=== PATIENT | female | born 1940 | race Caucasian/White ===

== ENCOUNTER → 2017-11-29 09:25 | Outpatient (CLI) | payer MEDICARE, OTHER, SELFPAY ==
[2017-11-29 09:55] LABS: Bacteria Urine None Seen; RBC Urine None Seen (0-5/HPF); WBC Urine None Seen (0-5/HPF)
[2017-11-29 10:14] LABS: Hemoglobin 13.5 g/dL (12.0-16.0); Mean Corpuscular HGB Conc 32.9 % (30-36); Mean Corpuscular Hemoglobin 27.8 PG (26-34); Mean Corpuscular Volume 84.3 fL (80-100); Platelet Count 432 X10^3/uL (150-400); Red Blood Cell Count 4.87 X10^6/uL (4.0-5.2); Red Cell Distribution Width 14.3 % (11.6-14.8); White Blood Cell Count 12.2 X10^3/uL (4.5-11.0)
[2017-11-29 10:27] LABS: INR 2.4 (0.9-1.3)
[2017-11-29 11:06] LABS: Alanine Aminotransferase 52 IU/L (9-52); Albumin 3.7 g/dL (3.5-5.0); Albumin Globulin Ratio 1.3 (1.0-2.8); Alkaline Phosphatase 59 U/L (38-126); Aspartate Aminotransferase 33 IU/L (14-36); Bilirubin Total 0.9 mg/dL (0.2-1.3); Blood Urea Nitrogen 12 mg/dL (7-17); Calcium 8.9 mg/dL (8.4-10.2); Chloride 91 mmol/L (98-107); Estimated Glomerular Filt Rate > 60.0 mL/min (>60); Globulin 2.9 g/dL (1.7-4.1); Glucose 86 mg/dL (80-110); Phosphorous 3.5 mg/dL (2.8-4.1); Potassium 2.8 mmol/L (3.4-5.1); Sodium 140 mmol/L (137-145); Total Protein 6.6 g/dL (6.3-8.2)
[2017-11-29 11:11] LABS: HEMOLYSIS 18 (0-50)
[2017-11-29 12:37] LABS: Carbon Dioxide 40 mmol/L (22-32)
[2017-11-29 13:01] LABS: Appearance Urine UA CLEAR; Bilirubin Urine UA NEGATIVE (NEGATIVE); Color Urine UA YELLOW; Glucose Urine UA NEGATIVE (Normal); Ketones Urine UA NEGATIVE (NEGATIVE); Leukocyte Esterase Urine UA NEGATIVE (NEGATIVE); Nitrite Urine UA Negative (Negative); Occult Blood Urine UA NEGATIVE (Negative); Protein Urine UA NEGATIVE (Negative); Specific Gravity Urine UA <=1.005 (1.000-1.035); Urobilinogen Urine UA 0.2 E.U./dL (0.2)
[2017-11-29 13:51] LABS: Culture Indicated Urine Cult Not Indicated; Urine Comments Microscopic Normal
== END ==
PROVIDERS: PCP Internal Medicine; Visit Provider Specialist
DX: I50.31 Acute diastolic (congestive) heart failure (principal); Z01.818 Encounter for other preprocedural examination; I35.0 Nonrheumatic aortic (valve) stenosis
CPT/HCPCS: 36415; 80053; 80069; 81001; 85027; 85610

== ENCOUNTER → 2017-12-03 09:07 | Outpatient (CLI) | payer MEDICARE, OTHER, SELFPAY ==
[2017-12-03 09:50] LABS: BUN Creatinine Ratio 26.7 (6-22); Blood Urea Nitrogen 16 mg/dL (7-17); Calcium 9.5 mg/dL (8.4-10.2); Carbon Dioxide 33 mmol/L (22-32); Chloride 100 mmol/L (98-107); Estimated Glomerular Filt Rate > 60.0 mL/min (>60); Glucose 89 mg/dL (80-110); HEMOLYSIS < 15 (0-50); Potassium 5.1 mmol/L (3.4-5.1); Sodium 140 mmol/L (137-145)
== END ==
PROVIDERS: PCP Internal Medicine; Visit Provider Specialist
DX: I48.1 Persistent atrial fibrillation (principal); E87.6 Hypokalemia; I50.31 Acute diastolic (congestive) heart failure
CPT/HCPCS: 36415; 80048

== ENCOUNTER 2017-12-10 16:48 | Emergency (ER) | payer MEDICARE, OTHER, SELFPAY ==
--- NOTE | 2017-12-10 16:49 | DI.US.S_ITS ---
PROCEDURE: US ARTERIAL DUPLEX LE LT INDICATIONS: TAVR on Sunday, large painful mass in groin TECHNIQUE: Color and pulse Doppler interrogation was performed of the left groin lower extremity arterial system, with image documentation. COMPARISON: None. FINDINGS: A 43 mm diameter pseudoaneurysm with a short and broad neck is present, arising from the left common femoral artery. IMPRESSION: Broad-necked and short-necked pseudoaneurysm arising from the left common femoral artery. Due to these features, this would not be amenable to percutaneous thrombin injection. Surgical consultation recommended. Dictated by: Nichole Larsen M.D. on 12/10/2017 at 17:15 Approved by: Nichole Larsen M.D. on 12/10/2017 at 17:17
[2017-12-10 16:53] VITALS: BP 144/85; PULSE 92; RESP 21; TEMP 36.8; O2SAT 99
[2017-12-10 17:00] VITALS: BP 147/77; PULSE 97; O2SAT 99
[2017-12-10 17:07] LABS: Add Manual Diff / Slide Review NO; Basophils Percent Auto 0.6 % (0-2); Eosinophils Percent Auto 0.1 % (2-4); Hematocrit 33.7 % (36-46); Hemoglobin 11.1 g/dL (12.0-16.0); Mean Corpuscular HGB Conc 33.1 % (30-36); Mean Corpuscular Hemoglobin 28.1 PG (26-34); Monocytes Percent Auto 5.7 % (3-14); Neutrophils Absolute Auto 12500 /uL (3000-5900); Neutrophils Percent Auto 84.6 % (50-75); Platelet Count 177 X10^3/uL (150-400); Red Blood Cell Count 3.97 X10^6/uL (4.0-5.2); Red Cell Distribution Width 13.9 % (11.6-14.8); White Blood Cell Count 14.8 X10^3/uL (4.5-11.0)
[2017-12-10 17:15] LABS: INR 1.4 (0.9-1.3); Prothrombin Time 14.9 SECONDS (10.1-12.7)
[2017-12-10 17:19] LABS: Alanine Aminotransferase 39 IU/L (9-52); Albumin 3.9 g/dL (3.5-5.0); Albumin Globulin Ratio 1.3 (1.0-2.8); Alkaline Phosphatase 52 U/L (38-126); Aspartate Aminotransferase 30 IU/L (14-36); BUN Creatinine Ratio 26.7 (6-22); Bilirubin Total 0.9 mg/dL (0.2-1.3); Blood Urea Nitrogen 16 mg/dL (7-17); Calcium 9.1 mg/dL (8.4-10.2); Carbon Dioxide 28 mmol/L (22-32); Chloride 98 mmol/L (98-107); Estimated Glomerular Filt Rate > 60.0 mL/min (>60); Globulin 2.9 g/dL (1.7-4.1); Glucose 114 mg/dL (80-110); HEMOLYSIS 22 (0-50); Potassium 3.8 mmol/L (3.4-5.1); Sodium 136 mmol/L (137-145); Total Protein 6.8 g/dL (6.3-8.2)
--- NOTE | 2017-12-10 17:25 | ED.LOWEXIN ---
HPI - Extremity Injury (Lower) General Chief Complaint: Extremity Injury, Lower Stated Complaint: Aneurysm Time Seen by Provider: 12/10/17 16:49 Source: patient, family and EMS Mode of arrival: EMS History of Present Illness HPI Narrative: 76-year-old female on Xarelto with recent TAVR at [facility] in [place] presents to the emergency department via EMS for evaluation of a painful, pulsatile mass in her left groin. She presents from her primary care provider's office with suspicion of pseudoaneurysm in her left groin, confirmed by bedside ultrasound in the office. She complains of increasing pain over the past few days and now a near inability to walk. She denies any injury. She denies chest pain or shortness of breath. She denies numbness, tingling or weakness of her leg. Last solid food at 1400, last water at 1500. MD complaint: thigh injury Onset (ago): day(s) Related Data Home Medications Medication Instructions Recorded Confirmed diltiazem HCl 240 mg PO QDAY #0 07/31/11 levalbuterol tartrate [Xopenex HFA] 1 puff INH Q4HP #0 07/31/11 triamcinolone acetonide [Nasacort] 1 puff INTRANASAL QDAYP PRN #0 07/31/11 levothyroxine 0.112 mg PO QDAY #0 03/01/12 acetaminophen [Tylenol Extra 500 mg PO Q6HP #0 12/28/12 Strength] cetirizine 10 mg PO PRN #0 12/28/12 diazepam [Valium] 5 mg PO Q8HP #0 12/28/12 fluticasone-salmeterol [Advair 1 puff INH BID #0 12/28/12 Diskus] [ALAWAY 0.025%] 1 drp OPHTH BID #0 09/10/17 chlorthalidone 25 mg PO QDAY #0 09/10/17 cholecalciferol (vitamin D3) 1 tab PO QDAY #0 09/10/17 [Vitamin D3] diltiazem HCl [Cardizem] 60 mg PO Q6HP PRN #0 09/10/17 diphenoxylate-atropine 1 tab PO Q6HP PRN #0 09/10/17 omeprazole 20 mg PO BID #0 09/10/17 warfarin [Coumadin] 5 mg PO QDAY #0 09/10/17 Previous Rx's Medication Instructions Recorded budesonide 6 mg PO QDAY #60 cap 09/11/17 fluconazole [Diflucan] 100 mg PO QDAY #10 tab 09/11/17 Allergies Allergy/AdvReac Type Severity Reaction Status Date / Time propoxyphene Allergy Unknown UPSET Unverified 10/10/17 12:54 STOMACH Sulfa (Sulfonamide Allergy Unknown Unverified 10/10/17 12:54 Antibiotics) aspirin AdvReac Mild CONTRAINDICATED Unverified 10/10/17 12:54 WITH WARFARIN Review of Systems Review of Systems All systems reviewed & are unremarkable except as noted in HPI and below Constitutional Denies chills, Denies fever(s), Denies lethargy and Denies weakness Eyes Denies change in vision, Denies eye discharge, Denies irritation and Denies loss of vision ENT Ears, Nose, Mouth, and Throat: Denies change in voice, Denies neck pain and Denies sore throat Cardiovascular Denies chest pain, Denies irregular heart rhythm, Denies lightheadedness, Denies palpitations, Denies dyspnea, Denies dyspnea on exertion and Denies orthopnea Respiratory Denies cough, Denies dyspnea, Denies dyspnea on exertion and Denies wheezing Gastrointestinal Gastrointestinal: Denies abdominal pain, Denies change in bowel habits, Denies diarrhea, Denies nausea and Denies vomiting Genitourinary Denies hematuria, Denies flank pain, Denies urinary incontinence and Denies urinary urgency Musculoskeletal Denies neck pain and Reports radiating pain into limb Integumentary/Breasts Denies pruritus, Denies erythema, Denies rash and Denies wounds Neurologic Denies confusion, Denies loss of vision and Denies weakness Psychiatric Denies anxiety, Denies confusion, Denies depression, Denies homicidal ideation and Denies suicidal ideation Endocrine Denies palpitations Hematologic/Lymphatic Denies easy bruising Allergic/Immunologic Denies wheezing Exam Initial Vital Signs Initial Vital Signs: Vital Signs Temperature 98.2 F 12/10/17 16:53 Pulse Rate 92 H 12/10/17 16:53 Respiratory Rate 21 12/10/17 16:53 Blood Pressure 144/85 H 12/10/17 16:53 Pulse Oximetry 99 12/10/17 16:53 Const General: cooperative and well developed Nutritional Appearance: well nourished Orientation: alert, awake, oriented x3 and not confused Eyes General: appearance normal, both eyes and all related structures Eyelids: eyelids normal Conjunctivae: conjunctivae normal Sclera: sclerae normal Pupils: PERRL EOM: EOM intact bilaterally Resp Effort & Inspection: normal respiratory effort, able to speak in complete sentences, no respiratory distress and no use of accessory muscles Auscultation: clear to auscultation bilaterally, no rales, no rhonchi and no wheezes Cardio Rate: regular rate Rhythm: regular rhythm Heart Sounds: no click, no gallops, no murmurs and no rubs Pulses: normal peripheral pulses Back/Spine/Pelvis Back: No CVA tenderness Cervical Spine: cervical ROM normal and No pain with cervical ROM Thoracic/Lumbar Spine: thoracic and lumbar spine normal to inspection Extrem Other: Tender, palpable, pulsatile mass left groin with significant surrounding ecchymosis. Distal CMS intact Course Orders Ordered: ED Orders 12/10/17 16:49 US arterial duplex LE LT Stat Type and Screen Stat 12/10/17 16:56 Complete Blood Count AUTO DIFF Stat Comprehensive Metabolic Panel Stat Prothrombin Time INR Stat Consultations Consultation #1: Dr. Fink happy to accept patient at [facility] on 6N room 611. They request patient STAT for waiting interventional team Time: 17:34 Vital Signs - 8 hr 12/10/17 16:53 12/10/17 17:00 Temperature 98.2 F Pulse Rate 92 H 97 H Respiratory Rate 21 Blood Pressure 144/85 H Blood Pressure [Left Arm] 147/77 H Pulse Oximetry 99 99 MDM - Extremity Injury (Lower) Medical Records Attestation: I reviewed the patient's medical records. Lab Data Attestation: I reviewed the patient's lab results. Result diagrams: 12/10/17 16:56 12/10/17 16:56 Lab Results 12/10/17 12/10/17 12/10/17 Range/Units 16:56 16:56 16:56 WBC 14.8 H (4.5-11.0) X10^3/uL RBC 3.97 L (4.0-5.2) X10^6/uL Hgb 11.1 L (12.0-16.0) g/dL Hct 33.7 L (36-46) % MCV 85.0 (80-100) fL MCH 28.1 (26-34) PG MCHC 33.1 (30-36) % RDW 13.9 (11.6-14.8) % Plt Count 177 (150-400) X10^3/uL Neut % (Auto) 84.6 H (50-75) % Lymph % (Auto) 9.0 L (25-40) % Sargent % (Auto) 5.7 (3-14) % Eos % (Auto) 0.1 L (2-4) % Baso % (Auto) 0.6 (0-2) % Neut # (Auto) 60481 H (8945-1443) /uL PT 14.9 H (10.1-12.7) SECONDS INR 1.4 H (0.9-1.3) Sodium 136 L (137-145) mmol/L Potassium 3.8 D (3.4-5.1) mmol/L Chloride 98 (98-107) mmol/L Carbon Dioxide 28 (22-32) mmol/L BUN 16 (7-17) mg/dL Creatinine 0.60 (0.52-1.04) mg/dL Estimated GFR > 60.0 (>60) mL/min BUN/Creatinine Ratio 26.7 H (6-22) Glucose 114 H (80-110) mg/dL Calcium 9.1 (8.4-10.2) mg/dL Total Bilirubin 0.9 (0.2-1.3) mg/dL AST 30 (14-36) IU/L ALT 39 (9-52) IU/L Alkaline Phosphatase 52 (38-126) U/L Total Protein 6.8 (6.3-8.2) g/dL Albumin 3.9 (3.5-5.0) g/dL Globulin 2.9 (1.7-4.1) g/dL Albumin/Globulin Ratio 1.3 (1.0-2.8) Imaging Data Art US: Radiologist's impression: 3.9 x 2.4 x 4.3 cm pseudoaneurysm involving left LFA Discharge Plan Departure Patient Disposition: [facility] Clinical Impression: Pseudoaneurysm of left femoral artery Prescriptions: No Action diltiazem HCl 240 MG capsule,extended release 24hr 240 mg PO QDAY Qty: 0 RF: 0 levalbuterol tartrate [Xopenex HFA] 45 MCG/INH HFA aerosol inhaler 1 puff INH Q4HP Qty: 0 RF: 0 triamcinolone acetonide [Nasacort] 55 MCG/PUFF aerosol,spray 1 puff Intranasal QDAYP PRNQty: 0 RF: 0 levothyroxine 112 MCG tablet 0.112 mg PO QDAY Qty: 0 RF: 0 fluticasone-salmeterol [Advair Diskus] 250 MCG/50 MCG blister with device 1 puff INH BID Qty: 0 RF: 0 cetirizine 10 MG tablet 10 mg PO PRN Qty: 0 RF: 0 acetaminophen [Tylenol Extra Strength] 500 MG tablet 500 mg PO Q6HP Qty: 0 RF: 0 diazepam [Valium] 5 MG tablet 5 mg PO Q8HP Qty: 0 RF: 0 chlorthalidone 25 MG tablet 25 mg PO QDAY Qty: 0 RF: 0 diphenoxylate-atropine 2.5 MG/0.025 MG tablet 1 tab PO Q6HP PRNQty: 0 RF: 0 omeprazole 20 MG capsule,delayed release(DR/EC) 20 mg PO BID Qty: 0 RF: 0 cholecalciferol (vitamin D3) [Vitamin D3] 2,000 UNIT tablet 1 tab PO QDAY Qty: 0 RF: 0 [ALAWAY 0.025%] 1 drp OPHTH BID Qty: 0 RF: 0 diltiazem HCl [Cardizem] 60 MG tablet 60 mg PO Q6HP PRNQty: 0 RF: 0 warfarin [Coumadin] 5 MG tablet 5 mg PO QDAY Qty: 0 RF: 0 fluconazole [Diflucan] 100 MG tablet 100 mg PO QDAY Qty: 10 RF: 2 budesonide 3 MG capsule,delayed,extend.release 6 mg PO QDAY Qty: 60 RF: 0
[2017-12-10 17:28] VITALS: BP 143/72; PULSE 90; RESP 19; O2SAT 100
[2017-12-10 17:30] VITALS: BP 143/72; PULSE 87; O2SAT 100
[2017-12-10] MEDS: fentaNYL 100 MCG/2 ML INJ 25 MCG IV (17:47)
== END 2017-12-10 17:49 | disposition short-term general hospital (02) ==
PROVIDERS: Emergency Provider Emergency Medicine; PCP Internal Medicine
DX: I72.4 Aneurysm of artery of lower extremity (principal)
CPT/HCPCS: 36591; 80053; 85025; 85610; 86850; 86900; 86901; 93926; 96374; 99283; 99284; J3010

== ENCOUNTER → 2018-01-03 12:15 | Outpatient (CLI) | payer MEDICARE, OTHER, SELFPAY ==
[2018-01-03 12:38] LABS: Prothrombin Time 71.5 SECONDS (10.1-12.7)
[2018-01-03 13:22] LABS: INR 6.7 (0.9-1.3)
== END ==
PROVIDERS: PCP Internal Medicine; Visit Provider Physician Assistant
DX: I48.91 Unspecified atrial fibrillation (principal)
CPT/HCPCS: 36415; 85610

== ENCOUNTER → 2018-01-07 13:47 | Outpatient (CLI) | payer MEDICARE, OTHER, SELFPAY ==
[2018-01-07 15:01] LABS: BUN Creatinine Ratio 26.7 (6-22); Blood Urea Nitrogen 16 mg/dL (7-17); Calcium 9.5 mg/dL (8.4-10.2); Carbon Dioxide 33 mmol/L (22-32); Chloride 95 mmol/L (98-107); Estimated Glomerular Filt Rate > 60.0 mL/min (>60); Glucose 103 mg/dL (80-110); HEMOLYSIS < 15 (0-50); Potassium 4.7 mmol/L (3.4-5.1); Sodium 139 mmol/L (137-145)
== END ==
PROVIDERS: PCP Internal Medicine; Visit Provider Physician Assistant
DX: I48.1 Persistent atrial fibrillation (principal)
CPT/HCPCS: 36415; 80048

== ENCOUNTER → 2018-01-10 13:56 | Outpatient (CLI) | payer MEDICARE, OTHER, SELFPAY ==
--- NOTE | 2018-01-10 | DI.ECHO.S_ITS ---
[facility]---------+ [facility] +---------+ : : [address] : : : : [phone] : : : : Phone: [phone]+ Echocardiogram Report + + :Name: GABRIELA LAWRENCE Study Date: 01/10/2018 Height: 62 in : :[facility] Weight: 129 lb : : Gender: Female BSA: 1.6 m2 : :: 1940 Age: 77 yrs BP: 138/60 mmHg: :Reason For Study: Aortic valve replacement - bioprosthetic : :Ordering Physician: Homero : :Akira Performed By: Daysi Valentin : :Referring: Dr. Iggy Trujillo : + + Interpretation Summary The left ventricle is normal in size. Left ventricular ejection fraction is estimated to be 65 +/- 5%. There has been no significant change in LV EF since the previous study. The right ventricle is grossly normal size. The right ventricular systolic function is normal. There is a bioprosthetic aortic valve (New). There is mild to moderate perivalvular regurgitation around the prosthetic aortic valve. Ao V2 max: 234.7 cm/sec Ao V2 mean: 150.2 cm/sec Ao max P.0 mmHg Ao mean P.7 mmHg There is mild to moderate tricuspid regurgitation. Compared to the prior echo exam, there has been no change in TR severity. The right ventricular systolic pressure is estimated at 51 mmHg assuming a right atrial pressure of 3 mm Hg. Compared to the prior echo exam, there has been an slight increase in the severity of pulmonary hypertension. Mild atherosclerotic plaque(s) in the aortic arch. Procedure: A two-dimensional transthoracic echocardiogram with color flow and Doppler was performed. The study quality was technically good. Comparison is made with the echocardiogram of 10-31-17. The heart rate ranged between 51-70 bpm during the study. The patient was in atrial fibrillation with heart rates between 51-70 bpm during the exam. Left Ventricle: The left ventricle is normal in size. Left ventricular wall thickness is at the upper limits of normal. There is no thrombus. A false chord is noted (normal variant). Left ventricular ejection fraction is estimated to be 65 +/- 5%. There has been no significant change since the previous study. There are no focal wall motion abnormalities. Diastolic function could not be accurately assessed due to atrial fibrillation. Right Ventricle: The right ventricle is grossly normal size. The right ventricular systolic function is normal. Atria: The left atrium is severely dilated. There is severe biatrial enlargement. Both atria have remained unchanged in size since the prior echo exam. The interatrial septum is intact with no evidence for an atrial septal defect. Mitral Valve: The mitral valve leaflets appear mildly thickened, but open well. There is mild to moderate mitral annular calcification. The mitral valve chordae are thickened and/or calcified. There is mild mitral regurgitation. Compared to the prior echo study, there has been no change in the severity of mitral regurgitation. Aortic Valve: There is a bioprosthetic aortic valve. There is mild to moderate perivalvular regurgitation around the prosthetic aortic valve. Ao V2 max: 234.7 cm/sec Ao V2 mean: 150.2 cm/sec Ao max P.0 mmHg Ao mean P.7 mmHg. Tricuspid Valve: The tricuspid valve leaflets are thin and pliable. There is mild to moderate tricuspid regurgitation. The right ventricular systolic pressure is estimated at 51 mmHg assuming a right atrial pressure of 3 mm Hg. Compared to the prior echo exam, there has been no change in TR severity. Compared to the prior echo exam, there has been an increase in the severity of pulmonary hypertension. Pulmonic Valve: The pulmonic valve is not well seen, but is grossly normal. There is mild pulmonic regurgitation. Great Vessels: The aortic root is normal size. The dimensions of the ascending aorta are normal. Mild atherosclerotic plaque(s) in the aortic arch. The IVC is of normal diameter and collapses greater than 50% with a sniff. This suggests a low right atrial pressure of 3 mm Hg. Pericardium/ Pleura There is no pericardial effusion. There is no pleural effusion. MMode/2D Measurements & Calculations LVIDd: 4.4 cm LVOT diam: 1.8 cm LVIDs: 2.1 cm Ao root diam: 2.7 cm FS: 52.1 % Aortic Jxn: 2.0 cm EPSS: 0.34 cm asc Aorta Diam: 2.7 cm IVSd: 1.1 cm Ao Arch Diam (Prox Trans): 3.0 cm LVPWd: 0.83 cm LV montemayor. diameter/BSA (cm/m^2): 2.8 LV sys. diameter/BSA (cm/m^2): 1.3 LA dimension: 3.3 cm RA long axis: 5.9 cm LA A2 area: 23.8 cm2 RA area: 21.3 cm2 LA A4 area: 22.0 cm2 RA vol: 65.8 ml LA length (vol): 5.4 cm RA : 41.5 ml/m2 LA vol: 82.1 ml IVC diam: 1.7 cm LA vol index: 51.7 ml/m2 RVDd major: 4.9 cm RVD1 (basal): 3.5 cm RVD2 (mid): 2.7 cm Doppler Measurements & Calculations Ao V2 max: 234.7 cm/sec AI P1/2t: 712.7 msec Ao V2 mean: 150.2 cm/sec AI dec slope: 112.6 cm/sec2 Ao max P.0 mmHg Ao mean P.7 mmHg Ao V2 VTI: 49.2 cm Med Peak E' Prabhu: 6.9 cm/sec TR max prabhu: 345.5 cm/sec Lat Peak E' Prabhu: 7.5 cm/sec TR max P.8 mmHg MV P1/2t: 76.3 msec PA V2 max: 112.9 cm/sec PA V2 mean: 69.8 cm/sec PA mean P.4 mmHg PA Accel Time: 0.14 sec MV P1/2t max prabhu: 160.5 cm/sec MVA(P1/2t): 2.9 cm2 Reading Physician:RADHA
== END ==
PROVIDERS: PCP Internal Medicine; Visit Provider Physician Assistant
DX: I08.2 Rheumatic disorders of both aortic and tricuspid valves (principal); Z95.2 Presence of prosthetic heart valve; R60.0 Localized edema
CPT/HCPCS: 93306

== ENCOUNTER → 2018-01-14 13:19 | Outpatient (CLI) | payer MEDICARE, OTHER, SELFPAY ==
[2018-01-14 15:37] LABS: BUN Creatinine Ratio 28.3 (6-22); Blood Urea Nitrogen 17 mg/dL (7-17); Calcium 9.2 mg/dL (8.4-10.2); Carbon Dioxide 34 mmol/L (22-32); Chloride 97 mmol/L (98-107); Estimated Glomerular Filt Rate > 60.0 mL/min (>60); Glucose 109 mg/dL (80-110); HEMOLYSIS < 15 (0-50); Potassium 3.8 mmol/L (3.4-5.1); Sodium 140 mmol/L (137-145)
== END ==
PROVIDERS: PCP Internal Medicine; Visit Provider Physician Assistant
DX: I48.1 Persistent atrial fibrillation (principal)
CPT/HCPCS: 36415; 80048

== ENCOUNTER → 2018-01-17 12:53 | Outpatient (CLI) | payer MEDICARE, OTHER, SELFPAY ==
--- NOTE | 2018-01-17 | DI.US.S_ITS ---
PROCEDURE: US PERIPH VENOUS LOW EXTREM LT INDICATIONS: LEFT LEG EDEMA TECHNIQUE: Real-time imaging, as well as color and pulse Doppler interrogation, were performed of the lower extremity deep veins from the inguinal ligament to the popliteal fossa. COMPARISON: None. FINDINGS: The deep veins are normally compressible, and free of intraluminal thrombus. Color and pulse Doppler demonstrate normal phasic intraluminal flow. There is normal augmentation response to distal compression maneuver. IMPRESSION: No deep venous thrombosis in the left lower extremity. Dictated by: Prisca Oliveira M.D. on 01/17/2018 at 14:51 Approved by: Prisca Oliveira M.D. on 01/17/2018 at 14:52
--- NOTE | 2018-01-17 | DI.US.S_ITS ---
PROCEDURE: US ARTERIAL DUPLEX LE LT INDICATIONS: LEFT LEG EDEMA TECHNIQUE: Color and pulse Doppler interrogation was performed of the left lower extremity arterial system, with image documentation. COMPARISON: [facility], [place], US ARTERIAL DUPLEX LE LT, 12/10/2017, 16:59. FINDINGS: Common femoral artery: 102 cm/sec, with triphasic flow. Deep femoral artery: 76 cm/sec, with biphasic flow. Proximal superficial femoral artery: 91 cm/sec, with biphasic flow. Mid superficial femoral artery: 107 cm/sec, with triphasic flow. Distal superficial femoral artery: 119 cm/sec, with triphasic flow. Popliteal artery: V3 cm/sec, with biphasic flow. Posterior tibial artery: 75 cm/sec, with biphasic flow. Anterior tibial artery/dorsalis pedis: 118 cm/sec, with triphasic flow. Aponte-scale imaging description: Scattered plaques. IMPRESSION: Scattered plaques in the left lower trachea arteries. No hemodynamic significant stenosis. Dictated by: Prisca Oliveira M.D. on 01/17/2018 at 22:24 Transcribed by: LUCIO on 01/17/2018 at 22:31 Approved by: Prisca Oliveira M.D. on 01/18/2018 at 7:40
== END ==
PROVIDERS: PCP Internal Medicine; Visit Provider Physician Assistant
DX: R60.0 Localized edema (principal)
CPT/HCPCS: 93926; 93971

== ENCOUNTER → 2018-01-29 10:50 | Outpatient (CLI) | payer MEDICARE, OTHER, SELFPAY ==
[2018-01-29 12:22] LABS: BUN Creatinine Ratio 26.7 (6-22); Blood Urea Nitrogen 16 mg/dL (7-17); Calcium 9.4 mg/dL (8.4-10.2); Carbon Dioxide 37 mmol/L (22-32); Chloride 98 mmol/L (98-107); Estimated Glomerular Filt Rate > 60.0 mL/min (>60); Glucose 117 mg/dL (80-110); HEMOLYSIS < 15 (0-50); Potassium 3.6 mmol/L (3.4-5.1); Sodium 141 mmol/L (137-145)
== END ==
PROVIDERS: PCP Internal Medicine; Visit Provider Physician Assistant
DX: I48.1 Persistent atrial fibrillation (principal)
CPT/HCPCS: 36415; 80048

== ENCOUNTER → 2018-02-12 09:02 | Outpatient (CLI) | payer MEDICARE, OTHER, SELFPAY ==
[2018-02-12 11:02] LABS: Cholesterol 153 mg/dL (140-199); HDL Cholesterol 61 mg/dL (40-60); LDL Cholesterol Calculated 75 mg/dL (<100); Triglycerides 85 mg/dL (35-150)
== END ==
PROVIDERS: PCP Internal Medicine; Visit Provider Internal Medicine
DX: E78.00 Pure hypercholesterolemia, unspecified (principal)
CPT/HCPCS: 36415; 80061

== ENCOUNTER → 2018-03-07 16:32 | Outpatient (CLI) | payer MEDICARE, OTHER, SELFPAY ==
[2018-03-07 17:51] LABS: Add Manual Diff / Slide Review NO; Basophils Percent Auto 0.4 % (0-2); Eosinophils Percent Auto 0.9 % (2-4); Hematocrit 38.4 % (36-46); Hemoglobin 12.4 g/dL (12.0-16.0); Lymphocytes Percent Auto 16.3 % (25-40); Mean Corpuscular HGB Conc 32.3 % (30-36); Mean Corpuscular Hemoglobin 27.1 PG (26-34); Mean Corpuscular Volume 83.7 fL (80-100); Monocytes Percent Auto 7.2 % (3-14); Neutrophils Absolute Auto 9200 /uL (3000-5900); Neutrophils Percent Auto 75.2 % (50-75); Platelet Count 330 X10^3/uL (150-400); Red Blood Cell Count 4.59 X10^6/uL (4.0-5.2); Red Cell Distribution Width 15.4 % (11.6-14.8); White Blood Cell Count 12.3 X10^3/uL (4.5-11.0)
[2018-03-07 17:56] LABS: BUN Creatinine Ratio 24.3 (6-22); Blood Urea Nitrogen 17 mg/dL (7-17); Carbon Dioxide 30 mmol/L (22-32); Chloride 104 mmol/L (98-107); Estimated Glomerular Filt Rate > 60.0 mL/min (>60); Glucose 94 mg/dL (80-110); HEMOLYSIS < 15 (0-50); Potassium 4.4 mmol/L (3.4-5.1); Sodium 142 mmol/L (137-145)
[2018-03-07 18:18] LABS: Free T4, Direct Thyroxine 1.85 ng/dL (0.78-2.19)
[2018-03-07 18:32] LABS: Thyroid Stimulating Hormone 0.06 uIU/mL (0.47-4.68)
== END ==
PROVIDERS: PCP Internal Medicine; Visit Provider Internal Medicine
DX: E87.6 Hypokalemia (principal); I10 Essential (primary) hypertension
CPT/HCPCS: 36415; 80048; 84439; 84443; 85025

== ENCOUNTER → 2018-04-22 15:23 | Outpatient (CLI) | payer MEDICARE, OTHER, SELFPAY ==
[2018-04-22 18:20] LABS: BUN Creatinine Ratio 31.7 (6-22); Blood Urea Nitrogen 19 mg/dL (7-17); Calcium 8.9 mg/dL (8.4-10.2); Carbon Dioxide 32 mmol/L (22-32); Chloride 100 mmol/L (98-107); Estimated Glomerular Filt Rate > 60.0 mL/min (>60); Glucose 84 mg/dL (80-110); HEMOLYSIS < 15 (0-50); Sodium 141 mmol/L (137-145)
== END ==
PROVIDERS: PCP Internal Medicine; Visit Provider Internal Medicine
DX: I35.0 Nonrheumatic aortic (valve) stenosis (principal)
CPT/HCPCS: 36415; 80048

== ENCOUNTER → 2018-05-24 10:56 | Outpatient (CLI) | payer MEDICARE, OTHER, SELFPAY ==
[2018-05-24 12:04] LABS: Blood Urea Nitrogen 18 mg/dL (7-17); Calcium 8.9 mg/dL (8.4-10.2); Carbon Dioxide 34 mmol/L (22-32); Chloride 99 mmol/L (98-107); Estimated Glomerular Filt Rate > 60.0 mL/min (>60); Glucose 72 mg/dL (80-110); HEMOLYSIS < 15 (0-50); Sodium 143 mmol/L (137-145)
== END ==
PROVIDERS: PCP Internal Medicine; Visit Provider Internal Medicine
DX: I50.21 Acute systolic (congestive) heart failure (principal)
CPT/HCPCS: 36415; 80048

== ENCOUNTER → 2018-06-20 11:01 | Outpatient (CLI) | payer MEDICARE, OTHER, SELFPAY ==
[2018-06-20 13:18] LABS: Blood Urea Nitrogen 15 mg/dL (7-17); Calcium 9.4 mg/dL (8.4-10.2); Carbon Dioxide 34 mmol/L (22-32); Chloride 99 mmol/L (98-107); Estimated Glomerular Filt Rate > 60.0 mL/min (>60); Glucose 77 mg/dL (80-110); HEMOLYSIS < 15 (0-50); Potassium 4.7 mmol/L (3.4-5.1); Sodium 144 mmol/L (137-145)
== END ==
PROVIDERS: PCP Internal Medicine; Visit Provider Internal Medicine
DX: I48.2 Chronic atrial fibrillation (principal)
CPT/HCPCS: 36415; 80048

== ENCOUNTER → 2018-07-23 14:49 | Outpatient (CLI) | payer MEDICARE, OTHER, SELFPAY ==
--- NOTE | 2018-07-23 | DI.ECHO.S_ITS ---
[facility]---------+ [facility] +---------+ : : [address] : [address] : : : : [phone] : : : : Phone: [phone]+ Echocardiogram Report + + :Name: GABRIELA LAWRENCE Study Date: 07/23/2018 Height: 62 in : :[facility] Exam Location: [facility] Weight: 133 lb : : Gender: Female BSA: 1.6 m2 : :: 1940 Age: 77 yrs BP: 130/72 mmHg: :Reason For Study: AVR : : Performed By: Irvin Glaser : :Referring: RUPERT HERNANDES : + + Interpretation Summary Afib with controlled rate. Normal LV size and wall thickness; normal wall motion and LV systolic function. EF is 70-75%. Severe biatrial enlargement. Aortic valve is replaced by history with a stented bioprosthesis via TAVR. There is mild perivalvular leak with associated mild AI. 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 Compared to prior study 12/2017 no changes have occurred. Procedure: A limited 2D, color and Doppler echocardiogram was performed to assess the patient's AVR. The study quality was technically good. Comparison is made with the echocardiogram of 01/10/18. The patient was in atrial fibrillation with controlled ventricular rate during the exam. The patient had a heart rate of 54-92 beats per minute. Left Ventricle: The left ventricle is normal in size. There is normal left ventricular wall thickness. The ejection fraction is estimated to be 70-75%. There are no focal wall motion abnormalities. Right Ventricle: The right ventricle is normal in size and function. Atria: The left atrium is severely dilated. Mitral Valve: There is moderate mitral annular calcification. The mitral valve leaflets are mildly calcified. Aortic Valve: There is a bioprosthetic aortic valve. There is mild perivalvular regurgitation around the prosthetic aortic valve. The peak aortic velocity is 2.29 m/sec. Tricuspid Valve: The tricuspid valve leaflets are thin and pliable. There is moderate tricuspid regurgitation. The right ventricular systolic pressure is estimated to be at least 40 mmHg based on an estimated right atrial pressure of 8 mm Hg. Pulmonic Valve: The pulmonic valve is normal in structure and function. There is trace pulmonic regurgitation. Great Vessels: The dimensions of the ascending aorta are normal. The IVC is dilated (diameter is greater than 2.1 cm) yet it collapses greater than 50% with a sniff. This suggests a right atrial pressure of 8 mm Hg. Pericardium/ Pleura There is no pericardial effusion. There is no pleural effusion. MMode/2D Measurements & Calculations LVIDd: 4.5 cm LVOT diam: 1.8 cm LVIDs: 2.5 cm asc Aorta Diam: 2.4 cm FS: 43.9 % IVSd: 0.83 cm LVPWd: 0.80 cm LV montemayor. diameter/BSA (cm/m^2): 2.8 LV sys. diameter/BSA (cm/m^2): 1.6 IVC diam: 2.2 cm Doppler Measurements & Calculations Ao V2 max: 229.4 cm/sec LVOT Max Prabhu: 118.3 cm/sec Ao V2 mean: 163.3 cm/sec LV V1 max P.6 mmHg Ao max P.1 mmHg LV V1 VTI: 24.5 cm Ao mean P.0 mmHg BLAKE(I,D): 1.1 cm2 Ao V2 VTI: 52.9 cm BLAKE(V,D): 1.3 cm2 sev ratio: 0.46 BLAKE indexed to BSA (cm^2/m^2): 0.71 AI P1/2t: 627.1 msec AI dec slope: 166.4 cm/sec2 TR max prabhu: 283.6 cm/sec SV(LVOT): 60.4 ml TR max P.2 mmHg Electronically signed by: Rupert Hernandes M.D. on Reading Physician:07/24/2018 10:01 AM
== END ==
PROVIDERS: PCP Internal Medicine; Visit Provider Internal Medicine
DX: I08.3 Combined rheumatic disorders of mitral, aortic and tricuspid valves (principal); Z95.2 Presence of prosthetic heart valve
CPT/HCPCS: 93307

== ENCOUNTER → 2018-08-02 12:43 | Outpatient (CLI) | payer MEDICARE, OTHER, SELFPAY ==
[2018-08-02 14:25] LABS: BUN Creatinine Ratio 33.3 (6-22); Blood Urea Nitrogen 20 mg/dL (7-17); Calcium 8.7 mg/dL (8.4-10.2); Carbon Dioxide 35 mmol/L (22-32); Chloride 98 mmol/L (98-107); Estimated Glomerular Filt Rate > 60.0 mL/min (>60); Glucose 90 mg/dL (80-110); HEMOLYSIS < 15 (0-50); Potassium 3.1 mmol/L (3.4-5.1); Sodium 141 mmol/L (137-145)
== END ==
PROVIDERS: PCP Internal Medicine; Visit Provider Internal Medicine
DX: I35.0 Nonrheumatic aortic (valve) stenosis (principal)
CPT/HCPCS: 36415; 80048

== ENCOUNTER → 2018-08-19 12:04 | Outpatient (CLI) | payer MEDICARE, OTHER, SELFPAY ==
[2018-08-19 12:59] LABS: BUN Creatinine Ratio 28.6 (6-22); Blood Urea Nitrogen 20 mg/dL (7-17); Calcium 8.6 mg/dL (8.4-10.2); Carbon Dioxide 33 mmol/L (22-32); Chloride 99 mmol/L (98-107); Estimated Glomerular Filt Rate > 60.0 mL/min (>60); Glucose 55 mg/dL (80-110); HEMOLYSIS < 15 (0-50); Potassium 3.1 mmol/L (3.4-5.1); Sodium 141 mmol/L (137-145)
== END ==
PROVIDERS: PCP Internal Medicine; Visit Provider Internal Medicine
DX: E87.6 Hypokalemia (principal)
CPT/HCPCS: 36415; 80048

== ENCOUNTER 2018-09-12 14:00 | Outpatient (RCR) | payer MEDICARE, OTHER, SELFPAY ==
[2018-02-19 14:43] VITALS: BP 118/60; BP 126/60; RESP 22; O2SAT 98; BMI 23.6
--- NOTE | 2018-03-18 15:36 | CR.REVALNOTE ---
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 CR PSYCHOSOCIAL RE-EVALUATION Progress to Goal slow progress. still discouraged by multiple dx's and different medications. encouraged today by doing a higher level on the NS Stress Managed work in progress. 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 She's concerned she won't be able to do all the stuff she did before, and therefore admits to being a hermit. Psych Consult No Stress Management Class Yes Uses Stress Management Skills Yes Coping Techniques Yes Relaxation Techniques Yes Positive Support Yes Note no changes CR PSYCHOSOCIAL PROVIDER EVAL Treatment Prescribed for Individual Yes Needs No Treatment Change Yes: Please Continue with Cardiopulmonary Rehabilitation as Ordered Date 03/18/18 CR Education Start: 02/19/18 13:57 Freq: Status: Active Protocol: Document 02/21/18 15:31 JCP (Rec: 02/21/18 15:32 JCP [id number]) CR EDUCATION Education FIRST FULL DAY IN CR TOLERATED OK. HAD HER STOP EVERY 5 MINUTES TO CATCH HER BREATH. Document 02/25/18 15:17 JCP (Rec: 02/25/18 15:17 JCP [id number]) CR EDUCATION Education DISCUSSED PACING HERSELF ON THE NUSTEP AND HOW TO BREATH Document 02/27/18 14:27 JCP (Rec: 02/27/18 14:27 JCP [id number]) CR EDUCATION Education EMOTIONS AND HEART DISEASE Document 02/28/18 15:45 CFS (Rec: 02/28/18 15:46 CFS [id number]) CR EDUCATION Education Stated that she was very tired and fatigued yesterday after workout and still feels fatigued today. Low back is bothering her today. Discussed again to do what she can. Document 03/06/18 15:12 NHAN (Rec: 03/06/18 15:12 NHAN [id number]) CR EDUCATION Education mets with [facility] Education pt intro and hx review Document 03/13/18 14:13 NHAN (Rec: 03/13/18 14:13 NHAN [id number]) CR EDUCATION Education CARDIAC STRUCTURE
[2018-04-17 15:03] VITALS: BP 130/64
[2018-06-17 16:02] VITALS: BP 114/68
[2018-07-15 15:41] VITALS: BP 126/72
[2018-08-14 15:57] VITALS: BP 110/58
[2018-09-12 15:37] VITALS: BP 136/72; BMI 23.2
== END 2018-09-13 15:11 ==
LOC: CAR 14:00
PROVIDERS: PCP Internal Medicine; Visit Provider Specialist
DX: Z95.2 Presence of prosthetic heart valve (principal)
CPT/HCPCS: 93797; 93798

== ENCOUNTER 2018-09-15 12:42 | Emergency (ER) | payer MEDICARE, OTHER, SELFPAY ==
[2018-09-15 12:50] VITALS: BP 158/88; PULSE 73; RESP 16; TEMP 36.6; O2SAT 100
--- NOTE | 2018-09-15 14:04 | ED.WOUNDLAC ---
HPI - Wound/Laceration General Chief Complaint: Wound/Laceration Stated Complaint: Hit in head, laceration Time Seen by Provider: 09/15/18 12:56 Source: patient and family Mode of arrival: ambulatory Limitations: no limitations History of Present Illness HPI narrative: Patient presents the emergency department after hitting her head with the handle of some clippers she was using while gardening. Patient states she did not get knocked out, and her main concern is that she has a wound at the edge of her right eyebrow. Patient is on Coumadin for aortic valve replacement, and states she bleeds more easily than usual. Her last INR was 3.5. Patient denies any other injuries. She denies visual changes or neurologic deficits otherwise. No headache. No other complaints this time. She states her last tetanus shot was about a week and half ago. Related Data Home Medications Medication Instructions Recorded Confirmed triamcinolone acetonide [Nasacort] 1 puff INTRANASAL QDAYP PRN #0 07/31/11 03/06/18 levothyroxine 0.112 mg PO QDAY #0 03/01/12 03/06/18 acetaminophen [Tylenol Extra 500 mg PO Q6HP PRN #0 12/28/12 03/06/18 Strength] diazepam [Valium] 5 mg PO Q8HP PRN #0 12/28/12 03/06/18 fluticasone-salmeterol [Advair 1 puff INH BID #0 12/28/12 03/06/18 Diskus] [ALAWAY 0.025%] 1 drp OPHTH BID #0 09/10/17 03/06/18 diltiazem HCl [Cardizem] 60 mg PO Q6HP PRN #0 09/10/17 03/06/18 diphenoxylate-atropine 1 tab PO Q6HP PRN #0 09/10/17 03/06/18 omeprazole 20 mg PO DAILY #0 09/10/17 03/06/18 warfarin [Coumadin] 5 mg PO QDAY #0 09/10/17 03/06/18 Vitamin D3 1 tab PO DAILY 12/10/17 03/06/18 amlodipine 5 mg PO DAILY 12/10/17 03/06/18 atorvastatin 80 mg PO BEDTIME 12/10/17 03/06/18 benzonatate 1 cap PO Q8H PRN 12/10/17 03/06/18 budesonide 9 mg PO QDAY 12/10/17 03/06/18 cetirizine [Zyrtec] 10 mg PO DAILY PRN 12/10/17 03/06/18 furosemide 40 mg PO DAILY 12/10/17 03/06/18 ketotifen fumarate [Alaway] 1 drp OPHTHALMIC (EYE) BID 12/10/17 03/06/18 levalbuterol tartrate [Xopenex HFA] 1 puff INHALATION Q4H PRN 12/10/17 03/06/18 nystatin 5 ml PO QID 12/10/17 03/06/18 potassium chloride 20 meq PO TID 12/10/17 03/06/18 rivaroxaban [Xarelto] 20 mg PO QPM 12/10/17 03/06/18 ticagrelor [Brilinta] 1 tab PO BID 12/10/17 03/06/18 warfarin 2 mg PO DIRECTED 12/10/17 03/06/18 Respironics DreamStation Auto CPAP #1 ea 08/08/18 08/08/18 metoprolol succinate ER 50 mg 50 mg PO DAILY 08/09/18 tablet,extended release 24 hr Allergies Allergy/AdvReac Type Severity Reaction Status Date / Time propoxyphene Allergy Unknown UPSET Unverified 03/06/18 13:11 STOMACH Sulfa (Sulfonamide Allergy Unknown Unverified 03/06/18 13:11 Antibiotics) aspirin AdvReac Mild CONTRAINDICATED Unverified 03/06/18 13:11 WITH WARFARIN Review of Systems Constitutional Denies chills, Denies fever(s), Denies lethargy and Denies weakness Eyes Denies change in vision, Denies eye discharge, Denies irritation and Denies loss of vision ENT Ears, Nose, Mouth, and Throat: Denies change in voice, Denies neck pain and Denies sore throat Cardiovascular Denies chest pain, Denies irregular heart rhythm, Denies lightheadedness, Denies palpitations, Denies dyspnea, Denies dyspnea on exertion and Denies orthopnea Respiratory Denies cough, Denies dyspnea, Denies dyspnea on exertion and Denies wheezing Gastrointestinal Gastrointestinal: Denies abdominal pain, Denies change in bowel habits, Denies diarrhea, Denies nausea and Denies vomiting Genitourinary Denies hematuria, Denies flank pain, Denies urinary incontinence and Denies urinary urgency Musculoskeletal Denies neck pain Integumentary/Breasts Denies pruritus, Denies erythema, Denies rash and Denies wounds Comments: Laceration right eyebrow. Neurologic Denies confusion, Denies loss of vision and Denies weakness Psychiatric Denies anxiety, Denies confusion, Denies depression, Denies homicidal ideation and Denies suicidal ideation Endocrine Denies palpitations Hematologic/Lymphatic Denies easy bruising Allergic/Immunologic Denies wheezing [facility] Medical History Laceration (Acute) Obstructive sleep apnea of adult (Chronic) Colitis (Acute) Acute chest pain (Acute) Surgical History H/O prosthetic aortic valve replacement (Acute) Social History Smoking Status: Never smoker Social History Smoking Status: Never smoker Exam Initial Vital Signs Initial Vital Signs: Vital Signs Temperature 97.8 F 09/15/18 12:50 Pulse Rate 73 09/15/18 12:50 Respiratory Rate 16 09/15/18 12:50 Blood Pressure 158/88 H 09/15/18 12:50 Pulse Oximetry 100 09/15/18 12:50 Const General: cooperative and well developed Nutritional Appearance: well nourished Orientation: alert, awake, oriented x3 and not confused [facility] Head: normocephalic, atraumatic and laceration (1 cm laceration at distal aspect right eyebrow. Bleeding controlled. No FB.) Ears: external ears normal Nose: external nose normal and No nasal discharge Face and sinus: face symmetric and No dry mucous membranes Mouth: oral mucosae normal and moist mucous membranes Teeth and gingiva: dentition normal Eyes General: appearance normal, both eyes and all related structures Eyelids: eyelids normal Conjunctivae: conjunctivae normal Sclera: sclerae normal Pupils: PERRL EOM: EOM intact bilaterally Neck Neck: normal visual inspection, trachea midline, No lymphadenopathy, No midline deformity and No JVD Lymphatic: No lymphedema Chest Chest: normal inspection of the chest Resp Effort & Inspection: normal respiratory effort, able to speak in complete sentences, no respiratory distress and no use of accessory muscles Back/Spine/Pelvis Back: No CVA tenderness Cervical Spine: cervical ROM normal and No pain with cervical ROM Thoracic/Lumbar Spine: thoracic and lumbar spine normal to inspection Skin General: no rashes or lesions noted, No jaundice and No petechiae Neuro General: alert, oriented x3, gait normal and no focal motor deficits Speech: speech normal Extrem General: full ROM, no clubbing, cyanosis or edema, no pedal edema and no calf tenderness Psych Appearance: well kempt Mental Status: mental status grossly normal Attitude: cooperative Thought Content: normal and suicidality Judgment: judgment good Procedures Laceration Repair Laceration 1: Site: face Side (If applicable): right Size (cm): 1 Description: linear Depth: simple, single layer Local Anesthetic: lidocaine 2% Amount of anesthesia used (mL): 2 Pre-repair: wound explored, irrigated extensively and deep structures intact Skin layer closed with: nylon Size (cm): 5-0 Number of sutures: 3 Technique: simple, interrupted Course Course Narrative: Patient was very well appearing, and had had very superficial, minimal trauma to her head. As such, I did not suspect or feel the patient was at risk for intracranial hemorrhage. As such, I did not feel that imaging was indicated. The patient was alert and neurologically intact. We have discussed wound care at home, as well as the timeline for suture removal. We have discussed follow-up for this. We have also discussed the usual indications for return. Patient and expressed understanding. Vital Signs - 8 hr 09/15/18 12:50 09/15/18 14:18 Temperature 97.8 F Pulse Rate 73 70 Respiratory Rate 16 15 Blood Pressure 158/88 H Blood Pressure [Right Arm] 150/84 H Pulse Oximetry 100 97 MDM - Wound/Laceration Medical Records Attestation: I reviewed the patient's medical records. Discharge Plan Departure Patient Disposition: Home Clinical Impression: Laceration Instructions: How to Care for a Laceration After Repair, DI for Laceration Repair Activity Restrictions/Additional Instructions: Please keep your wound clean and dry. You may let water run over the wound in the shower, but do not rub, scrub or immerse the wound until sutures are removed. Sutures should be removed in 5-7 days. You may see your primary doctor or urgent care for this. If you develop signs of wound infection, as we have discussed, please be seen at that time. Prescriptions: No Action triamcinolone acetonide [Nasacort] 55 MCG/PUFF aerosol,spray 1 puff Intranasal QDAYP PRN (Reason: Congestion) Qty: 0 RF: 0 levothyroxine 112 MCG tablet 0.112 mg PO QDAY Qty: 0 RF: 0 fluticasone-salmeterol [Advair Diskus] 250 MCG/50 MCG blister with device 1 puff INH BID Qty: 0 RF: 0 acetaminophen [Tylenol Extra Strength] 500 MG tablet 500 mg PO Q6HP PRN (Reason: Pain, Mild) Qty: 0 RF: 0 diazepam [Valium] 5 MG tablet 5 mg PO Q8HP PRN (Reason: Anxiety) Qty: 0 RF: 0 diphenoxylate-atropine 2.5 MG/0.025 MG tablet 1 tab PO Q6HP PRN (Reason: Diarrhea) Qty: 0 RF: 0 omeprazole 20 MG capsule,delayed release(DR/EC) 20 mg PO DAILY Qty: 0 RF: 0 [ALAWAY 0.025%] 1 drp OPHTH BID Qty: 0 RF: 0 diltiazem HCl [Cardizem] 60 MG tablet 60 mg PO Q6HP PRN (Reason: palpitations) Qty: 0 RF: 0 warfarin [Coumadin] 5 MG tablet 5 mg PO QDAY Qty: 0 RF: 0 atorvastatin 80 mg tablet 80 mg PO BEDTIME RF: 0 nystatin 100,000 unit/mL suspension 5 ml PO QID RF: 0 potassium chloride 10 mEq Capsule, Extended Release 20 meq PO TID RF: 0 cetirizine [Zyrtec] 10 mg Tablet 10 mg PO DAILY PRN (Reason: Allergy Symptoms) RF: 0 benzonatate 200 mg capsule 1 cap PO Q8H PRN (Reason: Cough) RF: 0 ketotifen fumarate [Alaway] 0.025 % (0.035 %) Drops 1 drp ophthalmic (eye) BID RF: 0 amlodipine 5 mg tablet 5 mg PO DAILY RF: 0 warfarin 2 mg tablet 2 mg PO DIRECTED RF: 0 furosemide 20 mg tablet 40 mg PO DAILY RF: 0 levalbuterol tartrate [Xopenex HFA] 45 mcg/actuation Hfa Aerosol Inhaler 1 puff INHALATION Q4H PRN (Reason: Shortness Of Breath) RF: 0 ticagrelor [Brilinta] 90 mg tablet 1 tab PO BID RF: 0 rivaroxaban [Xarelto] 20 mg tablet 20 mg PO QPM RF: 0 Vitamin D3 3,000 unit tablet 1 tab PO DAILY RF: 0 budesonide 3 MG capsule,delayed,extend.release 9 mg PO QDAY RF: 0 Respironics DreamStation Auto CPAP Qty: 1 RF: 0 metoprolol succinate 50 mg tablet extended release 24 hr 50 mg PO DAILY RF: 0 Referrals: Iggy Trujillo MD [Primary Care Provider] -
[2018-09-15 14:18] VITALS: BP 150/84; PULSE 70; RESP 15; O2SAT 97
[2018-09-15 15:21] VITALS: BP 132/86; PULSE 72; RESP 16; O2SAT 100
== END 2018-09-15 15:00 | disposition home or self-care (01) ==
PROVIDERS: Emergency Provider Emergency Medicine; PCP Internal Medicine
DX: S01.111A Laceration without foreign body of right eyelid and periocular area, initial encounter (principal)
CPT/HCPCS: 99282; 99283

== ENCOUNTER → 2018-09-30 13:30 | Outpatient (CLI) | payer MEDICARE, OTHER, SELFPAY ==
[2018-09-30 14:41] LABS: Blood Urea Nitrogen 21 mg/dL (7-17); Calcium 9.2 mg/dL (8.4-10.2); Carbon Dioxide 33 mmol/L (22-32); Chloride 101 mmol/L (98-107); Estimated Glomerular Filt Rate > 60.0 mL/min (>60); Glucose 102 mg/dL (80-110); HEMOLYSIS < 15 (0-50); Potassium 5.1 mmol/L (3.4-5.1); Sodium 143 mmol/L (137-145)
== END ==
PROVIDERS: PCP Internal Medicine; Visit Provider Internal Medicine
DX: I35.0 Nonrheumatic aortic (valve) stenosis (principal)
CPT/HCPCS: 36415; 80048

== ENCOUNTER → 2018-10-04 13:54 | Outpatient (CLI) | payer MEDICARE, OTHER, SELFPAY ==
--- NOTE | 2018-10-04 | DI.MG.S_ITS ---
BILATERAL DIGITAL SCREENING MAMMOGRAM 3D/2D WITH CAD: 10/04/2018 CLINICAL: Routine screening. Comparison is made to exams dated: 10/01/2017 mammogram, 09/28/2016 mammogram, and 09/27/2015 mammogram - [facility]. The tissue of both breasts is heterogeneously dense. This may lower the sensitivity of mammography. Current study was also evaluated with a Computer Aided Detection (CAD) system. There are benign vascular calcifications in both breasts. No significant masses, calcifications, or other findings are seen in either breast. There has been no significant interval change. IMPRESSION: There is no mammographic evidence of malignancy. A 1 year screening mammogram is recommended. This exam was interpreted at Station ID: [id number]. NOTE: For mammograms, a report in lay terms will be sent to the patient. Approximately 15% of breast malignancies will not be visualized mammographically. In the management of a palpable breast mass, a negative mammogram must not discourage biopsy of a clinically suspicious lesion. Electronically Signed By: Landon rock/estela:10/04/2018 14:59:32 letter sent: Normal Exam ACR BI-RADS Category 2: Benign Finding(s) 3342F
== END ==
PROVIDERS: PCP Internal Medicine; Visit Provider Internal Medicine
DX: Z12.31 Encounter for screening mammogram for malignant neoplasm of breast (principal)
CPT/HCPCS: 77063; 77067

== ENCOUNTER → 2018-11-28 12:10 | Outpatient (CLI) | payer MEDICARE, OTHER, SELFPAY ==
--- NOTE | 2018-11-28 | DI.RAD.S_ITS ---
PROCEDURE: XR LUMBAR SPINE 2-3V INDICATIONS: LOW BACK PAIN TECHNIQUE: 3 views of the lumbar spine were acquired. COMPARISON: [facility], CT, ABDOMEN/PELVIS WITH CONTRAST, 05/19/2015, 2:23. FINDINGS: Bones: 5 [id number] vertebrae are present. There is normal bony alignment. No definite acute vertebral body compression fractures. No suspicious bony lesions. Degenerative disc disease is moderately severe at L5-S1 as is facet osteoarthritis. There is an inferior endplate mild impaction injury involving the L1 vertebral body, and this does not appear to have been present in May [address] scanning Soft tissues: Overlying bowel gas pattern is normal. No suspicious soft tissue calcifications. IMPRESSION: Moderately severe to severe degenerative disc disease and facet osteoarthritis at L5-S1. Please correlate for whether some form of prior trauma has occurred subsequent to the CT scan from May of 2015 to explain the inferior endplate mild compression fracture of L1, chronicity uncertain. It is possible that this is acute or subacute by appearance but considered more likely chronic. Dictated by: Pj Dave M.D. on 11/28/2018 at 13:17 Approved by: Pj Dave M.D. on 11/28/2018 at 13:19
== END ==
PROVIDERS: PCP Internal Medicine; Visit Provider Internal Medicine
DX: M54.5 Low back pain (principal); M51.37 Other intervertebral disc degeneration, lumbosacral region; M47.817 Spondylosis without myelopathy or radiculopathy, lumbosacral region
CPT/HCPCS: 72100

== ENCOUNTER 2018-12-01 22:36 | Inpatient (IN) | payer MEDICARE, OTHER, SELFPAY ==
[2018-12-01 22:53] VITALS: BP 173/91; PULSE 57; RESP 20; TEMP 36.5; O2SAT 100; BMI 27.1
--- NOTE | 2018-12-01 22:53 | DI.RAD.S_ITS ---
PROCEDURE: XR CHEST 1V INDICATIONS: SOB, CP TECHNIQUE: One view of the chest was acquired. COMPARISON: [facility], , CHEST 1 VIEW, 09/10/2017, 13:25. FINDINGS: Surgical changes and devices: Cardiac valvular postsurgical changes Lungs and pleura: No acute consolidation. Scattered subsegmental atelectasis and/or scarring. No pleural effusions or pneumothorax. Mediastinum: Mediastinal contours appear normal. Heart size is stable. Bones and chest wall: No suspicious bony lesions. Overlying soft tissues appear unremarkable. IMPRESSION: No acute disease or interval change Dictated by: Chris Lal M.D. on 12/02/2018 at 8:11 Approved by: Chris Lal M.D. on 12/02/2018 at 8:13
--- NOTE | 2018-12-01 23:03 | ED.CHESTPAIN ---
HPI - Chest Pain General Chief Complaint: Chest Pain Stated Complaint: valve replacement,SOB,swelling hands and feet Time Seen by Provider: 12/01/18 22:41 Source: patient and family Mode of arrival: ambulatory Limitations: no limitations History of Present Illness HPI narrative: 77F nonsmoker with cardiac history presents with 2 weeks of progressive lower extremity swelling, SOB, and weight gain of about 10 pounds. She is not dizzy, weak or lightheaded. She complains of exertional dyspnea and orthopnea. She denies any medication change or dietary change. She has had not N/V/D. She is under the care of cardiology at [facility]. She is due for her annual echo next week. Onset (ago): day(s) Duration: constant Associated symptoms: dyspnea Related Data Home Medications Medication Instructions Recorded Confirmed triamcinolone acetonide [Nasacort] 1 puff INTRANASAL QDAYP PRN #0 07/31/11 11/07/18 levothyroxine 0.112 mg PO QDAY #0 03/01/12 11/07/18 acetaminophen [Tylenol Extra 500 mg PO Q6HP PRN #0 12/28/12 11/07/18 Strength] diazepam [Valium] 5 mg PO Q8HP PRN #0 12/28/12 11/07/18 fluticasone propion-salmeterol 1 puff INH BID #0 12/28/12 11/07/18 [Advair Diskus] [ALAWAY 0.025%] 1 drp OPHTH BID #0 09/10/17 11/07/18 diltiazem HCl [Cardizem] 60 mg PO Q6HP PRN #0 09/10/17 11/07/18 diphenoxylate-atropine 1 tab PO Q6HP PRN #0 09/10/17 11/07/18 warfarin [Coumadin] 5 mg PO QDAY #0 09/10/17 11/07/18 Vitamin D3 1 tab PO DAILY 12/10/17 11/07/18 atorvastatin 80 mg PO BEDTIME 12/10/17 11/07/18 budesonide 9 mg PO QDAY 12/10/17 11/07/18 cetirizine [Zyrtec] 10 mg PO DAILY PRN 12/10/17 11/07/18 furosemide 40 mg PO DAILY 12/10/17 11/07/18 ketotifen fumarate [Alaway] 1 drp OPHTHALMIC (EYE) BID 12/10/17 11/07/18 levalbuterol tartrate [Xopenex HFA] 1 puff INHALATION Q4H PRN 12/10/17 11/07/18 nystatin 5 ml PO QID 12/10/17 11/07/18 potassium chloride 20 meq PO TID 12/10/17 11/07/18 warfarin 2 mg PO DIRECTED 12/10/17 11/07/18 Respironics DreamStation Auto CPAP #1 ea 08/08/18 11/07/18 metoprolol succinate ER 50 mg 50 mg PO DAILY 08/09/18 11/07/18 tablet,extended release 24 hr clopidogrel 75 mg tablet 75 mg PO DAILY 11/07/18 11/07/18 mirtazapine 7.5 mg tablet 7.5 mg PO DAILY 11/07/18 11/07/18 ranitidine 150 mg tablet 150 mg PO DAILY 11/07/18 11/07/18 Allergies Allergy/AdvReac Type Severity Reaction Status Date / Time propoxyphene Allergy Unknown UPSET Unverified 11/07/18 14:33 STOMACH Sulfa (Sulfonamide Allergy Unknown Verified 12/01/18 22:59 Antibiotics) acetaminophen Allergy Verified 12/01/18 22:59 [From [facility]-N 100] azithromycin Allergy Difficulty Verified 12/01/18 22:59 Breathing aspirin AdvReac Mild CONTRAINDICATED Unverified 11/07/18 14:33 WITH WARFARIN pantoprazole AdvReac Gastrointestinal Verified 12/01/18 22:59 Upset trazodone AdvReac Depression Verified 12/01/18 22:59 Review of Systems Constitutional Denies chills, Denies fever(s), Denies lethargy and Denies weakness Eyes Denies change in vision, Denies eye discharge, Denies irritation and Denies loss of vision ENT Ears, Nose, Mouth, and Throat: Denies change in voice, Denies neck pain and Denies sore throat Cardiovascular Denies chest pain, Denies irregular heart rhythm, Reports leg edema, Denies lightheadedness, Denies palpitations, Reports dyspnea, Reports dyspnea on exertion and Reports orthopnea Respiratory Denies cough, Reports dyspnea, Reports dyspnea on exertion and Denies wheezing Gastrointestinal Gastrointestinal: Denies abdominal pain, Denies change in bowel habits, Denies diarrhea, Denies nausea and Denies vomiting Genitourinary Denies hematuria, Denies flank pain, Denies urinary incontinence and Denies urinary urgency Musculoskeletal Denies neck pain Integumentary/Breasts Denies pruritus, Denies erythema, Denies rash and Denies wounds Neurologic Denies confusion, Denies loss of vision and Denies weakness Psychiatric Denies anxiety, Denies confusion, Denies depression, Denies homicidal ideation and Denies suicidal ideation Endocrine Denies palpitations Hematologic/Lymphatic Denies easy bruising Allergic/Immunologic Denies wheezing [facility] Medical History Obstructive sleep apnea of adult (Chronic) Colitis (Acute) Acute chest pain (Acute) Laceration (Inactive) Surgical History H/O prosthetic aortic valve replacement (Acute) Social History (Updated 11/07/18 @ 16:07 by LYN Hughes) marital status: details: to Alena, lives in [place] household members: spouse lives independently: Yes caregiver/support person: No housing: house Smoking Status: Never smoker Social History marital status: details: to Alena, lives in [place] household members: spouse lives independently: Yes caregiver/support person: No housing: house Smoking Status: Never smoker Exam Narrative Exam Narrative: GENERAL: Pleasant 77-year-old female appears stated age, in mild distress HEAD: Atraumatic. Normocephalic. No temporal or scalp tenderness. EYES: Pupils equal round and reactive. Extraocular motions intact. No scleral icterus. No injection or drainage. ENT: Nose without bleeding, purulent drainage or septal hematoma. Throat without erythema, tonsillar hypertrophy or exudate. Uvula midline. Airway patent. NECK: Trachea midline. No JVD or lymphadenopathy. Supple, nontender, no meningeal signs. CARDIOVASCULAR: Regular rate and rhythm without murmurs, gallops, or rubs. RESPIRATORY: Faint crackles in bilateral bases GASTROINTESTINAL: Abdomen soft, non-tender, nondistended. No hepato-splenomegaly, or palpable masses. No guarding. EXTREMITIES: 2+ pitting edema in bilateral lower extremities BACK: Nontender without deformity or crepitance. No flank tenderness. NEURO: AOx3. SKIN: No rash or erythema. Initial Vital Signs Initial Vital Signs: Vital Signs Temperature 97.7 F 12/01/18 22:53 Pulse Rate 57 L 12/01/18 22:53 Respiratory Rate 20 12/01/18 22:53 Blood Pressure 173/91 H 12/01/18 22:53 Pulse Oximetry 100 12/01/18 22:53 Course Orders Ordered: ED Orders 12/01/18 22:53 XR chest 1V Stat 12/01/18 23:15 B Type Natriuretic Peptide Stat Complete Blood Count AUTO DIFF Stat Comprehensive Metabolic Panel Stat Lipase Stat Troponin & CK Cardiac Panel Stat Discontinued Medications Furosemide (Lasix) 40 mg IV NOW ONE Stop: 12/01/18 23:48 Last Admin: 12/02/18 00:08 Dose: 40 mg Consultations Consultation #1: call to Dr. Fan (cardiology at [facility]) whom recommends admitting patient here, continuing to diuresis, working on BP and obtaining echo. Vital Signs - 8 hr 12/01/18 22:53 12/02/18 00:56 12/02/18 01:35 Temperature 97.7 F Pulse Rate 57 L 71 60 Respiratory Rate 20 15 15 Blood Pressure 173/91 H Blood Pressure [Right Arm] 145/104 H 151/80 H Pulse Oximetry 100 97 98 12/02/18 02:18 Temperature Pulse Rate 70 Respiratory Rate 19 Blood Pressure Blood Pressure [Right Arm] 142/94 H Pulse Oximetry 98 MDM - Chest Pain Lab Data Result diagrams: 12/01/18 23:15 12/01/18 23:15 Lab Results 12/01/18 12/01/18 Range/Units 23:15 23:15 WBC 8.4 (4.5-11.0) X10^3/uL RBC 4.83 (4.0-5.2) X10^6/uL Hgb 12.6 (12.0-16.0) g/dL Hct 38.8 (36-46) % MCV 80.3 (80-100) fL MCH 26.1 (26-34) PG MCHC 32.5 (30-36) % RDW 17.4 H (11.6-14.8) % Plt Count 279 (150-400) X10^3/uL Neut % (Auto) 66.4 (50-75) % Lymph % (Auto) 21.6 L (25-40) % [place] % (Auto) 9.4 (3-14) % Eos % (Auto) 2.0 (2-4) % Baso % (Auto) 0.6 (0-2) % Neut # (Auto) 5600 (2587-2355) /uL Lymph # (Auto) 1800 (7473-8295) /uL [place] # (Auto) 800 (0-900) /uL Eos # (Auto) 200 (0-450) /uL Baso # (Auto) 100 (0-100) /uL Sodium 137 (137-145) mmol/L Potassium 3.8 (3.4-5.1) mmol/L Chloride 98 (98-107) mmol/L Carbon Dioxide 34 H (22-32) mmol/L BUN 21 H (7-17) mg/dL Creatinine 0.70 (0.52-1.04) mg/dL Estimated GFR > 60.0 (>60) mL/min BUN/Creatinine Ratio 30.0 H (6-22) Glucose 89 (80-110) mg/dL Calcium 8.8 (8.4-10.2) mg/dL Total Bilirubin 0.7 (0.2-1.3) mg/dL AST 48 H (14-36) IU/L ALT 51 (9-52) IU/L Alkaline Phosphatase 107 (38-126) U/L Total Creatine Kinase 28 L (30-135) U/L CK-MB (CK-2) TNP CK-MB (CK-2) Rel Index TNP Troponin I < 0.012 (0.01-0.034) ng/mL B-Natriuretic Peptide 452 H (<100) Total Protein 6.5 (6.3-8.2) g/dL Albumin 3.7 (3.5-5.0) g/dL Globulin 2.8 (1.7-4.1) g/dL Albumin/Globulin Ratio 1.3 (1.0-2.8) Lipase 253 (23-300) U/L Urine Dip Bedside Urine Glucose Negative Bedside Urine Bilirubin - Negative Bedside Urine Ketone - Negative Urine Specific Mellen 1.015 Bedside Urine Occult Blood - Negative Bedside Urine pH 6.0 Bedside Urine Protein - Negative Bedside Urine Urobilinogen - Negative Bedside Urine Nitrite - Negative Bedside Urine Leukocytes - Negative Esterase Imaging Data Chest x-ray: Attestation: I personally reviewed and interpreted this imaging study as follows: My impression: CHF MDM Narrative Medical decision making narrative: 77F with CAD s/p coronary stent x2 and TAVR presents with classic complaints of AECHF as evidenced by orthopnea, exertional dyspnea, lower extremity edema and weight gain. She has no increased oxygne requirements at rest but has a clear change in her clinical picture with no obvious etiology. Cardiology strongly recommends admission here with further evaluation and diuresis. Discharge Plan Departure Patient Disposition: Admitted as Observation Clinical Impression: Acute CHF Qualifiers: Heart failure type: unspecified Qualified Code(s): I50.9 - Heart failure, unspecified
[2018-12-01 23:24] LABS: Add Manual Diff / Slide Review NO; Basophils Absolute Auto 100 /uL (0-100); Basophils Percent Auto 0.6 % (0-2); Eosinophils Absolute Auto 200 /uL (0-450); Hematocrit 38.8 % (36-46); Hemoglobin 12.6 g/dL (12.0-16.0); Lymphocytes Absolute Auto 1800 /uL (1100-4500); Lymphocytes Percent Auto 21.6 % (25-40); Mean Corpuscular HGB Conc 32.5 % (30-36); Mean Corpuscular Hemoglobin 26.1 PG (26-34); Mean Corpuscular Volume 80.3 fL (80-100); Monocytes Absolute Auto 800 /uL (0-900); Monocytes Percent Auto 9.4 % (3-14); Neutrophils Absolute Auto 5600 /uL (1500-7000); Neutrophils Percent Auto 66.4 % (50-75); Platelet Count 279 X10^3/uL (150-400); Red Blood Cell Count 4.83 X10^6/uL (4.0-5.2); Red Cell Distribution Width 17.4 % (11.6-14.8); White Blood Cell Count 8.4 X10^3/uL (4.5-11.0)
[2018-12-01 23:36] LABS: Alanine Aminotransferase 51 IU/L (9-52); Albumin 3.7 g/dL (3.5-5.0); Albumin Globulin Ratio 1.3 (1.0-2.8); Alkaline Phosphatase 107 U/L (38-126); Aspartate Aminotransferase 48 IU/L (14-36); Bilirubin Total 0.7 mg/dL (0.2-1.3); Blood Urea Nitrogen 21 mg/dL (7-17); Calcium 8.8 mg/dL (8.4-10.2); Carbon Dioxide 34 mmol/L (22-32); Chloride 98 mmol/L (98-107); Creatine Kinase 28 U/L (30-135); Estimated Glomerular Filt Rate > 60.0 mL/min (>60); Globulin 2.8 g/dL (1.7-4.1); Glucose 89 mg/dL (80-110); HEMOLYSIS < 15 (0-50); Lipase 253 U/L (23-300); Potassium 3.8 mmol/L (3.4-5.1); Sodium 137 mmol/L (137-145); Total Protein 6.5 g/dL (6.3-8.2)
[2018-12-01 23:47] LABS: B Type Natriuretic Peptide 452 (<100)
[2018-12-01 23:48] LABS: Troponin I < 0.012 ng/mL (0.01-0.034)
[2018-12-02] VITALS (10 sets, daily range): BP systolic 107–172; BP diastolic 65–104; PULSE 55–71; RESP 12–19; TEMP 36.2–37.1; O2SAT 91–98; BMI 27.1; BMI 26.8
--- NOTE | 2018-12-02 | DI.ECHO.S_ITS ---
[facility] +---------+ : : [address] : [id number] [address] : : : : [id number] : : : : Phone: [phone]+ Echocardiogram Report + + :Name: GABRIELA LAWRENCE Study Date: 12/02/2018 Height: 62 in : :[facility] Weight: 148 lb : : Gender: Female BSA: 1.7 m2 : :: 1940 Age: 77 yrs BP: 164/63 mmHg: :Reason For Study: SOB : :Ordering Physician: Airam : :Nasima Chambers Performed By: Daysi Valentin : :Referring: Dr. Iggy Trujillo : + + Interpretation Summary The patient was in atrial fibrillation with heart rates between 55-63 bpm during the exam. Borderline concentric left ventricular hypertrophy with ejection fraction 60- 65%. Severely dilated left atrium. Moderately dilated right atrium. The bioprosthetic aortic valve is well-seated. Mild perivalvular aortic regurgitation. Moderate mitral annular calcification. Mild to moderate mitral regurgitation. Mild tricuspid regurgitation. The right ventricular systolic pressure is estimated to be at least 47 mmHg based on an estimated right atrial pressure of 3 mm Hg. Moderate pulmonary hypertension. Comparison is made with the echocardiogram of 07-23-18, there has been no significant change. Procedure: A two-dimensional transthoracic echocardiogram with color flow and Doppler was performed. The study quality was technically adequate. Comparison is made with the echocardiogram of 07-23-18. The patient was in atrial fibrillation with heart rates between 55-63 bpm during the exam. Left Ventricle: There is borderline concentric left ventricular hypertrophy. The ejection fraction is estimated to be 60-65%. There are no focal wall motion abnormalities. Diastolic function could not be accurately assessed due to atrial fibrillation. Right Ventricle: The right ventricle grossly appears normal in size with probable normal systolic function. Atria: The left atrium is severely dilated. The right atrium is moderately dilated. The interatrial septum is intact with no evidence for an atrial septal defect. Mitral Valve: The mitral valve leaflets appear mildly thickened, but open well. There is moderate mitral annular calcification. There is moderate calcification extending into the subvalvular apparatus. There is mild to moderate mitral regurgitation. Aortic Valve: There is a bioprosthetic aortic valve. The prosthetic aortic valve is well-seated. There is mild aortic regurgitation. Tricuspid Valve: The tricuspid valve leaflets are thin and pliable. There is mild tricuspid regurgitation. The right ventricular systolic pressure is estimated to be at least 47 mmHg based on an estimated right atrial pressure of 3 mm Hg. There is moderate pulmonary hypertension. Pulmonic Valve: The pulmonic valve is not well seen, but is grossly normal. There is mild to moderate pulmonic regurgitation. Great Vessels: The aortic root is normal size. The dimensions of the ascending aorta are normal. The aortic arch is normal in size. The IVC is of normal diameter and collapses greater than 50% with a sniff. This suggests a low right atrial pressure of 3 mm Hg. Pericardium/ Pleura There is no pericardial effusion. There is no pleural effusion. MMode/2D Measurements & Calculations LVIDd: 4.2 cm LVOT diam: 1.9 cm LVIDs: 2.2 cm Ao root diam: 2.4 cm FS: 47.0 % Aortic Jxn: 2.5 cm EPSS: 0.69 cm asc Aorta Diam: 3.2 cm IVSd: 1.0 cm Ao Arch Diam (Prox Trans): 2.8 cm LVPWd: 1.1 cm LV montemayor. diameter/BSA (cm/m^2): 2.5 LV sys. diameter/BSA (cm/m^2): 1.3 LA dimension: 3.5 cm RA long axis: 6.2 cm LA A2 area: 32.0 cm2 RA area: 24.0 cm2 LA A4 area: 31.7 cm2 RA vol: 78.3 ml LA length (vol): 7.6 cm RA : 46.6 ml/m2 LA vol: 112.8 ml IVC diam: 2.0 cm LA vol index: 67.1 ml/m2 RVDd major: 4.9 cm RVD1 (basal): 2.8 cm RVD2 (mid): 2.1 cm Doppler Measurements & Calculations Ao V2 max: 149.2 cm/sec LVOT Max Prabhu: 81.1 cm/sec Ao V2 mean: 87.6 cm/sec LV V1 max P.6 mmHg Ao max P.9 mmHg LV V1 VTI: 19.6 cm Ao mean P.9 mmHg BLAKE(I,D): 1.9 cm2 Ao V2 VTI: 30.6 cm BLAKE(V,D): 1.6 cm2 sev ratio: 0.64 BLAKE indexed to BSA (cm^2/m^2): 1.1 AI P1/2t: 832.0 msec AI dec slope: 125.5 cm/sec2 MV E max prabhu: 140.1 cm/sec TR max prabhu: 329.6 cm/sec MV A max prabhu: 29.2 cm/sec TR max P.5 mmHg MV E/A: 4.8 PA V2 max: 103.2 cm/sec MV dec time: 0.19 sec PA V2 mean: 58.7 cm/sec MV P1/2t: 58.1 msec PA mean P.6 mmHg PA Accel Time: 0.11 sec MV P1/2t max prabhu: 140.3 cm/sec SV(LVOT): 57.6 ml MVA(P1/2t): 3.8 cm2 Electronically signed by: Bruce Hutchinson on Reading Physician:12/02/2018 12:58 PM
[2018-12-02] MEDS: FUROSEMIDE 40 MG/4 ML VIAL IV ×3 (00:08→16:15)
--- NOTE | 2018-12-02 00:33 | ED_ITS ---
HPI - Chest Pain General Chief Complaint: Chest Pain Stated Complaint: valve replacement,SOB,swelling hands and feet Time Seen by Provider: 12/01/18 22:41 Source: patient and family Mode of arrival: ambulatory Limitations: no limitations History of Present Illness HPI narrative: 77F nonsmoker with cardiac history presents with 2 weeks of progressive lower extremity swelling, SOB, and weight gain of about 10 pounds. She is not dizzy, weak or lightheaded. She complains of exertional dyspnea and orthopnea. She denies any medication change or dietary change. She has had not N/V/D. She is under the care of cardiology at [facility]. She is due for her annual echo next week. Onset (ago): day(s) Duration: constant Associated symptoms: dyspnea Related Data Home Medications Medication Instructions Recorded Confirmed triamcinolone acetonide [Nasacort] 1 puff INTRANASAL QDAYP PRN #0 07/31/11 11/07/18 levothyroxine 0.112 mg PO QDAY #0 03/01/12 11/07/18 acetaminophen [Tylenol Extra 500 mg PO Q6HP PRN #0 12/28/12 11/07/18 Strength] diazepam [Valium] 5 mg PO Q8HP PRN #0 12/28/12 11/07/18 fluticasone propion-salmeterol 1 puff INH BID #0 12/28/12 11/07/18 [Advair Diskus] [ALAWAY 0.025%] 1 drp OPHTH BID #0 09/10/17 11/07/18 diltiazem HCl [Cardizem] 60 mg PO Q6HP PRN #0 09/10/17 11/07/18 diphenoxylate-atropine 1 tab PO Q6HP PRN #0 09/10/17 11/07/18 warfarin [Coumadin] 5 mg PO QDAY #0 09/10/17 11/07/18 Vitamin D3 1 tab PO DAILY 12/10/17 11/07/18 atorvastatin 80 mg PO BEDTIME 12/10/17 11/07/18 budesonide 9 mg PO QDAY 12/10/17 11/07/18 cetirizine [Zyrtec] 10 mg PO DAILY PRN 12/10/17 11/07/18 furosemide 40 mg PO DAILY 12/10/17 11/07/18 ketotifen fumarate [Alaway] 1 drp OPHTHALMIC (EYE) BID 12/10/17 11/07/18 levalbuterol tartrate [Xopenex HFA] 1 puff INHALATION Q4H PRN 12/10/17 11/07/18 nystatin 5 ml PO QID 12/10/17 11/07/18 potassium chloride 20 meq PO TID 12/10/17 11/07/18 warfarin 2 mg PO DIRECTED 12/10/17 11/07/18 Respironics [employer] Auto CPAP #1 ea 08/08/18 11/07/18 metoprolol succinate ER 50 mg 50 mg PO DAILY 08/09/18 11/07/18 tablet,extended release 24 hr clopidogrel 75 mg tablet 75 mg PO DAILY 11/07/18 11/07/18 mirtazapine 7.5 mg tablet 7.5 mg PO DAILY 11/07/18 11/07/18 ranitidine 150 mg tablet 150 mg PO DAILY 11/07/18 11/07/18 Allergies Allergy/AdvReac Type Severity Reaction Status Date / Time propoxyphene Allergy Unknown UPSET Unverified 11/07/18 14:33 STOMACH Sulfa (Sulfonamide Allergy Unknown Verified 12/01/18 22:59 Antibiotics) acetaminophen Allergy Verified 12/01/18 22:59 [From [facility]-N 100] azithromycin Allergy Difficulty Verified 12/01/18 22:59 Breathing aspirin AdvReac Mild CONTRAINDICATED Unverified 11/07/18 14:33 WITH WARFARIN pantoprazole AdvReac Gastrointestinal Verified 12/01/18 22:59 Upset trazodone AdvReac Depression Verified 12/01/18 22:59 Review of Systems Constitutional Denies chills, Denies fever(s), Denies lethargy and Denies weakness Eyes Denies change in vision, Denies eye discharge, Denies irritation and Denies loss of vision ENT Ears, Nose, Mouth, and Throat: Denies change in voice, Denies neck pain and Denies sore throat Cardiovascular Denies chest pain, Denies irregular heart rhythm, Reports leg edema, Denies lightheadedness, Denies palpitations, Reports dyspnea, Reports dyspnea on exertion and Reports orthopnea Respiratory Denies cough, Reports dyspnea, Reports dyspnea on exertion and Denies wheezing Gastrointestinal Gastrointestinal: Denies abdominal pain, Denies change in bowel habits, Denies diarrhea, Denies nausea and Denies vomiting Genitourinary Denies hematuria, Denies flank pain, Denies urinary incontinence and Denies urinary urgency Musculoskeletal Denies neck pain Integumentary/Breasts Denies pruritus, Denies erythema, Denies rash and Denies wounds Neurologic Denies confusion, Denies loss of vision and Denies weakness Psychiatric Denies anxiety, Denies confusion, Denies depression, Denies homicidal ideation and Denies suicidal ideation Endocrine Denies palpitations Hematologic/Lymphatic Denies easy bruising Allergic/Immunologic Denies wheezing [facility] Medical History Obstructive sleep apnea of adult (Chronic) Colitis (Acute) Acute chest pain (Acute) Laceration (Inactive) Surgical History H/O prosthetic aortic valve replacement (Acute) Social History (Updated 11/07/18 @ 16:07 by LYN Hughes) marital status: details: to Alena, lives in [place] household members: spouse lives independently: Yes caregiver/support person: No housing: house Smoking Status: Never smoker Social History marital status: details: to Alena, lives in [place] household members: spouse lives independently: Yes caregiver/support person: No housing: house Smoking Status: Never smoker Exam Narrative Exam Narrative: GENERAL: Pleasant 77-year-old female appears stated age, in mild distress HEAD: Atraumatic. Normocephalic. No temporal or scalp tenderness. EYES: Pupils equal round and reactive. Extraocular motions intact. No scleral icterus. No injection or drainage. ENT: Nose without bleeding, purulent drainage or septal hematoma. Throat without erythema, tonsillar hypertrophy or exudate. Uvula midline. Airway patent. NECK: Trachea midline. No JVD or lymphadenopathy. Supple, nontender, no meningeal signs. CARDIOVASCULAR: Regular rate and rhythm without murmurs, gallops, or rubs. RESPIRATORY: Faint crackles in bilateral bases GASTROINTESTINAL: Abdomen soft, non-tender, nondistended. No hepato- splenomegaly, or palpable masses. No guarding. EXTREMITIES: 2+ pitting edema in bilateral lower extremities BACK: Nontender without deformity or crepitance. No flank tenderness. NEURO: AOx3. SKIN: No rash or erythema. Initial Vital Signs Initial Vital Signs: Vital Signs Temperature 97.7 F 12/01/18 22:53 Pulse Rate 57 L 12/01/18 22:53 Respiratory Rate 20 12/01/18 22:53 Blood Pressure 173/91 H 12/01/18 22:53 Pulse Oximetry 100 12/01/18 22:53 Course Orders Ordered: ED Orders 12/01/18 22:53 XR chest 1V Stat 12/01/18 23:15 B Type Natriuretic Peptide Stat Complete Blood Count AUTO DIFF Stat Comprehensive Metabolic Panel Stat Lipase Stat Troponin & CK Cardiac Panel Stat Discontinued Medications Furosemide (Lasix) 40 mg IV NOW ONE Stop: 12/01/18 23:48 Last Admin: 12/02/18 00:08 Dose: 40 mg Consultations Consultation #1: call to Dr. Fan (cardiology at [facility]) whom recommends admitting patient here, continuing to diuresis, working on BP and obtaining echo. Vital Signs - 8 hr 12/01/18 22:53 12/02/18 00:56 12/02/18 01:35 Temperature 97.7 F Pulse Rate 57 L 71 60 Respiratory Rate 20 15 15 Blood Pressure 173/91 H Blood Pressure [Right Arm] 145/104 H 151/80 H Pulse Oximetry 100 97 98 12/02/18 02:18 Temperature Pulse Rate 70 Respiratory Rate 19 Blood Pressure Blood Pressure [Right Arm] 142/94 H Pulse Oximetry 98 MDM - Chest Pain Lab Data Result diagrams: 12/01/18 23:15 12/01/18 23:15 Lab Results 12/01/18 12/01/18 Range/Units 23:15 23:15 WBC 8.4 (4.5-11.0) X10^3/uL RBC 4.83 (4.0-5.2) X10^6/uL Hgb 12.6 (12.0-16.0) g/dL Hct 38.8 (36-46) % MCV 80.3 (80-100) fL MCH 26.1 (26-34) PG MCHC 32.5 (30-36) % RDW 17.4 H (11.6-14.8) % Plt Count 279 (150-400) X10^3/uL Neut % (Auto) 66.4 (50-75) % Lymph % (Auto) 21.6 L (25-40) % Rich % (Auto) 9.4 (3-14) % Eos % (Auto) 2.0 (2-4) % Baso % (Auto) 0.6 (0-2) % Neut # (Auto) 5600 (6090-2003) /uL Lymph # (Auto) 1800 (8518-9732) /uL Rich # (Auto) 800 (0-900) /uL Eos # (Auto) 200 (0-450) /uL Baso # (Auto) 100 (0-100) /uL Sodium 137 (137-145) mmol/L Potassium 3.8 (3.4-5.1) mmol/L Chloride 98 (98-107) mmol/L Carbon Dioxide 34 H (22-32) mmol/L BUN 21 H (7-17) mg/dL Creatinine 0.70 (0.52-1.04) mg/dL Estimated GFR > 60.0 (>60) mL/min BUN/Creatinine Ratio 30.0 H (6-22) Glucose 89 (80-110) mg/dL Calcium 8.8 (8.4-10.2) mg/dL Total Bilirubin 0.7 (0.2-1.3) mg/dL AST 48 H (14-36) IU/L ALT 51 (9-52) IU/L Alkaline Phosphatase 107 (38-126) U/L Total Creatine Kinase 28 L (30-135) U/L CK-MB (CK-2) TNP CK-MB (CK-2) Rel Index TNP Troponin I < 0.012 (0.01-0.034) ng/mL B-Natriuretic Peptide 452 H (<100) Total Protein 6.5 (6.3-8.2) g/dL Albumin 3.7 (3.5-5.0) g/dL Globulin 2.8 (1.7-4.1) g/dL Albumin/Globulin Ratio 1.3 (1.0-2.8) Lipase 253 (23-300) U/L Urine Dip Bedside Urine Glucose Negative Bedside Urine Bilirubin - Negative Bedside Urine Ketone - Negative Urine Specific [place] 1.015 Bedside Urine Occult Blood - Negative Bedside Urine pH 6.0 Bedside Urine Protein - Negative Bedside Urine Urobilinogen - Negative Bedside Urine Nitrite - Negative Bedside Urine Leukocytes - Negative Esterase Imaging Data Chest x-ray: Attestation: I personally reviewed and interpreted this imaging study as follows: My impression: CHF MDM Narrative Medical decision making narrative: 77F with CAD s/p coronary stent x2 and TAVR presents with classic complaints of AECHF as evidenced by orthopnea, exertional dyspnea, lower extremity edema and weight gain. She has no increased oxygne requirements at rest but has a clear change in her clinical picture with no obvious etiology. Cardiology strongly recommends admission here with further evaluation and diuresis. Discharge Plan Departure Patient Disposition: Admitted as Observation Clinical Impression: Acute CHF Qualifiers: Heart failure type: unspecified Qualified Code(s): I50.9 - Heart failure, unspecified
--- NOTE | 2018-12-02 03:39 | PM.HP.1 ---
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 Patient also has associated complaint of abdominal distention with history of IBS making it difficult to take deep breaths further impacting her complaint of orthopnea. She Has been under cardiology surveillance and has just finished cardiac rehab. She is due for repeat echo in 1 week. She denies complaints of recent colder illness with no headaches or dizziness, nasal congestion or sore throat. She has had no chest pain or palpitations and denies cough. She reports no nausea vomiting but will take Zantac for heartburn as needed. She has history of irritable bowel syndrome and routinely uses daily Imodium. She reports no blood per rectum. She denies dysuria. Upon arrival in the ER the patient is afebrile with temperature of 97.7?, heart rate of 57, blood pressure 173/91, respirations 20 saturating at 100% on room air. Twelve lead EKGs obtained which demonstrates atrial fibrillation with a slow ventricular response at [address] or T-wave changes. Chest x-rays taken revealing pulmonary vascular congestion. CBC is found to be within normal limits as are her electrolytes. Her BUN is 21 and creatinine is 0.7 with a nonfasting glucose of 89. The patient is on warfarin therapy in a varying dose is found to be supratherapeutic at 6.7. Patient has a low total CK at 25 with a troponin of less than 0.012 and a BNP elevated at 0 452. In the ER she received Lasix 40 mg IV following consult with cardiology who requests the patient be admitted diuresed and received an echocardiogram. Patient History Medical History Obstructive sleep apnea of adult (Chronic) Colitis (Acute) Acute chest pain (Acute) Anti-phospholipid syndrome (Acute) Asthma (Acute) Chronic atrial fibrillation (Acute) Current use of termite control technician anticoagulation (Acute) History of hysterectomy (Acute) IBS (irritable bowel syndrome) (Acute) Laceration (Inactive) Surgical History H/O prosthetic aortic valve replacement (Acute) History of cholecystectomy (Acute) History of coronary artery stent placement (Acute) History of ear surgery (Acute) History of mandibular surgery (Acute) History of sinus surgery (Acute) Social History marital status: details: to Alena, lives in [place] household members: spouse lives independently: Yes caregiver/support person: No housing: house Smoking Status: Never smoker Family & Social History Social History: household members spouse lives independently Yes caregiver/support person No Safety & Behavioral: Feels Safe in Current Yes Environment Tobacco & Substance use: Smoking Status Never smoker alcohol intake frequency 0-2 drinks per day Substance Use Type does not use Comment: The patient lives at home with her to whom she has been for 50 years. Her parents are both with her father from Hodgkin's of unknown type in her mother from ovarian cancer. She has 3 siblings all of whom have hypertension and once younger sister who has alcohol abuse. She has had 3 boys all of whom are in good health. Smoking: Never smoked Alcohol: Has never used alcohol Substance use: Denies recreational pharmaceuticals herbal or cannabis products. Advanced directives. The patient has advanced directives indicating her desire for no long-term life support on file with her physician and the hospital. Direct conversation with the patient at this time she wishes to be FULL CODE and designates her to be her surrogate decision maker. Meds Home Medications Medication Instructions Recorded Confirmed Type triamcinolone acetonide [Nasacort] 1 puff INTRANASAL QDAYP PRN #0 07/31/11 12/02/18 History levothyroxine 0.1 mg PO QDAY #0 03/01/12 12/02/18 History acetaminophen [Tylenol Extra 500 mg PO Q6HP PRN #0 12/28/12 11/07/18 History Strength] diazepam [Valium] 5 mg PO Q8HP PRN #0 12/28/12 12/02/18 History fluticasone propion-salmeterol 1 puff INH BID #0 12/28/12 11/07/18 History [Advair Diskus] [ALAWAY 0.025%] 1 drp OPHTH BID #0 09/10/17 11/07/18 History diphenoxylate-atropine 1 tab PO Q6HP PRN #0 09/10/17 11/07/18 History warfarin [Coumadin] 5 mg PO QDAY #0 09/10/17 11/07/18 History Vitamin D3 1 tab PO DAILY 12/10/17 11/07/18 History atorvastatin 80 mg PO BEDTIME 12/10/17 12/02/18 History budesonide 9 mg PO QDAY 12/10/17 12/02/18 History cetirizine [Zyrtec] 10 mg PO DAILY PRN 12/10/17 11/07/18 History furosemide 40 mg PO DAILY 12/10/17 12/02/18 History ketotifen fumarate [Alaway] 1 drp OPHTHALMIC (EYE) BID 12/10/17 11/07/18 History levalbuterol tartrate [Xopenex HFA] 1 puff INHALATION Q4H PRN 12/10/17 11/07/18 History nystatin 5 ml PO QID 12/10/17 11/07/18 History warfarin 2 mg PO DIRECTED 12/10/17 11/07/18 History Respironics [employer] Auto CPAP #1 ea 08/08/18 11/07/18 History metoprolol succinate ER 50 mg 50 mg PO DAILY 08/09/18 12/02/18 History tablet,extended release 24 hr clopidogrel 75 mg tablet 75 mg PO DAILY 11/07/18 12/02/18 History mirtazapine 7.5 mg tablet 7.5 mg PO DAILY 11/07/18 12/02/18 History ranitidine 150 mg tablet 150 mg PO DAILY 11/07/18 11/07/18 History diphenoxylate-atropine [Lomotil] 1 tab PO Q6-8H PRN 12/02/18 12/02/18 History nitroglycerin 0.6 mg SUBLINGUAL Q5-15M PRN 12/02/18 12/02/18 History potassium chloride 20 meq PO DAILY 12/02/18 12/02/18 History Allergies Allergy/AdvReac Type Severity Reaction Status Date / Time propoxyphene Allergy Severe UPSET Verified 06/03/19 04:06 STOMACH Sulfa (Sulfonamide Allergy Mild Verified 12/02/18 04:07 Antibiotics) acetaminophen Allergy Verified 12/01/18 22:59 [From Darvocet-N 100] azithromycin Allergy Difficulty Verified 12/01/18 22:59 Breathing aspirin AdvReac Mild CONTRAINDICATED Unverified 11/07/18 14:33 WITH WARFARIN pantoprazole AdvReac Gastrointestinal Verified 12/01/18 22:59 Upset trazodone AdvReac Depression Verified 12/01/18 22:59 Exam Vital Signs (past 8 hours): - 12/01/18 22:53 12/02/18 00:56 12/02/18 01:35 Temperature 97.7 F Pulse Rate 57 L 71 60 Respiratory Rate 20 15 15 Blood Pressure 173/91 H Blood Pressure [Right Arm] 145/104 H 151/80 H Pulse Oximetry 100 97 98 12/02/18 02:18 Temperature Pulse Rate 70 Respiratory Rate 19 Blood Pressure Blood Pressure [Right Arm] 142/94 H Pulse Oximetry 98 Oxygen Delivery Method Room Air Narrative Exam Narrative: GENERAL APPEARANCE: well developed, well nourished, in no acute distress. HEAD: Normocephalic, atraumatic, no scalp lesions. EYES: pupils equal, round, reactive to light and accommodation, sclera non-icteric, extraocular movement intact without nystagmus. EARS: normal external structures, no ear pain NOSE: sinuses non tender to percussion, no rhinorrhea ORAL CAVITY: mucosa moist without lesions or exudate, palate normal, tongue in midline. THROAT: normal, no erythema, no exudate, pharynx normal, uvula midline. NECK/THYROID: neck supple, no jugular venous distention, no carotid bruit, no thyromegaly, trachea midline. LYMPH NODES: no cervical or supraclavicular lymphadenopathy. SKIN: warm and dry, no suspicious lesions, no rashes, good turgor. HEART: regular rate and rhythm, S1-S2 1/6 systolic murmur, no rubs or gallops, brisk capillary refill, 2+ pitting edema to the level of the knee. LUNGS: Lungs with bibasilar crackles, no coarseness or wheezing, no cough present CHEST: Symmetrical movement, good tidal volume, no accessory muscle use, no pain to AP and lateral compression. ABDOMEN: Soft, distended, tympanitic to percussion, no epigastric or abdominal tenderness on palpation, no guarding or peritoneal signs, no organomegaly, no flank tenderness, active bowel tones. BACK: Normal curvature, nontender to palpation, no CVA tenderness on percussion EXTREMITIES: Pain with movement of right hip moves all extremities, strength is 5/5 and symmetrical NEUROLOGIC: AAO x4, no focal neurologic deficits, cranial nerves II-XII grossly intact , motor strength normal upper and lower extremities, sensory exam intact to light touch, hearing grossly normal to speech. PSYCH: alert, cognitive function intact, good eye contact, stable mood with congruent affect Objective Labs Result Diagrams: 12/01/18 23:15 12/01/18 23:15 Labs: Laboratory Results - last 24 hr 12/01/18 12/01/18 23:15 23:15 WBC 8.4 RBC 4.83 Hgb 12.6 Hct 38.8 MCV 80.3 MCH 26.1 MCHC 32.5 RDW 17.4 H Plt Count 279 Neut % (Auto) 66.4 Lymph % (Auto) 21.6 L [place] % (Auto) 9.4 Eos % (Auto) 2.0 Baso % (Auto) 0.6 Neut # (Auto) 5600 Lymph # (Auto) 1800 [place] # (Auto) 800 Eos # (Auto) 200 Baso # (Auto) 100 Sodium 137 Potassium 3.8 Chloride 98 Carbon Dioxide 34 H BUN 21 H Creatinine 0.70 Estimated GFR > 60.0 BUN/Creatinine Ratio 30.0 H Glucose 89 Calcium 8.8 Total Bilirubin 0.7 AST 48 H ALT 51 Alkaline Phosphatase 107 Total Creatine Kinase 28 L CK-MB (CK-2) TNP CK-MB (CK-2) Rel Index TNP Troponin I < 0.012 B-Natriuretic Peptide 452 H Total Protein 6.5 Albumin 3.7 Globulin 2.8 Albumin/Globulin Ratio 1.3 Lipase 253 Assessment & Plan Assessment & Plan narrative: The patient is admitted to the hospital following consult with cardiology requesting diuresis and echocardiogram for acute exacerbation of CHF. 1. Acute exacerbation CHF, present on admission -the patient complaints of increasing dyspnea for 2 weeks with associated symptomatology of dyspnea on exertion, leg swelling, weight gain of 10 lb. -she has had no complaints of chest pain or palpitations though she is in chronic atrial fibrillation validated on 12 lead EKG with a ventricular rate of 59. -the patient has a BNP elevated at 452 with a negative total CK at 25 and troponin of less than 0.012. -patient received 40 mg of Lasix in the ER is not in extremis and demonstrates no significant shortness of breath and is freely conversant with no cough. -Lasix 40 mg twice daily at 9:00 a.m. and 3:00 p.m. -potassium level is 3.8, potassium supplementation is increased to 20 mEq twice daily. -will obtain echocardiogram. 2. Acute supratherapeutic INR, present on admission. -patient with history of atrial fibrillation and anti phospholipid syndrome, patient states she has been taking 1/2 tablet of 5 mg warfarin daily. -INR is 6.7 without evidence of untoward bleeding or bruising. -She states that she drank minerva juice yesterday which she feels is complex at with her elevated INR. -patient is status post stenting in October, continue Plavix 75 mg daily. -will hold warfarin and recheck INR at 3:00 p.m.. 3. Acute Right hip pain, present on admission. -result of an injury, patient states pulled muscle. -hip pain has been evaluated by primary care and the patient has been prescribed Soma 350 mg 3 which is continued 3 times daily as needed for pain. -physical therapy to evaluate and treat 4. Chronic atrial fibrillation, stable. -EKG reveals atrial fibrillation with a ventricular rate of 59 with vital signs revealing rate variable from 60s to 70s. -no complaints of chest pain or palpitations. -continue metoprolol succinate 50 mg daily. 5. Chronic asthma, stable -continue patient's home medication of Advair twice daily. 6. Chronic obstructive sleep apnea, stable. -respiratory therapy to consult -patient will use her own CPAP. 7. Chronic irritable bowel syndrome, stable. -continue patient's home regimen of Imodium once daily. 8. Acquired hypothyroidism, presumed stable. -continue home medication of levothyroxine 112 mcg daily. The patient is admitted to the hospital for severity of symptoms and ongoing need for medication and monitoring due to risk of adverse events. The patient is admitted as observation with expected length of stay to be less than 2 midnights. Time Spent With Patient Time with patient: 25 - 35 minutes
[2018-12-02] MEDS: CARISOPRODOL 350 MG TABLET PO ×2 (04:30→11:46)
--- NOTE | 2018-12-02 04:49 | PC.NURSE ---
Admitted from the ER accompanied by her spouse. Ambulated to the BR. with SBA + FWW, C/O Rt. hip & lower back pain. Reported takes muscle relaxant @ home. 350 mg. of Soma admin. Pt. states I can't swallow big pills, I have narrow esophagus. Cut pill in half & took pill with a carrier, gave pill with yogurt. Pt. oriented to her room showed how to use her call light, TV & bed controls. Reminded not to get up OOB without any assistance. Call light w/in reached & instructed to call with any needs. Will cont. POC & monitor.
[2018-12-02 05:28] LABS: Cholesterol 167 mg/dL (140-199); HDL Cholesterol 63 mg/dL (40-60); LDL Cholesterol Calculated 76 mg/dL (<100); Triglycerides 141 mg/dL (35-150)
[2018-12-02 05:32] LABS: Blood Urea Nitrogen 18 mg/dL (7-17); Carbon Dioxide 37 mmol/L (22-32); Chloride 99 mmol/L (98-107); Estimated Glomerular Filt Rate > 60.0 mL/min (>60); Glucose 94 mg/dL (80-110); HEMOLYSIS < 15 (0-50); Magnesium 1.9 mg/dL (1.6-2.3); Potassium 2.9 mmol/L (3.4-5.1); Sodium 142 mmol/L (137-145)
[2018-12-02] MEDS: POTASSIUM CHLORIDE 60 MEQ in SODIUM CHLORIDE 0.9% 500 ML 88.333 ML IV (06:36)
[2018-12-02] MEDS: SODIUM CHLORIDE 0.9% FLUSH 10 ML IV ×2 (06:38→19:11)
--- NOTE | 2018-12-02 07:26 | PC.NURSE ---
0635 FREIGHT BREAKER notified with low potassium, 60 meq potassium IVPB admin. & verified with Jessica ALLAN.
[2018-12-02] MEDS: LEVOTHYROXINE 100 MCG TABLET PO (08:11)
[2018-12-02] MEDS: FLUTICASONE/SALMETEROL 250/50 14 PUFF DISKUS INH ×2 (08:44→19:11)
[2018-12-02] MEDS: POTASSIUM CHLORIDE 20 MEQ/15 ML UDC PO (08:50)
[2018-12-02] MEDS: BUDESONIDE 3 MG CAP 9 MG PO (08:51)
[2018-12-02] MEDS: CLOPIDOGREL 75 MG TABLET PO (08:51)
[2018-12-02] MEDS: METOPROLOL ER 50 MG TABLET PO (08:52)
--- NOTE | 2018-12-02 08:57 | CM.DANOTE ---
DCP: Case received, EMR reviewed and met with patient. Introduced self and role. Baseline history received from patient. DCP template assessment completed with information currently available. Patient is a 77 year old female who admitted early this morning to the care of the hospitalist team. PCP: Dr. Trujillo. Payer: confirmed: Medicare/[facility]. Patient came to hospital via family vehicle due to symptoms of increased shortness of breath, and increased swelling in upper and lower extremities. Patient has history of CHF, and had an aortic valve replacement last year at [facility]. Met with patient. Alert and oriented, pleasant. She is independent at home. She is under the care of her deposit refund clerk at [facility]. Patient resides here in [place] with her spouse, Alena. She will be having an echo-cardiogram today. She stated that she was supposed to have one in the next few weeks, per her deposit refund clerk. P: DCP to follow closely. Patient should be able to return home when she is medically stable. Laurence Hall RN/Cocktail Waitress
[2018-12-02] MEDS: HYDROCODONE/ACET 5/325 TABLET 1 TAB PO (09:03)
--- NOTE | 2018-12-02 10:50 | PC.NURSE ---
Day shift: Pt complains of pain in rt hip. Echo today. Pt also c/o discomfort in left AC IV. IV location changed to left FA and Pt still c/o discomfort. K+ rider infusing per AUG. Wrapped that arm in warm blanket but Pt stated that it did not help.
--- NOTE | 2018-12-02 11:03 | PT.IPTN ---
Physical Therapy Treatment Note Notes Pt currently getting an echo. Will check back later in the day.
[2018-12-02 15:05] LABS: BUN Creatinine Ratio 24.3 (6-22); Blood Urea Nitrogen 17 mg/dL (7-17); Calcium 8.4 mg/dL (8.4-10.2); Carbon Dioxide 34 mmol/L (22-32); Chloride 101 mmol/L (98-107); Estimated Glomerular Filt Rate > 60.0 mL/min (>60); Glucose 110 mg/dL (80-110); HEMOLYSIS < 15 (0-50); Magnesium 1.9 mg/dL (1.6-2.3); Potassium 4.2 mmol/L (3.4-5.1); Sodium 140 mmol/L (137-145)
--- NOTE | 2018-12-02 15:21 | PM.PN.1 ---
Subjective Date Patient Seen: 12/02/18 Exam Vital Signs (past 8 hours): - 12/02/18 11:00 12/02/18 16:00 Temperature 98.7 F 97.6 F Pulse Rate 59 L 56 L Respiratory Rate 15 18 Blood Pressure 107/65 134/67 Pulse Oximetry 91 97 Oxygen Delivery Method Room Air Oxygen Flow Rate 0 Objective Labs Result Diagrams: 12/01/18 23:15 12/02/18 14:25 Labs: Laboratory Results - last 24 hr 12/01/18 12/01/18 12/02/18 23:15 23:15 04:49 WBC 8.4 RBC 4.83 Hgb 12.6 Hct 38.8 MCV 80.3 MCH 26.1 MCHC 32.5 RDW 17.4 H Plt Count 279 Neut % (Auto) 66.4 Lymph % (Auto) 21.6 L [place] % (Auto) 9.4 Eos % (Auto) 2.0 Baso % (Auto) 0.6 Neut # (Auto) 5600 Lymph # (Auto) 1800 [place] # (Auto) 800 Eos # (Auto) 200 Baso # (Auto) 100 PT INR Sodium 137 142 Potassium 3.8 2.9 L Chloride 98 99 Carbon Dioxide 34 H 37 H BUN 21 H 18 H Creatinine 0.70 0.60 Estimated GFR > 60.0 > 60.0 BUN/Creatinine Ratio 30.0 H 30.0 H Glucose 89 94 Calcium 8.8 9.0 Magnesium 1.9 Total Bilirubin 0.7 AST 48 H ALT 51 Alkaline Phosphatase 107 Total Creatine Kinase 28 L CK-MB (CK-2) TNP CK-MB (CK-2) Rel Index TNP Troponin I < 0.012 B-Natriuretic Peptide 452 H Total Protein 6.5 Albumin 3.7 Globulin 2.8 Albumin/Globulin Ratio 1.3 Triglycerides Cholesterol LDL Cholesterol, Calc HDL Cholesterol Lipase 253 12/02/18 12/02/18 12/02/18 04:49 14:25 14:25 WBC RBC Hgb Hct MCV MCH MCHC RDW Plt Count Neut % (Auto) Lymph % (Auto) [place] % (Auto) Eos % (Auto) Baso % (Auto) Neut # (Auto) Lymph # (Auto) [place] # (Auto) Eos # (Auto) Baso # (Auto) PT INR Sodium 140 Potassium 4.2 D Chloride 101 Carbon Dioxide 34 H BUN 17 Creatinine 0.70 Estimated GFR > 60.0 BUN/Creatinine Ratio 24.3 H Glucose 110 Calcium 8.4 Magnesium 1.9 Total Bilirubin AST ALT Alkaline Phosphatase Total Creatine Kinase CK-MB (CK-2) CK-MB (CK-2) Rel Index Troponin I B-Natriuretic Peptide Total Protein Albumin Globulin Albumin/Globulin Ratio Triglycerides 141 Cholesterol 167 LDL Cholesterol, Calc 76 HDL Cholesterol 63 H Lipase 12/02/18 12/02/18 14:25 15:10 WBC RBC Hgb Hct MCV MCH MCHC RDW Plt Count Neut % (Auto) Lymph % (Auto) [place] % (Auto) Eos % (Auto) Baso % (Auto) Neut # (Auto) Lymph # (Auto) [place] # (Auto) Eos # (Auto) Baso # (Auto) PT 34.1 H INR 2.9 H Sodium Potassium Chloride Carbon Dioxide BUN Creatinine Estimated GFR BUN/Creatinine Ratio Glucose Calcium Magnesium Total Bilirubin AST ALT Alkaline Phosphatase Total Creatine Kinase CK-MB (CK-2) CK-MB (CK-2) Rel Index Troponin I < 0.012 B-Natriuretic Peptide Total Protein Albumin Globulin Albumin/Globulin Ratio Triglycerides Cholesterol LDL Cholesterol, Calc HDL Cholesterol Lipase Assessment & Plan Assessment & Plan narrative: Brief progress note: Patient seen and examined. Physical exam unchanged. Agree with admitting providers assessment and plan other than patient is not supratherapeutic with INR which is 2.9 and will continue patient's home regimen of warfarin 3 mg daily. Discussed CHF in detail with the patient and her and provided education. Discussed patient with her military professional who agrees with plan and recommends placing the patient on furosemide 60 mg daily at time of discharge. Repleted electrolytes and repeated BMP which demonstrates electrolytes within normal limits. In regard to right-sided lumbar spine and hip pain ordered CT lumbar spine and pelvis, pending. Discontinued Soma as patient did not get any relief since starting this medication outpatient. Started lidocaine patch, cyclobenzaprine 10 mg 3 times daily as needed for muscle spasm and hydrocodone 2.5 mg every 6 hours as needed for pain. Could consider prednisone burst if there is acute pathology of lumbar spine or hip to help with pain. Also would consider orthopedic consultation for further input in management of L1 compression fracture if present. Quality VTE Deep Vein Thrombosis/Pulmonary Embolism Present on Admission: No
--- NOTE | 2018-12-02 15:21 | DI.CT.S_ITS ---
PROCEDURE: CT LUMBAR SPINE WO CON INDICATIONS: poss lumbar compression fracture, SI joint pain TECHNIQUE: Noncontrast 3 mm thick sections acquired from the T12 level to the sacrum. Sagittal and coronal reformats were constructed. For radiation dose reduction, the following was used: automated exposure control. COMPARISON: [facility], CT, CT PEL WO CON, 12/02/2018, 15:36. [facility], CT, PE STUDY (CTA CHEST), 09/10/2017, 14:12. [facility], CR, XR LUMBAR SPINE 2-3V, 11/28/2018, 12:28. FINDINGS: Image quality: Excellent. Bones: There is normal bony alignment. There is mild compression deformity of L1 involving the inferior endplate, consistent with fracture, uncertain chronicity. No suspicious lytic or blastic bony lesions. Central spinal caliber is of normal overall caliber. No pars defects. T12-L1: Preserved disc height. There is posterior disc bulge. Moderate bilateral facet arthropathy. The central canal is patent. No foraminal stenosis. L1-L2: Preserved disc height. There is vacuum phenomenon in the intervertebral disc space. Moderate posterior disc bulge and disc osteophyte complex. [id number] bilateral facet arthropathy. The central canal is moderately narrowed. No foraminal stenosis. L2-L3: Mild loss of disc height. There is moderate posterior disc bulge. Moderate bilateral facet arthropathy. The central canal is moderately narrowed. No foraminal stenosis. L3-L4: Moderate loss of disc height and a vacuum phenomenon. There is moderate posterior disc bulge. Moderate bilateral facet arthropathy. The central canal is severely narrowed. Moderate left and mild right foraminal stenosis. L4-L5: [id number]-kvrkllzv loss of disc height and a vacuum phenomenon. There is moderate posterior disc bulge. Moderate bilateral facet arthropathy. The central canal is moderately narrowed. Moderate bilateral foraminal stenosis. L5-S1: Severe loss of disc height and a vacuum phenomenon. There is moderate posterior disc bulge. Moderate bilateral facet arthropathy. The central canal is mildly narrowed. Moderate bilateral foraminal stenosis. Soft tissues: No retroperitoneal masses or hematomas. Visualized aorta is normal in caliber. There is moderate atherosclerotic changes in aorta and iliac arteries. IMPRESSION: 1. Mild compression fracture of L1 of uncertain chronicity. 2. Multilevel degenerative disc disease and facet arthropathy as described. 3. Multilevel central canal stenosis as described. 4. Multilevel foraminal stenosis as described. 5. MRI may be helpful to better assess acuity of L1 fracture and better characterize central canal and foramina stenosis. Dictated by: Prisca Oliveira M.D. on 12/02/2018 at 16:09 Approved by: Prisca Oliveira M.D. on 12/02/2018 at 16:26
--- NOTE | 2018-12-02 15:22 | DI.CT.S_ITS ---
PROCEDURE: CT PEL WO CON INDICATIONS: poss hairline pelvic fx? TECHNIQUE: Noncontrast 3 mm axial sections acquired through the bony pelvis, with coronal and sagittal reformatting. COMPARISON: [facility], CT, ABDOMEN/PELVIS WITH CONTRAST, 05/19/2015, 2:23. [facility], CR, XR LUMBAR SPINE 2-3V, 11/28/2018, 12:28. [facility], CT, CT LUMBAR SPINE WO CON, 12/02/2018, 15:31. FINDINGS: Image quality: Excellent. Bones: No fracture or dislocation. There is mild symmetric hip joint degeneration. The sacroiliac joints are normal without ankylosis. Degenerative disc and facet disease noted in the lower lumbar spine. Soft tissues: No soft tissue mass or hematoma. There is moderate atherosclerosis in the distal aorta and common arteries. IMPRESSION: 1. No fracture or dislocation. 2. Mild symmetric hip joint degeneration bilaterally. 3. Degenerative disc and facet disease in the lower lumbar spine. Please see separate CT lumbar spine report. 4. Moderate atherosclerosis. Dictated by: Prisca Oliveira M.D. on 12/02/2018 at 16:26 Approved by: Prisca Oliveira M.D. on 12/02/2018 at 16:38
--- NOTE | 2018-12-02 16:07 | PT.IIE ---
Surgical History (Last Reviewed 12/02/18 @ 04:00 by LYN Jade) H/O prosthetic aortic valve replacement (Acute) History of cholecystectomy (Acute) History of coronary artery stent placement (Acute) History of ear surgery (Acute) History of mandibular surgery (Acute) History of sinus surgery (Acute) Medical History (Last Reviewed 12/02/18 @ 04:00 by LYN Jade) Obstructive sleep apnea of adult (Chronic) Colitis (Acute) Acute chest pain (Acute) Anti-phospholipid syndrome (Acute) Asthma (Acute) Chronic atrial fibrillation (Acute) Current use of oysterman anticoagulation (Acute) History of hysterectomy (Acute) IBS (irritable bowel syndrome) (Acute) Laceration (Inactive) Physical Therapy Inpatient Evaluation/Re-Eval M1 PT/OT-IP Prior Functional Status Start: 12/02/18 08:54 Freq: NEEDED Status: Active Protocol: Document 12/02/18 15:53 RS (Rec: 12/02/18 16:07 RS [id number]) Medical Review Prior Functional Status Medical History Reviewed Yes Diet/Fluid Consistency Regular Communication no known deficits Mobility and Gait ind without device but does own a FWW Activities of Daily Living and IADL's ind Prior Functional Level (Other details) recently finished cardiac rehab program here at Social History Household Members spouse Living Arrangements House Number of Floors (Floors) Two Floors Number of Stairs To Enter/Railing? 1STE through garage, no rail Home Equipment Front Wheel Walker Employment Status Retired Additional Social History Comment home is mostly all on one floor, pt does have a basement where the extra freezer and treadmill are located M2 PT-IP Current Condition Start: 12/02/18 08:54 Freq: NEEDED Status: Active Protocol: Document 12/02/18 15:40 RS (Rec: 12/02/18 15:42 RS [id number]) Physical Therapy Current Condition Current Condition Evaluation Date 12/02/18 Treatment Diagnosis impaired mobility Onset Date 11/30/18 M3 PT-IP Subjective Start: 12/02/18 08:54 Freq: NEEDED Status: Active Protocol: Document 12/02/18 15:53 RS (Rec: 12/02/18 16:07 RS [id number]) Subjective Physical Therapy Visit Type Type Initial Evaluation Visit Start Time 15:00 Visit Stop Time 16:00 Total Visit Minutes 60 Physical Therapy Visit Comments Patient Comments Pt reports R hip pain started suddenly and that it's always present but can't give much more information than that. When asked to show this automatic typewriter inspector where the pain is located pt shows a large area over R lumbar spine into posterolateral R hip. Patient Goals less pain, go home Therapy Pain Assessment Pain When Pain Assessed At Rest Pain Present Pain Present Pain Reported Location Chest Description Aching Shooting Pain Behaviors Facial Grimacing Holding Area Wincing Pain Management Techniques Modification of Treatment Re-positioning Timing of Activity with Medications M4 PT-IP Mobility and Gait Start: 12/02/18 08:54 Freq: NEEDED Status: Active Protocol: Document 12/02/18 15:53 RS (Rec: 12/02/18 16:07 RS [id number]) PT-Bed Mobility Assessment Rolling Type of Rolling Log Rolling Roll to Right Level of Assist Standby Assistance Supine to Sit Supine to Sit Standby Assistance Sit to Supine Sit to Supine Standby Assistance Scooting Scooting to Edge of Bed Standby Assistance Scooting Up and Down in Bed Standby Assistance PT-Transfer Assessment Sit to and From Stand Sit to and from Stand Standby Assistance Equipment Transfer Assistive Device Front Wheeled Walker Transfers Transfer Destination Bed Wheelchair Transfer Technique walked Transfer Ability Level of Assist Standby Assistance Comments Mobility Comments Pt able to complete all bed mobility and transfers with SBA only, pt was quite painful and needed to move slowly but was very steady without any LOB. Pt even complete last transfer from WC to bed without an AD without any LOB but was visibly more painful without the FWW. Gait Assessment Gait Gait Assistance Required: Standby Assistance Distance (Feet) 40 Assistive Devices Assistive Device Gait Belt Front Wheeled Walker Gait Deviations General Gait Pattern Antalgic Decreased Stride Length Flexed Trunk Factors Limiting Gait Function Factors Limiting Gait Function Pain Comments Gait Comments Pt's gait is steady when using a FWW, no LOB just small step and slightly stooped forward, likely related to increased pain. Pt is able to walk short distances without the FWW but gait quality is much worse. Pt does tend to let go of the walker with the R hand in favor of holding the painful area but responds well to cues for proper hand placement. Stair Climbing Assessment Comments Stair Climbing Comments not tested PT-Balance Assessment Sitting Balance and Reactions Static Sitting Balance Ability Normal Dynamic Sitting Balance Ability Normal Standing Balance and Reactions Static Standing Balance Ability Normal Dynamic Standing Balance Ability Good M5 PT-IP Objective Assessments Start: 12/02/18 08:54 Freq: NEEDED Status: Active Protocol: Document 12/02/18 15:53 RS (Rec: 12/02/18 16:07 RS [id number]) Orientation Orientation/Cognition Level of Alertness Alert Orientation Name Age Birthday Month Date Year Day of Week Place Situation Language Function Ability No Deficits Noted Safety Awareness Understands Safety Issues Memory Description No Deficits Noted Gross Range of Motion Upper Extremity ROM Assessment Within Functional Limits Lower Extremity ROM Assessment Within Functional Limits Strength Upper Extremity Strength Assessment Within Functional Limits Lower Extremity Strength Assessment Right Impaired Comments Strength Comments pain related weakness for all hip motions, slightly more profound with hip flex and knee ext than other RLE muscle groups M6 PT-IP Treatment Start: 12/02/18 08:54 Freq: NEEDED Status: Active Protocol: Document 12/02/18 15:53 RS (Rec: 12/02/18 16:07 RS [id number]) Physical Therapy Treatment Other Treatments Other Treatment Performed R knee to chest 3 x 30sec hold R sciatic nerve glide (hip @ 90, knee fully extended, then ankle pumps x 10) x 3 M7 PT-IP Assessment and Plan Start: 12/02/18 08:54 Freq: NEEDED Status: Active Protocol: Document 12/02/18 15:53 RS (Rec: 12/02/18 16:07 RS [id number]) PT Summary Assessment and Plan Potential Rehabilitation Potential Good Status of Condition at Evaluation Evolving Summary Impairments Pain Strength Bed Mobility Transfers Gait Activity Tolerance Assessment Summary Pt admitted for GARCIA, swelling, and sudden weight gain after TAVR and stent procedure last month. Pt also presents for acute presentation of R hip/ lumbopelvic pain. There is no obvious cause of injury. Pt's pain is worse in sitting. Special tests negative for hip specific pathology and are more likely pointing at lumbar involvement. Despite pt's high pain levels she is able to mobilize at a SBA level, just needing to take copious amount of extra time. Patient will be safe to discharge directly home once medically ready, will need intermittent assist from spouse and fulltime use of FWW which the patient already has. Patient is far below reported functional baseline, does have potential for functional improvement, and will benefit from ongoing acute PT with transition to HHPT once back at home. Goals Bed Mobility Goal Independent Transfer Goal Independent Gait Goal Independent Gait Distance 50 Other Goals up/down 1 step with sba Days to Meet Goals 2 Frequency of Treatment Frequency Of Treatment Twice a Day Treatment Plan Physical Therapy Treatment Plan Bed Mobility Training Transfer Training Gait Training Therapeutic Exercise Balance Retraining Post Op Education Discharge Planning Hot or Cold Pack Neuromuscular Re-ed Coordination Retraining Manual Therapy Other Recommendations and Next Treatment reinforce log rolling, Focus progress gait tolerance, review HEP or progress HEP to include other exercises (pt has printout) Recommendations To Nursing Amount of Assist Needed Standby Assistance 1 Person Assist Discharge Recommendations PT Discharge Recommendations Home with Assistance Home Health
[2018-12-02] MEDS: POTASSIUM CHLORIDE 20 MEQ/15 ML UDC 15 MEQ PO (16:13)
[2018-12-02 16:14] LABS: INR 2.9 (0.9-1.3); Prothrombin Time 34.1 SECONDS (10.1-12.7)
[2018-12-02 16:33] LABS: Troponin I < 0.012 ng/mL (0.01-0.034)
[2018-12-02] MEDS: DIPHENOXYLATE/ATROP 2.5/0.025 TABLET 1 EACH PO (17:02)
[2018-12-02] MEDS: LIDOCAINE PATCH 1 EACH ADH..PATCH TOP (19:11)
[2018-12-02] MEDS: WARFARIN 3 MG TABLET PO (19:11)
[2018-12-02] MEDS: ATORVASTATIN 20 MG TABLET 80 MG PO (19:11)
[2018-12-02] MEDS: CYCLOBENZAPRINE 10 MG TABLET PO (19:21)
[2018-12-02] MEDS: HYDROCODONE/ACET 5/325 TABLET 0.5 TAB PO (21:11)
[2018-12-03] VITALS (8 sets, daily range): BP systolic 136–161; BP diastolic 62–90; PULSE 62–70; RESP 14–18; TEMP 36.4–36.9; O2SAT 95–100
[2018-12-03] MEDS: HYDROCODONE/ACET 5/325 TABLET 0.5 TAB PO ×2 (05:03→11:15)
[2018-12-03 05:35] LABS: INR 2.9 (0.9-1.3); Prothrombin Time 34.2 SECONDS (10.1-12.7)
[2018-12-03 05:41] LABS: Alanine Aminotransferase 48 IU/L (9-52); Albumin 3.4 g/dL (3.5-5.0); Albumin Globulin Ratio 1.3 (1.0-2.8); Alkaline Phosphatase 97 U/L (38-126); Aspartate Aminotransferase 42 IU/L (14-36); BUN Creatinine Ratio 22.9 (6-22); Bilirubin Total 0.8 mg/dL (0.2-1.3); Blood Urea Nitrogen 16 mg/dL (7-17); Calcium 8.9 mg/dL (8.4-10.2); Carbon Dioxide 31 mmol/L (22-32); Chloride 103 mmol/L (98-107); Estimated Glomerular Filt Rate > 60.0 mL/min (>60); Globulin 2.7 g/dL (1.7-4.1); Glucose 82 mg/dL (80-110); HEMOLYSIS < 15 (0-50); Sodium 139 mmol/L (137-145); Total Protein 6.1 g/dL (6.3-8.2)
[2018-12-03] MEDS: LEVOTHYROXINE 100 MCG TABLET PO (06:21)
[2018-12-03] MEDS: CYCLOBENZAPRINE 10 MG TABLET PO ×3 (06:24→20:40)
[2018-12-03] MEDS: FLUTICASONE/SALMETEROL 250/50 14 PUFF DISKUS INH ×2 (09:01→19:29)
[2018-12-03] MEDS: POTASSIUM CHLORIDE 20 MEQ/15 ML UDC 15 MEQ PO ×2 (09:19→16:24)
[2018-12-03] MEDS: FUROSEMIDE 40 MG/4 ML VIAL IV ×2 (09:21→16:30)
[2018-12-03] MEDS: CLOPIDOGREL 75 MG TABLET PO (09:21)
[2018-12-03] MEDS: METOPROLOL ER 50 MG TABLET PO (09:21)
[2018-12-03] MEDS: BUDESONIDE 3 MG CAP 9 MG PO (09:21)
[2018-12-03] MEDS: SODIUM CHLORIDE 0.9% FLUSH 10 ML IV ×2 (09:22→20:32)
--- NOTE | 2018-12-03 10:20 | PT.IPTN ---
Current Diagnoses Heart failure, unspecified (12/02/18) Physical Therapy Treatment Note M2 PT-IP Current Condition Start: 12/02/18 08:54 Freq: NEEDED Status: Active Protocol: Document 12/02/18 15:40 RS (Rec: 12/02/18 15:42 RS [id number]) Physical Therapy Current Condition Current Condition Evaluation Date 12/02/18 Treatment Diagnosis impaired mobility Onset Date 11/30/18 M3 PT-IP Subjective Start: 12/02/18 08:54 Freq: NEEDED Status: Active Protocol: Document 12/03/18 09:45 CLB (Rec: 12/03/18 12:47 CLB [id number]) Subjective Physical Therapy Visit Type Type Treatment Note Visit Start Time 09:45 Visit Stop Time 10:15 Total Visit Minutes 30 Number of CLAIMS ADJUSTER SUPERVISOR Visits 1 Physical Therapy Visit Comments Patient Comments Pt up in room with student RN upon arrival. Pt c/o back pain but was willing to ambulate. Therapy Pain Assessment Pain When Pain Assessed At Rest Pain Present Pain Present Pain Reported M4 PT-IP Mobility and Gait Start: 12/02/18 08:54 Freq: NEEDED Status: Active Protocol: Document 12/03/18 09:45 CLB (Rec: 12/03/18 12:47 CLB [id number]) PT-Bed Mobility Assessment Rolling Type of Rolling Log Rolling Level of Assist Standby Assistance Supine to Sit Supine to Sit Standby Assistance Sit to Supine Sit to Supine Standby Assistance Scooting Scooting Up and Down in Bed Standby Assistance PT-Transfer Assessment Sit to and From Stand Sit to and from Stand Standby Assistance Equipment Transfer Assistive Device Gait Belt Front Wheeled Walker Transfers Transfer Destination Bed Transfer Technique walked Transfer Ability Level of Assist Standby Assistance Comments Mobility Comments Pt is SBA for all bed mobility and sit-stand. Gait Assessment Gait Gait Assistance Required: Standby Assistance Distance (Feet) 125 Able to Maintain Weight Bearing Status Yes During Gait Assistive Devices Assistive Device Gait Belt Front Wheeled Walker Gait Deviations General Gait Pattern Antalgic Decreased Stride Length Flexed Trunk Factors Limiting Gait Function Factors Limiting Gait Function Pain Comments Gait Comments Pt has good standing balance and was able to ambulate in room with student RN using IV pole but used FWW during ambulation in [place] to aid with pain management. Stair Climbing Assessment Comments Stair Climbing Comments not tested PT-Balance Assessment Sitting Balance and Reactions Static Sitting Balance Ability Normal Dynamic Sitting Balance Ability Normal Standing Balance and Reactions Static Standing Balance Ability Normal Dynamic Standing Balance Ability Good M5 PT-IP Objective Assessments Start: 12/02/18 08:54 Freq: NEEDED Status: Active Protocol: Document 12/02/18 15:53 RS (Rec: 12/02/18 16:07 RS [id number]) Orientation Orientation/Cognition Level of Alertness Alert Orientation Name Age Birthday Month Date Year Day of Week Place Situation Language Function Ability No Deficits Noted Safety Awareness Understands Safety Issues Memory Description No Deficits Noted Gross Range of Motion Upper Extremity ROM Assessment Within Functional Limits Lower Extremity ROM Assessment Within Functional Limits Strength Upper Extremity Strength Assessment Within Functional Limits Lower Extremity Strength Assessment Right Impaired Comments Strength Comments pain related weakness for all hip motions, slightly more profound with hip flex and knee ext than other RLE muscle groups M6 PT-IP Treatment Start: 12/02/18 08:54 Freq: NEEDED Status: Active Protocol: Document 12/03/18 09:45 CLB (Rec: 12/03/18 12:47 CLB [id number]) Physical Therapy Treatment Exercises Exercises Ankle Pumps Gluteal Sets M7 PT-IP Assessment and Plan Start: 12/02/18 08:54 Freq: NEEDED Status: Active Protocol: Document 12/03/18 09:45 CLB (Rec: 12/03/18 12:47 CLB [id number]) PT Summary Assessment and Plan Summary Impairments Pain Strength Bed Mobility Transfers Gait Activity Tolerance Assessment Summary Pt continues to have back pain with mobility but is SBA for all bed mobility and SBA for ~ 125ft ambulation. Goals Bed Mobility Goal Independent Transfer Goal Independent Gait Goal Independent Gait Distance 50 Other Goals up/down 1 step with sba Days to Meet Goals 2 Frequency of Treatment Frequency Of Treatment Twice a Day Treatment Plan Physical Therapy Treatment Plan Bed Mobility Training Transfer Training Gait Training Therapeutic Exercise Balance Retraining Post Op Education Discharge Planning Hot or Cold Pack Neuromuscular Re-ed Coordination Retraining Manual Therapy Recommendations To Nursing Amount of Assist Needed Standby Assistance 1 Person Assist Discharge Recommendations PT Discharge Recommendations Home with Assistance Home Health
--- NOTE | 2018-12-03 10:29 | PC.NURSE ---
Addendum entered by Lara Kiser R.N. 12/03/18 11:18: PAIN - after repositioning, pt back discomfort increased to 7 on scale 0/10, given 0.5mg po norco 5/325mg tab. Original Note: AM NOTE - awake, does have back discomfort, earlier norco did provide some relief, declines ice pack this am, mildy sob w/speech, bs coarse, clear, ra 98%, hr w/valve, occass irreg 62, 1+ pedal edema, later am up with phys therapy, using fww, ambul hallway and ret to bed, no dizziness, no complaint sob, some noted with exhertion, iv lasix admin.
--- NOTE | 2018-12-03 13:40 | PM.PN.1 ---
Subjective Date Patient Seen: 12/03/18 Interval history: The patient is a 77-year-old female with a history of aortic valve replacement, status post TAVR who is here with shortness of breath due to congestive heart failure. Patient received Lasix yesterday and had excellent diuresis. Her major complaint today is back pain. She has had back pain for weeks. She has had pain in the right hip. I discussed her case with Dr. Bowden who will see her in consultation tomorrow. Based upon his review of the CT scan of the spine he does not recommend any further imaging or intervention at this time. Patient has been taking Lortab 0.5 every 6 hours with minimal relief. She does feel the Robaxin a somewhat helpful. She started stoma 2 weeks ago which seemed to help somewhat as well. She does have irritable bowel syndrome and typically has diarrhea. She is concerned about constipation on narcotics. Her preference is not to take any narcotics however she is willing to do so if there is no other treatment for her pain. Pain seems to be worse with any movement. Getting up out of bed to urinate causes pain. Exam Vital Signs (past 8 hours): - 12/03/18 08:00 12/03/18 09:01 12/03/18 12:00 Temperature 97.6 F 98 F Pulse Rate 62 65 67 Respiratory Rate 18 16 18 Blood Pressure 147/71 H 136/68 Pulse Oximetry 97 97 98 Oxygen Delivery Method Room Air Oxygen Flow Rate 0 Narrative Exam Narrative: Pleasant female lying in bed Lungs: Decreased breath sounds bilateral Cardiac exam: Regular rate and rhythm normal S1-S2 Abdomen: Soft and nontender mildly distended no hepatosplenomegaly Extremities: 1 to 2+ edema pitting bilateral Objective Labs Result Diagrams: 12/01/18 23:15 12/03/18 04:59 Labs: Laboratory Results - last 24 hr 12/02/18 12/02/18 12/02/18 14:25 14:25 14:25 PT INR Sodium 140 Potassium 4.2 D Chloride 101 Carbon Dioxide 34 H BUN 17 Creatinine 0.70 Estimated GFR > 60.0 BUN/Creatinine Ratio 24.3 H Glucose 110 Calcium 8.4 Magnesium 1.9 Total Bilirubin AST ALT Alkaline Phosphatase Troponin I < 0.012 Total Protein Albumin Globulin Albumin/Globulin Ratio 12/02/18 12/03/18 12/03/18 15:10 04:59 04:59 PT 34.1 H 34.2 H INR 2.9 H 2.9 H Sodium 139 Potassium 4.0 Chloride 103 Carbon Dioxide 31 BUN 16 Creatinine 0.70 Estimated GFR > 60.0 BUN/Creatinine Ratio 22.9 H Glucose 82 Calcium 8.9 Magnesium 2.0 Total Bilirubin 0.8 AST 42 H ALT 48 Alkaline Phosphatase 97 Troponin I Total Protein 6.1 L Albumin 3.4 L Globulin 2.7 Albumin/Globulin Ratio 1.3 Assessment & Plan (1) Acute CHF: Problem details: Patient presents with acute decompensated congestive heart failure. She has preserved systolic function. She has had excellent response with diuresis but will need to continue diuresis given her persistent lower extremity edema. Qualifiers: Heart failure type: unspecified Qualified Code(s): I50.9 - Heart failure, unspecified Current visit: Yes Status: Acute (2) H/O prosthetic aortic valve replacement: Problem details: TAVR 12/05/2018 Patient is on a therapeutic dose of Coumadin and will continue same. 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 There is no acute issue identified. No further imaging studies needed. Patient is not a candidate for kyphoplasty. Will consult Dr. Bowden who will evaluate her tomorrow. In the interim will continue PT. Will adjust her pain medication accordingly. Current visit: Yes Status: Acute (6) Right hip pain: Problem details: Right hip pain, likely referred from her spine. Will continue PT and pain regimen Current visit: Yes Status: Acute (7) Hypothyroid: Problem details: Chronic, continue normal meds Current visit: Yes Status: Acute (8) Chronic atrial fibrillation: Problem details: Chronic, rate controlled, continue usual medications. Current visit: Yes Status: Acute Assessment & Plan narrative: Anticipated discharge home tomorrow. Quality VTE Deep Vein Thrombosis/Pulmonary Embolism Present on Admission: No
--- NOTE | 2018-12-03 15:49 | PT.IPTN ---
Current Diagnoses Hypothyroidism, unspecified (12/02/18) Obstructive sleep apnea (adult) (pediatric) (12/02/18) Chronic atrial fibrillation (12/02/18) Heart failure, unspecified (12/02/18) Noninfective gastroenteritis and colitis, unspecified (12/02/18) Pain in right hip (12/02/18) Dorsalgia, unspecified (12/02/18) Presence of prosthetic heart valve (12/02/18) Physical Therapy Treatment Note M2 PT-IP Current Condition Start: 12/02/18 08:54 Freq: NEEDED Status: Active Protocol: Document 12/02/18 15:40 RS (Rec: 12/02/18 15:42 RS [id number]) Physical Therapy Current Condition Current Condition Evaluation Date 12/02/18 Treatment Diagnosis impaired mobility Onset Date 11/30/18 M3 PT-IP Subjective Start: 12/02/18 08:54 Freq: NEEDED Status: Active Protocol: Document 12/03/18 14:55 CLB (Rec: 12/03/18 15:49 CLB [id number]) Subjective Physical Therapy Visit Type Type Treatment Note Visit Start Time 14:55 Visit Stop Time 15:10 Total Visit Minutes 15 Number of MILLING MACHINIST Visits 1 Therapy Pain Assessment Pain When Pain Assessed During Mobility Pain Present Pain Present Pain Reported M4 PT-IP Mobility and Gait Start: 12/02/18 08:54 Freq: NEEDED Status: Active Protocol: Document 12/03/18 14:55 CLB (Rec: 12/03/18 15:49 CLB [id number]) PT-Bed Mobility Assessment Rolling Type of Rolling Log Rolling Roll to Right Level of Assist Standby Assistance Supine to Sit Supine to Sit Standby Assistance Sit to Supine Sit to Supine Standby Assistance Scooting Scooting to Edge of Bed Standby Assistance Scooting Up and Down in Bed Standby Assistance PT-Transfer Assessment Sit to and From Stand Sit to and from Stand Standby Assistance Equipment Transfer Assistive Device Gait Belt Front Wheeled Walker Transfers Transfer Destination Bed Chair Transfer Technique walked Transfer Ability Level of Assist Standby Assistance Comments Mobility Comments Pt unable to tolerate sitting in chair and needed transfer to bed. Gait Assessment Gait Gait Assistance Required: Standby Assistance Distance (Feet) 125 Able to Maintain Weight Bearing Status Yes During Gait Assistive Devices Assistive Device Gait Belt Front Wheeled Walker Gait Deviations General Gait Pattern Antalgic Decreased Stride Length Flexed Trunk Factors Limiting Gait Function Factors Limiting Gait Function Pain Stair Climbing Assessment Comments Stair Climbing Comments not tested PT-Balance Assessment Sitting Balance and Reactions Static Sitting Balance Ability Normal Dynamic Sitting Balance Ability Normal Standing Balance and Reactions Static Standing Balance Ability Normal Dynamic Standing Balance Ability Good M5 PT-IP Objective Assessments Start: 12/02/18 08:54 Freq: NEEDED Status: Active Protocol: Document 12/02/18 15:53 RS (Rec: 12/02/18 16:07 RS [id number]) Orientation Orientation/Cognition Level of Alertness Alert Orientation Name Age Birthday Month Date Year Day of Week Place Situation Language Function Ability No Deficits Noted Safety Awareness Understands Safety Issues Memory Description No Deficits Noted Gross Range of Motion Upper Extremity ROM Assessment Within Functional Limits Lower Extremity ROM Assessment Within Functional Limits Strength Upper Extremity Strength Assessment Within Functional Limits Lower Extremity Strength Assessment Right Impaired Comments Strength Comments pain related weakness for all hip motions, slightly more profound with hip flex and knee ext than other RLE muscle groups M6 PT-IP Treatment Start: 12/02/18 08:54 Freq: NEEDED Status: Active Protocol: Document 12/03/18 14:55 CLB (Rec: 12/03/18 15:49 CLB [id number]) Physical Therapy Treatment Exercises Exercises Ankle Pumps M7 PT-IP Assessment and Plan Start: 12/02/18 08:54 Freq: NEEDED Status: Active Protocol: Document 12/03/18 14:55 CLB (Rec: 12/03/18 15:49 CLB [id number]) PT Summary Assessment and Plan Summary Impairments Pain Strength Bed Mobility Transfers Gait Activity Tolerance Assessment Summary Pt with increased back pain this afternoon but was able to ambulate ~125ft. Pt attempted to sit in chair but was unable due to increased pain and was transferred back to bed promptly. Goals Bed Mobility Goal Independent Transfer Goal Independent Gait Goal Independent Gait Distance 50 Other Goals up/down 1 step with sba Days to Meet Goals 2 Frequency of Treatment Frequency Of Treatment Twice a Day Treatment Plan Physical Therapy Treatment Plan Bed Mobility Training Transfer Training Gait Training Therapeutic Exercise Balance Retraining Post Op Education Discharge Planning Hot or Cold Pack Neuromuscular Re-ed Coordination Retraining Manual Therapy Recommendations To Nursing Amount of Assist Needed Standby Assistance 1 Person Assist Discharge Recommendations PT Discharge Recommendations Home with Assistance Home Health
[2018-12-03] MEDS: WARFARIN 3 MG TABLET PO (16:25)
[2018-12-03] MEDS: HYDROCODONE/ACET 5/325 TABLET 1 TAB PO (20:28)
[2018-12-03] MEDS: ATORVASTATIN 20 MG TABLET 80 MG PO (20:31)
[2018-12-03] MEDS: SENNOSIDES 8.6 MG TABLET 17.2 MG PO (20:31)
[2018-12-03] MEDS: LIDOCAINE PATCH 1 EACH ADH..PATCH TOP (20:33)
[2018-12-04] VITALS (8 sets, daily range): BP systolic 104–147; BP diastolic 61–75; PULSE 58–74; RESP 15–20; TEMP 36.1–36.4; O2SAT 96–98
[2018-12-04 05:50] LABS: BUN Creatinine Ratio 18.6 (6-22); Blood Urea Nitrogen 13 mg/dL (7-17); Calcium 8.7 mg/dL (8.4-10.2); Carbon Dioxide 35 mmol/L (22-32); Chloride 99 mmol/L (98-107); Estimated Glomerular Filt Rate > 60.0 mL/min (>60); Glucose 88 mg/dL (80-110); HEMOLYSIS < 15 (0-50); Potassium 3.6 mmol/L (3.4-5.1); Sodium 139 mmol/L (137-145)
[2018-12-04] MEDS: LEVOTHYROXINE 100 MCG TABLET PO (06:22)
--- NOTE | 2018-12-04 06:33 | PC.NURSE ---
removed lidocaine patch at 0630
[2018-12-04] MEDS: HYDROCODONE/ACET 5/325 TABLET 1 TAB PO ×4 (06:38→21:13)
[2018-12-04] MEDS: FLUTICASONE/SALMETEROL 250/50 14 PUFF DISKUS INH ×2 (07:35→18:13)
[2018-12-04] MEDS: BUDESONIDE 3 MG CAP 9 MG PO (09:05)
[2018-12-04] MEDS: CLOPIDOGREL 75 MG TABLET PO (09:06)
[2018-12-04] MEDS: MIRTAZAPINE 7.5 MG TABLET PO (09:06)
[2018-12-04] MEDS: POTASSIUM CHLORIDE 20 MEQ/15 ML UDC 15 MEQ PO ×2 (09:06→16:51)
[2018-12-04] MEDS: METOPROLOL ER 50 MG TABLET PO (09:06)
[2018-12-04] MEDS: SODIUM CHLORIDE 0.9% FLUSH 10 ML IV ×2 (09:06→21:09)
[2018-12-04] MEDS: CYCLOBENZAPRINE 10 MG TABLET PO (09:53)
[2018-12-04] MEDS: FUROSEMIDE 40 MG/4 ML VIAL IV (10:25)
--- NOTE | 2018-12-04 11:05 | PT.IPTN ---
Current Diagnoses Hypothyroidism, unspecified (12/02/18) Obstructive sleep apnea (adult) (pediatric) (12/02/18) Chronic atrial fibrillation (12/02/18) Heart failure, unspecified (12/02/18) Noninfective gastroenteritis and colitis, unspecified (12/02/18) Pain in right hip (12/02/18) Dorsalgia, unspecified (12/02/18) Presence of prosthetic heart valve (12/02/18) Physical Therapy Treatment Note M2 PT-IP Current Condition Start: 12/02/18 08:54 Freq: NEEDED Status: Active Protocol: Document 12/02/18 15:40 RS (Rec: 12/02/18 15:42 RS [id number]) Physical Therapy Current Condition Current Condition Evaluation Date 12/02/18 Treatment Diagnosis impaired mobility Onset Date 11/30/18 M3 PT-IP Subjective Start: 12/02/18 08:54 Freq: NEEDED Status: Active Protocol: Document 12/04/18 11:05 GGD (Rec: 12/04/18 11:38 GGD [email or web address]) Subjective Physical Therapy Visit Type Type Treatment Note Visit Start Time 10:40 Visit Stop Time 11:05 Total Visit Minutes 25 Number of AIR BRAKE ADJUSTER Visits 3 Physical Therapy Visit Comments Patient Comments Pt states she having lots of pain. Therapy Pain Assessment Pain When Pain Assessed During Mobility Pain Present Pain Present Pain Reported M4 PT-IP Mobility and Gait Start: 12/02/18 08:54 Freq: NEEDED Status: Active Protocol: Document 12/04/18 11:05 GGD (Rec: 12/04/18 11:38 GGD [email or web address]) PT-Bed Mobility Assessment Rolling Type of Rolling Log Rolling Roll to Right Level of Assist Standby Assistance Supine to Sit Supine to Sit Standby Assistance Sit to Supine Sit to Supine Standby Assistance Scooting Scooting to Edge of Bed Standby Assistance Scooting Up and Down in Bed Standby Assistance PT-Transfer Assessment Sit to and From Stand Sit to and from Stand Standby Assistance Equipment Transfer Assistive Device Gait Belt Front Wheeled Walker Transfers Transfer Destination Bed Toilet Transfer Technique walked Transfer Ability Level of Assist Standby Assistance Comments Mobility Comments Pt needed min cues for full log roll. Gait Assessment Gait Gait Assistance Required: Standby Assistance Distance (Feet) 45 Able to Maintain Weight Bearing Status Yes During Gait Assistive Devices Assistive Device Gait Belt Front Wheeled Walker Gait Deviations General Gait Pattern Antalgic Decreased Stride Length Flexed Trunk Factors Limiting Gait Function Factors Limiting Gait Function Pain M5 PT-IP Objective Assessments Start: 12/02/18 08:54 Freq: NEEDED Status: Active Protocol: Document 12/02/18 15:53 RS (Rec: 12/02/18 16:07 RS [id number]) Orientation Orientation/Cognition Level of Alertness Alert Orientation Name Age Birthday Month Date Year Day of Week Place Situation Language Function Ability No Deficits Noted Safety Awareness Understands Safety Issues Memory Description No Deficits Noted Gross Range of Motion Upper Extremity ROM Assessment Within Functional Limits Lower Extremity ROM Assessment Within Functional Limits Strength Upper Extremity Strength Assessment Within Functional Limits Lower Extremity Strength Assessment Right Impaired Comments Strength Comments pain related weakness for all hip motions, slightly more profound with hip flex and knee ext than other RLE muscle groups M6 PT-IP Treatment Start: 12/02/18 08:54 Freq: NEEDED Status: Active Protocol: Document 12/04/18 11:05 GGD (Rec: 12/04/18 11:38 GGD [email or web address]) Physical Therapy Treatment Exercises Exercises Ankle Pumps Gluteal Sets Education Education Provided Precautions M7 PT-IP Assessment and Plan Start: 12/02/18 08:54 Freq: NEEDED Status: Active Protocol: Document 12/04/18 11:05 GGD (Rec: 12/04/18 11:38 GGD [email or web address]) PT Summary Assessment and Plan Summary Assessment Summary Pt was safe with mobility. She was limited by pain. She need cues for full log roll and cues with turns. Treatment Plan Physical Therapy Treatment Plan Bed Mobility Training Transfer Training Gait Training Therapeutic Exercise Balance Retraining Post Op Education Discharge Planning Hot or Cold Pack Neuromuscular Re-ed Coordination Retraining Manual Therapy Other Recommendations and Next Treatment stair mobility. Focus Recommendations To Nursing Amount of Assist Needed Standby Assistance 1 Person Assist Discharge Recommendations PT Discharge Recommendations Home with Assistance Home Health
[2018-12-04] MEDS: diazePAM 5 MG TABLET 2.5 MG PO ×2 (13:13→21:14)
--- NOTE | 2018-12-04 13:36 | CM.DPC ---
Addendum entered by Savanah White LPN 12/04/18 13:50: Info imparted. Dr. Cifuentes is now in room explaining POC to pt (her has left for lunch). Pt will now go to IV morphine in attempt to get better pain control. P: likely [facility] when stable for d/c. Original Note: DCP: continued: Case received, EMR reviewed and met with pt and her . Pt was found curled on her side in bed, looking very uncomfortable. She and her Pat note that her pain seems to be increasing every day and pt is feeling very discouraged and overwhelmed. They did speak with Dr. Cifuentes this morning and are waiting for orthopedics to consult: Dr. Bowden is expected. Pt with multiple comorbidities and now with new compression fracture. DC issues and options discussed. OT order obtained to assist in this process. Pat is encouraging pt to the snf rehab setting but only when they can get her in better pain control, this has been terrible for her. Pt agrees that going home at this point will not be doable. SNF choice list: discussed. Decision: [facility] as is only local facility. Pt has desire for a pvt room, is aware that their may be a facility in [facility] that can provide this but [facility] does not have one. After discussion, they decide that staying in [facility] is most important factor in this decision. Referral: to [facility]: [facility]. She will try to place pt in a room without a roommate but cannot say that this will be for more than a day or 2. She says option is there to pay for the other bed at the daily snf rate. Will update pt now and give them [facility]'s cell # (per [facility]ra's suggestion) in case of need for more information on this.
--- NOTE | 2018-12-04 16:44 | PT.IPTN ---
Current Diagnoses Hypothyroidism, unspecified (12/02/18) Obstructive sleep apnea (adult) (pediatric) (12/02/18) Chronic atrial fibrillation (12/02/18) Heart failure, unspecified (12/02/18) Noninfective gastroenteritis and colitis, unspecified (12/02/18) Pain in right hip (12/02/18) Dorsalgia, unspecified (12/02/18) Presence of prosthetic heart valve (12/02/18) Physical Therapy Treatment Note M2 PT-IP Current Condition Start: 12/02/18 08:54 Freq: NEEDED Status: Active Protocol: Document 12/02/18 15:40 RS (Rec: 12/02/18 15:42 RS [id number]) Physical Therapy Current Condition Current Condition Evaluation Date 12/02/18 Treatment Diagnosis impaired mobility Onset Date 11/30/18 M3 PT-IP Subjective Start: 12/02/18 08:54 Freq: NEEDED Status: Active Protocol: Document 12/04/18 16:00 GGD (Rec: 12/04/18 16:44 GGD [email or web address]) Subjective Physical Therapy Visit Type Type Administrative Note Notes Per RN, pt sleeping and will see in AM. [facility]
[2018-12-04] MEDS: WARFARIN 3 MG TABLET PO (16:51)
--- NOTE | 2018-12-04 16:52 | P.PN_ITS ---
Subjective Date Patient Seen: 12/04/18 Interval history: Patient has had continued significant pain involving her back and her hip. She notes with any movement she has significant pain. She has been tearful and anxious today. She has been able to get up and move with PT and OT but with considerable discomfort. She denies any shortness of breath. She continues to have good urine output. She continues to have minimal lower extremity edema. The patient and her have elected that [facility] given her significant pain and difficulty with movement. Exam Vital Signs (past 8 hours): - 12/04/18 12:00 12/04/18 12:09 12/04/18 15:57 Temperature 97.5 F L 97.0 F L Pulse Rate 66 74 Respiratory Rate 16 20 Blood Pressure 139/71 139/61 128/75 Pulse Oximetry 98 96 Fraction of Inspired Oxygen 21 Oxygen Delivery Method Room Air Oxygen Flow Rate 0 Narrative Exam Narrative: Anxious ill-appearing female Lungs: Clear to auscultation Cardiac exam: Regular rate rhythm normal S1-S2 with a 2/6 systolic ejection Abdomen: Soft nontender nondistended Extremities: Trace edema Objective Labs Result Diagrams: 12/01/18 23:15 12/04/18 05:22 Labs: Laboratory Results - last 24 hr 12/04/18 05:22 Sodium 139 Potassium 3.6 Chloride 99 Carbon Dioxide 35 H BUN 13 Creatinine 0.70 Estimated GFR > 60.0 BUN/Creatinine Ratio 18.6 Glucose 88 Calcium 8.7 Assessment & Plan (1) Chronic atrial fibrillation: Problem details: Paroxysmal atrial fibrillation, present on admission, rate currently controlled. Will continue current medication Current visit: Yes Status: Acute (2) Hypothyroid: Problem details: Chronic, continue normal meds Current visit: Yes Status: Acute (3) Right hip pain: Problem details: Right hip pain, likely referred from her spine. Will continue PT and pain regimen Patient with significant hip pain with movement. With added Valium, increased her Lortab, and added as needed morphine. She will continue with PT and OT and we expect she will go to SNF at discharge. 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 There is no acute issue identified. No further imaging studies needed. Patient is not a candidate for kyphoplasty. Will continue physical therapy, pain control, and anticipate discharge to SNF for rehab as she recovers. Current visit: Yes Status: Acute (5) Acute CHF: Problem details: Patient presents with acute decompensated congestive heart failure. She has preserved systolic function. She has had excellent response with diuresis but will need to continue diuresis given her persistent lower extremity edema. Will switch to oral Lasix at 60 mg per day. Qualifiers: Heart failure type: unspecified Qualified Code(s): I50.9 - Heart failure, unspecified Current visit: Yes Status: Acute (6) H/O prosthetic aortic valve replacement: Problem details: TAVR 12/05/2018 Patient is on a therapeutic dose of Coumadin and will continue same. Current visit: No Status: Acute (7) Obstructive sleep apnea of adult: Problem details: Chronic Current visit: No Status: Chronic Assessment & Plan narrative: Anticipate discharge to SNF tomorrow. Quality VTE Deep Vein Thrombosis/Pulmonary Embolism Present on Admission: No
--- NOTE | 2018-12-04 17:01 | PM.CN ---
History of Present Illness Date Patient Seen: 12/04/18 Time Patient Seen: 17:01 Chief complaint: valve replacement,SOB,swelling hands and feet Reason for consult: back pain, worsening with time Requesting provider: Charmaine Cifuentes Narrative: Ms. Nair is a 77 yo F admitted for cardiac issue on Sunday. She has been having worsening back pain with progressive more limitations to walking and standing due to her back pain. She has been having some back pain on and off but never this severe. [facility] Medical History Obstructive sleep apnea of adult (Chronic) Colitis (Acute) Acute chest pain (Acute) Anti-phospholipid syndrome (Acute) Asthma (Acute) Chronic atrial fibrillation (Acute) Current use of correction anticoagulation (Acute) History of hysterectomy (Acute) IBS (irritable bowel syndrome) (Acute) Laceration (Inactive) Surgical History H/O prosthetic aortic valve replacement (Acute) History of cholecystectomy (Acute) History of coronary artery stent placement (Acute) History of ear surgery (Acute) History of mandibular surgery (Acute) History of sinus surgery (Acute) Social History marital status: details: to [facility], lives in [place] household members: spouse lives independently: Yes caregiver/support person: No housing: house Smoking Status: Never smoker Social History marital status: details: to [facility], lives in [place] household members: spouse lives independently: Yes caregiver/support person: No housing: house Smoking Status: Never smoker alcohol intake: never Meds Home Medications Medication Instructions Recorded Confirmed Type triamcinolone acetonide [Nasacort] 1 puff INTRANASAL QDAYP PRN #0 07/31/11 12/02/18 History levothyroxine 0.1 mg PO QDAY #0 03/01/12 12/02/18 History acetaminophen [Tylenol Extra 500 mg PO Q6HP PRN #0 12/28/12 12/02/18 History Strength] diazepam [Valium] 5 mg PO Q8HP PRN #0 12/28/12 12/02/18 History fluticasone propion-salmeterol 1 puff INH BID #0 12/28/12 12/02/18 History [Advair Diskus] [ALAWAY 0.025%] 1 drp OPHTH BID #0 09/10/17 12/02/18 History diphenoxylate-atropine 1 tab PO Q6HP PRN #0 09/10/17 12/02/18 History Vitamin D3 1 tab PO DAILY 12/10/17 12/02/18 History atorvastatin 80 mg PO BEDTIME 12/10/17 12/02/18 History budesonide 9 mg PO QDAY 12/10/17 12/02/18 History cetirizine [Zyrtec] 10 mg PO DAILY PRN 12/10/17 12/02/18 History furosemide 40 mg PO DAILY 12/10/17 12/02/18 History ketotifen fumarate [Alaway] 1 drp OPHTHALMIC (EYE) BID 12/10/17 12/02/18 History levalbuterol tartrate [Xopenex HFA] 1 puff INHALATION Q4H PRN 12/10/17 12/02/18 History nystatin 5 ml PO QID 12/10/17 12/02/18 History warfarin 3 mg PO DAILY 12/10/17 12/02/18 History Respironics [employer] Auto CPAP #1 ea 08/08/18 12/02/18 History metoprolol succinate ER 50 mg 50 mg PO DAILY 08/09/18 12/02/18 History tablet,extended release 24 hr clopidogrel 75 mg tablet 75 mg PO DAILY 11/07/18 12/02/18 History mirtazapine 7.5 mg tablet 7.5 mg PO DAILY 11/07/18 12/02/18 History ranitidine 150 mg tablet 150 mg PO DAILY 11/07/18 12/02/18 History diphenoxylate-atropine [Lomotil] 1 tab PO Q6-8H PRN 12/02/18 12/02/18 History nitroglycerin 0.6 mg SUBLINGUAL Q5-15M PRN 12/02/18 12/02/18 History potassium chloride 20 meq PO DAILY 12/02/18 12/02/18 History Allergies Allergy/AdvReac Type Severity Reaction Status Date / Time azithromycin Allergy Severe Difficulty Verified 12/03/18 13:59 Breathing Sulfa (Sulfonamide Allergy Mild Verified 12/02/18 04:07 Antibiotics) propoxyphene AdvReac Intermediate UPSET Verified 12/03/18 13:59 STOMACH aspirin AdvReac Mild CONTRAINDICATED Verified 12/02/18 05:14 WITH WARFARIN pantoprazole AdvReac Gastrointestinal Verified 12/01/18 22:59 Upset trazodone AdvReac Depression Verified 12/01/18 22:59 Review of Systems Review of Systems All systems reviewed & are unremarkable except as noted in HPI and below Exam Vital Signs (past 8 hours): - 12/04/18 12:00 12/04/18 12:09 12/04/18 15:57 Temperature 97.5 F L 97.0 F L Pulse Rate 66 74 Respiratory Rate 16 20 Blood Pressure 139/71 139/61 128/75 Pulse Oximetry 98 96 Fraction of Inspired Oxygen 21 Oxygen Delivery Method Room Air Oxygen Flow Rate 0 Back/Spine/Pelvis Back: other (Severe pain with rotation in bed, pain is localized in lower lumbar) Neuro General: alert, awake and oriented x3 Motor: strength 5/5 throughout Sensory Exam: no sensory deficits noted Objective Labs Result Diagrams: 12/01/18 23:15 12/04/18 05:22 Labs: Laboratory Results - last 24 hr 12/04/18 05:22 Sodium 139 Potassium 3.6 Chloride 99 Carbon Dioxide 35 H BUN 13 Creatinine 0.70 Estimated GFR > 60.0 BUN/Creatinine Ratio 18.6 Glucose 88 Calcium 8.7 Assessment & Plan Assessment & Plan narrative: Severe back pain progressively worsening since admission 3 days ago. No neurologit deficit. CT shows advanced degenerative changes. With severe pain and unable to walk, sit, stand. Chronic appearing fx at L2 above the area of pain on exam. Other possible diagnoses/work up may be discitis/osteomyelitis of spine. I discussed my recommendation with Dr. Cifuentes. She may benefit from MRI of spine to rule out discitis/osteomyelitis. She may not be a candidate due to her aortic valve. I recommended ordering CBC, ESR, CRP to rule out infection. I will follow her labs along with other studies once they are available. She can continue PT as tolerated. Time Spent With Patient Time with patient: 25 - 35 minutes
[2018-12-04 17:35] LABS: Add Manual Diff / Slide Review NO; Basophils Absolute Auto 100 /uL (0-100); Basophils Percent Auto 0.4 % (0-2); Eosinophils Absolute Auto 100 /uL (0-450); Eosinophils Percent Auto 0.5 % (2-4); Hematocrit 41.4 % (36-46); Hemoglobin 13.3 g/dL (12.0-16.0); Lymphocytes Absolute Auto 1300 /uL (1100-4500); Lymphocytes Percent Auto 11.3 % (25-40); Mean Corpuscular HGB Conc 32.2 % (30-36); Mean Corpuscular Hemoglobin 26.1 PG (26-34); Mean Corpuscular Volume 80.8 fL (80-100); Monocytes Absolute Auto 800 /uL (0-900); Monocytes Percent Auto 6.4 % (3-14); Neutrophils Absolute Auto 9600 /uL (1500-7000); Neutrophils Percent Auto 81.4 % (50-75); Platelet Count 294 X10^3/uL (150-400); Red Blood Cell Count 5.12 X10^6/uL (4.0-5.2); White Blood Cell Count 11.8 X10^3/uL (4.5-11.0)
[2018-12-04 17:50] LABS: C-Reactive Protein Quant 1.7 mg/dL (<1.0)
[2018-12-04 17:55] LABS: Erythrocyte Sedimentation Rate 11 MM/HR (0-20)
[2018-12-04] MEDS: ATORVASTATIN 20 MG TABLET 80 MG PO (21:10)
[2018-12-05] VITALS (7 sets, daily range): BP systolic 115–140; BP diastolic 62–88; PULSE 56–72; RESP 16–20; TEMP 36.3–36.7; O2SAT 95–99
[2018-12-05] MEDS: HYDROCODONE/ACET 5/325 TABLET 1 TAB PO ×5 (01:18→18:53)
[2018-12-05 07:03] LABS: BUN Creatinine Ratio 18.3 (6-22); Blood Urea Nitrogen 11 mg/dL (7-17); Calcium 8.7 mg/dL (8.4-10.2); Carbon Dioxide 32 mmol/L (22-32); Chloride 97 mmol/L (98-107); Estimated Glomerular Filt Rate > 60.0 mL/min (>60); Glucose 108 mg/dL (80-110); HEMOLYSIS < 15 (0-50); Potassium 3.5 mmol/L (3.4-5.1); Sodium 135 mmol/L (137-145)
[2018-12-05] MEDS: LEVOTHYROXINE 100 MCG TABLET PO (07:16)
[2018-12-05] MEDS: CYCLOBENZAPRINE 10 MG TABLET PO ×3 (07:16→18:53)
[2018-12-05] MEDS: FLUTICASONE/SALMETEROL 250/50 14 PUFF DISKUS INH ×2 (08:10→17:42)
[2018-12-05] MEDS: POTASSIUM CHLORIDE 20 MEQ/15 ML UDC 15 MEQ PO ×2 (08:57→17:08)
[2018-12-05] MEDS: FUROSEMIDE 20 MG TABLET 60 MG PO (08:58)
[2018-12-05] MEDS: CLOPIDOGREL 75 MG TABLET PO (08:58)
[2018-12-05] MEDS: BUDESONIDE 3 MG CAP 9 MG PO (08:58)
[2018-12-05] MEDS: METOPROLOL ER 50 MG TABLET PO (08:59)
[2018-12-05] MEDS: SODIUM CHLORIDE 0.9% FLUSH 10 ML IV ×2 (08:59→21:53)
[2018-12-05] MEDS: diazePAM 5 MG TABLET 2.5 MG PO ×2 (09:08→22:00)
[2018-12-05] MEDS: MORPHINE 2 MG/ML INJ IV ×2 (11:24→13:30)
--- NOTE | 2018-12-05 11:37 | PC.NURSE ---
1125Pt conttoc/oback spasm, pain of 10 at this time. Med w/MS 2mg. Plan is for MRI of spine today. Spouse at bedside, Dr Cifuentes updated Pt and spouse on plan.
--- NOTE | 2018-12-05 11:47 | PT.IPTN ---
Current Diagnoses Hypothyroidism, unspecified (12/02/18) Obstructive sleep apnea (adult) (pediatric) (12/02/18) Chronic atrial fibrillation (12/02/18) Heart failure, unspecified (12/02/18) Noninfective gastroenteritis and colitis, unspecified (12/02/18) Pain in right hip (12/02/18) Dorsalgia, unspecified (12/02/18) Presence of prosthetic heart valve (12/02/18) Physical Therapy Treatment Note M2 PT-IP Current Condition Start: 12/02/18 08:54 Freq: NEEDED Status: Active Protocol: Document 12/02/18 15:40 RS (Rec: 12/02/18 15:42 RS [id number]) Physical Therapy Current Condition Current Condition Evaluation Date 12/02/18 Treatment Diagnosis impaired mobility Onset Date 11/30/18 M3 PT-IP Subjective Start: 12/02/18 08:54 Freq: NEEDED Status: Active Protocol: Document 12/05/18 11:47 GGD (Rec: 12/05/18 11:47 GGD [id number]) Subjective Physical Therapy Visit Type Type Patient Refusal Notes Pt refused, states she just got back to bed and is having increase in pain. M4 PT-IP Mobilit
--- NOTE | 2018-12-05 11:58 | OT.IP.EVAL ---
Current Diagnoses Hypothyroidism, unspecified (12/02/18) Obstructive sleep apnea (adult) (pediatric) (12/02/18) Chronic atrial fibrillation (12/02/18) Heart failure, unspecified (12/02/18) Noninfective gastroenteritis and colitis, unspecified (12/02/18) Pain in right hip (12/02/18) Dorsalgia, unspecified (12/02/18) Presence of prosthetic heart valve (12/02/18) Past Medical History (Last Reviewed 12/02/18 @ 04:00 by LYN Jade) Obstructive sleep apnea of adult (Chronic) Colitis (Acute) Acute chest pain (Acute) Anti-phospholipid syndrome (Acute) Asthma (Acute) Chronic atrial fibrillation (Acute) Current use of watermelon inspector anticoagulation (Acute) History of hysterectomy (Acute) IBS (irritable bowel syndrome) (Acute) Laceration (Inactive) Surgical History (Last Reviewed 12/02/18 @ 04:00 by LYN Jade) H/O prosthetic aortic valve replacement (Acute) History of cholecystectomy (Acute) History of coronary artery stent placement (Acute) History of ear surgery (Acute) History of mandibular surgery (Acute) History of sinus surgery (Acute) Occupational Therapy Inpatient Evaluation/Re-Eval M1 PT/OT-IP Prior Functional Status Start: 12/02/18 08:54 Freq: NEEDED Status: Active Protocol: Document 12/05/18 11:39 CGR (Rec: 12/05/18 11:58 CGR [email or web address]) Medical Review Prior Functional Status Medical History Reviewed Yes Diet/Fluid Consistency Regular Communication no known deficits Mobility and Gait ind without device but does own a FWW Activities of Daily Living and IADL's ind Prior Functional Level (Other details) recently finished cardiac rehab program here at Social History Household Members spouse Living Arrangements House Number of Floors (Floors) Two Floors Number of Stairs To Enter/Railing? 1STE through garage, no rail Home Environment Standard Height Toilet Walk in Shower Home Equipment Front Wheel Walker Employment Status Retired Additional Social History Comment home is mostly all on one floor, pt does have a basement where the extra freezer and treadmill are located M2 OT-IP Current Condition Start: 12/05/18 11:38 Freq: Status: Active Protocol: Document 12/05/18 11:39 CGR (Rec: 12/05/18 11:58 CGR [email or web address]) Occupational Therapy Current Condition Current Condition Evaluation Date 12/05/18 Treatment Diagnosis CHF exacerbation M3 OT- IP Subjective and Pain Start: 12/05/18 11:38 Freq: Status: Active Protocol: Document 12/05/18 11:39 CGR (Rec: 12/05/18 11:58 CGR [email or web address]) OT- Subjective Occupational Therapy Visit Type Type Initial Evaluation Visit Start Time 09:41 Visit Stop Time 10:21 Total Visit Minutes 40 Occupational Therapy Visit Comments Patient Comments My back and right hip are really hurting. Patient/Caregiver Goals To go home. OT Pain Assessment Pain When Pain Assessed During Mobility Pain Present Pain Present Pain Reported Location Back Intensity 9 Scale Used Numeric (1 - 10) Description Spasm M4 OT- IP ADL's Start: 12/05/18 11:38 Freq: Status: Active Protocol: Document 12/05/18 11:39 CGR (Rec: 12/05/18 11:58 CGR [email or web address]) OT [id number] General Evaluation Self-Feeding Ability Independent OT ADL-Grooming General Evaluation Grooming Ability Standby Assistance Areas Needing Assistance Combing/Brushing Hair Face Washing Comments OT Grooming Comments Standing at sink with 2ww. OT ADL-Oral Care General Eval Oral Care Ability Standby Assistance Areas of Assistance Brushing Teeth Comments Oral Care Comments Brushed teeth OT ADL-Dressing General Eval Upper Body Dressing Ability Standby Assistance Lower Body Dressing Ability Total Assistance Areas Needing Assistance Retrieving/Set-up of Clothing Socks OT ADL-Toileting General Evaluation Toileting Ability Standby Assistance Comments OT Toileting Comments seated on toielt OT ADL-Bathing Comments OT Bathing Comments Not performed M5 OT- IP IADL's Start: 12/05/18 11:38 Freq: Status: Active Protocol: Document 12/05/18 11:39 CGR (Rec: 12/05/18 11:58 CGR [email or web address]) OT-Instrumental Activities of Daily Living Deficits IADL Deficits Identified Deficits Home Safety Awareness Awareness of Need for Assistance at Home Good Awareness Ability to Problem Solve Emergency Able to Problem Solve Situations Medication Management Medication Management No Deficits Identified Money Management Money Management No Deficits Identified Meal Preparation Meal Preparation Caregiver Provides Assist Agricultural Adviser Agricultural Adviser Caregiver Provides Assist Driving Driving Comments Pt states that she knows she can not drive at this time. M6 OT- IP Functional Cognition Start: 12/05/18 11:38 Freq: Status: Active Protocol: Document 12/05/18 11:39 CGR (Rec: 12/05/18 11:58 CGR [email or web address]) Cognitive Factors Limiting Selfcare Function Cognitive Ability Level of Alertness Alert Patient Orientation Name Age Birthday Month Date Year Day of Week Place Situation Attention Span Ability Capable of Focused Attention Capable of Sustained Attention Ability to Follow Commands Able to Follow Multi-Step Commands Memory Description Immediate Intact Short Term Intact Correction Intact Working Intact Safety Awareness No Deficits Noted Problem Solving Ability No deficits Noted Executive Function Ability No Deficits Noted Abstract Thinking Ability No Deficits Noted OT- Vision and Hearing OT- Hearing Assessment OT- Hearing Assessment WFL OT- Vision Assessment Visual Acuity Glasses For Reading Visual Attentiveness WFL Occular Pursuits WFL Visual Convergence WFL Visual [place] WFL M7 OT- IP Mobility and Balance Start: 12/05/18 11:38 Freq: Status: Active Protocol: Document 12/05/18 11:39 CGR (Rec: 12/05/18 11:58 CGR [email or web address]) OT-Transfer Assessment Sit to and From Stand Sit to and from Stand Contact Guard Assistance Transfers Transfer Ability Contact Guard Assistance Technique Transfer Destination Chair Toilet Devices Transfer Assistive Devices Gait Belt Front Wheeled Walker Comments Mobility Comments Pt states increased pain to the R hip with movement. OT- Gait Assessment Gait Gait Assistance Required: Contact Guard Assist Assistive Devices Assistive Device Gait Belt Front Wheeled Walker OT- Balance Assessment Sitting Balance and Reactions Static Sitting Balance Ability Normal Dynamic Sitting Balance Ability Normal Standing Balance and Reactions Static Standing Balance Ability Normal Dynamic Standing Balance Ability Normal M8 OT- IP Objective Assessments Start: 12/05/18 11:38 Freq: Status: Active Protocol: Document 12/05/18 11:39 CGR (Rec: 12/05/18 11:58 CGR [email or web address]) OT Gross Range of Motion Upper Extremity Range of Motion Assessment Within Functional Limits OT Strength Upper Extremity Strength Assessment Within Functional Limits Comments Strength Comments B shlds not tested d/t pain to the back with holding them in place. OT- Coordination Assessment Upper Extremity Finger to Nose Test Within Functional Limits Finger Tapping Test Within Functional Limits OT-Muscle Tone Assessment Muscle Tone WNL Yes OT Sensation Assessment Edema Edema Absent M9 OT- IP Assessment and Plan Start: 12/05/18 11:38 Freq: Status: Active Protocol: Document 12/05/18 11:39 CGR (Rec: 12/05/18 11:58 CGR [email or web address]) OT Summary Assessment and Plan Potential Rehabilitation Potential Excellent Analytic Complexity at Evaluation High Summary OT Impairments Pain Range of Motion Balance Functional Cognition Functional Mobility Grooming Dressing Toileting Bathing Toilet Transfers Shower Transfers Assessment Summary Pt tolerated session well but presents with SOB with activity and significant pain. Pt will benefit from continued OT services and will need LB dressing with AD to avoid back irritation and safety with a 2ww. Recommend d /c to SNF. Goals Grooming Goal Independent Dressing Goal Independent Pepper Picker Sock Aid Toileting Goal Independent Bathing Goal Independent Toilet Transfer Goal Independent Shower Transfer Goal Independent Days to Meet Goals 10 Frequency of Treatment Frequency Of Treatment Once a Day Treatment Plan OT Treatment Plan ADL Training Functional Mobility Therapeutic Exercises Patient/Family Education Discharge Planning Other Treatment Recommendations and Next LB dressing training with DME Treatment Focus Discharge Recommendations OT Discharge Recommendations SNF Rehab Home Equipment Needs TBD
--- NOTE | 2018-12-05 12:04 | DI.MRI.S_ITS ---
PROCEDURE: MR LUMBAR SPINE WO/W CON INDICATIONS: back pain r/o osteo vs. discitis TECHNIQUE: Noncontrast sagittal T1 spin echo and T2 fast spin echo, sagittal STIR, axial T1 and T2 fast spin echo through the lumbar spine. In cases with scoliosis, additional coronal T2 fast spin echo may be performed. After the administration of contrast, sagittal and axial T1 spin echo with fat saturation through the lumbar spine. COMPARISON: [facility], CR, XR LUMBAR SPINE 2-3V, 11/28/2018, 12:28. [facility], CT, CT LUMBAR SPINE WO CON, 12/02/2018, 15:31. FINDINGS: Image quality: Excellent. Alignment and curvature: Straightening of the normal lordotic curvature. Marrow: L1 compression fracture with mild height loss is again noted, with no interval change since 12/02/18. There is extensive marrow edema and reactive enhancement. Low signal horizontally oriented fracture line is noted. No paraspinal mass or abnormal enhancement Spinal cord: Conus medullaris terminates at the L1 level. Visualized spinal cord demonstrates normal signal, without suspicious enhancement. Paraspinous soft tissues: No paravertebral masses or abnormal enhancement. L1-L2: Broad-based posterior disc bulge and bilateral facet arthropathy. There is also dorsal epidural lipomatosis. Moderate canal stenosis. Mild partial effacement of both lateral recesses. There is symmetric appearance. Mild bilateral foraminal narrowing. L2-L3: Broad-based posterior disc bulge and bilateral facet arthropathy. Mild dorsal epidural lipomatosis. Mild central canal narrowing. There is mild partial effacement of both lateral recesses although left slightly greater than right. No definite foraminal stenosis L3-L4: Broad-based posterior disc bulge and bilateral facet disease. Dorsal epidural lipomatosis and ligamentum flavum hypertrophy. There is severe canal stenosis. Moderate effacement of both lateral recesses with symmetric appearance. Severe left foraminal stenosis with minimal if any nerve root compression. Mild to moderate right foraminal narrowing. L4-L5: Broad-based posterior disc bulge bilateral facet arthropathy. Dorsal epidural lipomatosis is present. There is moderate central canal narrowing. Moderate effacement of both lateral recesses with symmetric appearance, and possible minimal nerve root compression. L5-S1: Broad-based posterior disc bulge with superimposed left paracentral disc protrusion and bilateral facet arthropathy. No central canal stenosis. Moderate partial effacement of the left lateral recess. The right lateral recess appears patent. Possible mild compression of the descending left S1 nerve root. IMPRESSION: L1 compression fracture. No evidence of discitis/osteomyelitis. Vertebral body marrow edema and reactive enhancement is present in keeping with acute or subacute age. Diffuse spondylosis and facet arthropathy as above with severe canal stenosis seen at L3-L4 Multilevel bilateral foraminal narrowing as detailed above by spinal level. Dictated by: Chris Lal M.D. on 12/05/2018 at 12:44 Approved by: Chris Lal M.D. on 12/05/2018 at 12:59
--- NOTE | 2018-12-05 12:42 | PC.NURSE ---
1240 Pt returned from having MRI. Pt cont to c/o back pain/spasms, will medicate now.
--- NOTE | 2018-12-05 13:17 | P.PN_ITS ---
Subjective Date Patient Seen: 12/05/18 Interval history: The patient continues to have persistent and significant back pain. She did report some rest with the addition of Valium 2.5 twice daily. The Lortab 5 mg q.6 as needed does not appear to be helping. She does have IV morphine written for pain. She was seen in consultation by Dr. Briceno who recommended MRI of her spine. Patient will undergo MRI today. Her white count was mildly elevated 11.8 her CRP is elevated at 1.7 her ESR is normal. Blood cultures have been obtained. Will evaluate for possible diskitis and or osteomyelitis. The patient has no shortness of breath. Exam Vital Signs (past 8 hours): - 12/05/18 08:15 12/05/18 11:40 Temperature 97.6 F 97.7 F Pulse Rate 72 65 Respiratory Rate 18 18 Blood Pressure 140/88 124/83 Pulse Oximetry 96 99 Fraction of Inspired Oxygen 21 Oxygen Delivery Method Room Air Oxygen Flow Rate 0 Narrative Exam Narrative: Ill appearing female uncomfortable lying in bed Lungs: Clear to auscultation Cardiac exam: Irregularly irregular normal S1-S2 with a 2/6 systolic ejection Abdomen: Soft and nontender Extremities: Trace edema Back: Tenderness over the mid back air Objective Labs Result Diagrams: 12/04/18 17:15 12/05/18 06:02 Labs: Laboratory Results - last 24 hr 12/04/18 12/04/18 12/05/18 17:15 17:15 06:02 WBC 11.8 H RBC 5.12 Hgb 13.3 Hct 41.4 MCV 80.8 MCH 26.1 MCHC 32.2 RDW 17.0 H Plt Count 294 Neut % (Auto) 81.4 H Lymph % (Auto) 11.3 L [place] % (Auto) 6.4 Eos % (Auto) 0.5 L Baso % (Auto) 0.4 Neut # (Auto) 9600 H Lymph # (Auto) 1300 [place] # (Auto) 800 Eos # (Auto) 100 Baso # (Auto) 100 ESR 11 Sodium 135 L Potassium 3.5 Chloride 97 L Carbon Dioxide 32 BUN 11 Creatinine 0.60 Estimated GFR > 60.0 BUN/Creatinine Ratio 18.3 Glucose 108 Calcium 8.7 C-Reactive Protein 1.7 H Assessment & Plan (1) Back pain: Problem details: Acute on chronic, patient with facet joint arthropathy of her lumbar spine, she also has spinal stenosis, and a lumbar compression fracture involving L1. There is no acute issue identified. No further imaging studies needed. Patient is not a candidate for kyphoplasty. Will continue physical therapy, pain control, and anticipate discharge to SNF for rehab as she recovers. Await MRI results. Will discuss with Dr. Briceno Current visit: Yes Status: Acute (2) Right hip pain: Problem details: Right hip pain, likely referred from her spine. Will continue PT and pain regimen Patient with significant hip pain with movement. With added Valium, increased her Lortab, and added as needed morphine. She will continue with PT and OT and we expect she will go to SNF at discharge. Current visit: Yes Status: Acute (3) Hypothyroid: Problem details: Chronic, continue normal meds Current visit: Yes Status: Acute (4) Chronic atrial fibrillation: Problem details: Paroxysmal atrial fibrillation, present on admission, rate currently controlled. Will continue current medication Current visit: Yes Status: Acute (5) H/O prosthetic aortic valve replacement: Problem details: TAVR 12/05/2018 Patient is on a therapeutic dose of Coumadin and will continue same. Current visit: No Status: Acute (6) Acute CHF: Problem details: Patient presents with acute decompensated congestive heart failure. She has preserved systolic function. She has had excellent response with diuresis but will need to continue diuresis given her persistent lower extremity edema. Will switch to oral Lasix at 60 mg per day. Qualifiers: Heart failure type: unspecified Qualified Code(s): I50.9 - Heart failure, unspecified Current visit: Yes Status: Acute Assessment & Plan narrative: Will await Dr. Bowden evaluation anticipate discharge to SNF once her pain has been controlled Quality VTE Deep Vein Thrombosis/Pulmonary Embolism Present on Admission: No
--- NOTE | 2018-12-05 14:50 | PT.IPTN ---
Current Diagnoses Hypothyroidism, unspecified (12/02/18) Obstructive sleep apnea (adult) (pediatric) (12/02/18) Chronic atrial fibrillation (12/02/18) Heart failure, unspecified (12/02/18) Noninfective gastroenteritis and colitis, unspecified (12/02/18) Pain in right hip (12/02/18) Dorsalgia, unspecified (12/02/18) Presence of prosthetic heart valve (12/02/18) Physical Therapy Treatment Note M2 PT-IP Current Condition Start: 12/02/18 08:54 Freq: NEEDED Status: Active Protocol: Document 12/02/18 15:40 RS (Rec: 12/02/18 15:42 RS [id number]) Physical Therapy Current Condition Current Condition Evaluation Date 12/02/18 Treatment Diagnosis impaired mobility Onset Date 11/30/18 M3 PT-IP Subjective Start: 12/02/18 08:54 Freq: NEEDED Status: Active Protocol: Document 12/05/18 14:50 GGD (Rec: 12/05/18 16:53 GGD [id number]) Subjective Physical Therapy Visit Type Type Treatment Note Visit Start Time 14:20 Visit Stop Time 14:50 Total Visit Minutes 30 Number of AIRPORT TRAFFIC CONTROLLER Visits 4 Physical Therapy Visit Comments Patient Comments Pt willing to work with therapy. Therapy Pain Assessment Pain When Pain Assessed During Mobility Pain Present Pain Present Pain Reported Location Back Intensity 7 M4 PT-IP Mobility and Gait Start: 12/02/18 08:54 Freq: NEEDED Status: Active Protocol: Document 12/05/18 14:50 GGD (Rec: 12/05/18 16:53 GGD [id number]) PT-Bed Mobility Assessment Rolling Type of Rolling Log Rolling Roll to Right Level of Assist Standby Assistance Supine to Sit Supine to Sit Standby Assistance Scooting Scooting to Edge of Bed Standby Assistance Scooting Up and Down in Bed Standby Assistance PT-Transfer Assessment Sit to and From Stand Sit to and from Stand Standby Assistance Equipment Transfer Assistive Device Gait Belt Front Wheeled Walker Transfers Transfer Destination Chair Transfer Ability Level of Assist Standby Assistance Gait Assessment Gait Gait Assistance Required: Standby Assistance Distance (Feet) 160 Able to Maintain Weight Bearing Status Yes During Gait Assistive Devices Assistive Device Gait Belt Front Wheeled Walker Orthotic/Prosthetic Devices or Brace: Yes Gait Deviations General Gait Pattern Antalgic Decreased Stride Length Flexed Trunk Factors Limiting Gait Function Factors Limiting Gait Function Pain M5 PT-IP Objective Assessments Start: 12/02/18 08:54 Freq: NEEDED Status: Active Protocol: Document 12/02/18 15:53 RS (Rec: 12/02/18 16:07 RS [id number]) Orientation Orientation/Cognition Level of Alertness Alert Orientation Name Age Birthday Month Date Year Day of Week Place Situation Language Function Ability No Deficits Noted Safety Awareness Understands Safety Issues Memory Description No Deficits Noted Gross Range of Motion Upper Extremity ROM Assessment Within Functional Limits Lower Extremity ROM Assessment Within Functional Limits Strength Upper Extremity Strength Assessment Within Functional Limits Lower Extremity Strength Assessment Right Impaired Comments Strength Comments pain related weakness for all hip motions, slightly more profound with hip flex and knee ext than other RLE muscle groups M6 PT-IP Treatment Start: 12/02/18 08:54 Freq: NEEDED Status: Active Protocol: Document 12/05/18 14:50 GGD (Rec: 12/05/18 16:53 GGD [id number]) Physical Therapy Treatment Exercises Exercises Ankle Pumps Education Education Provided Precautions Brace Education [place] Patient Equipment Issued Equipment Type and Company TLSO brace M7 PT-IP Assessment and Plan Start: 12/02/18 08:54 Freq: NEEDED Status: Active Protocol: Document 12/05/18 14:50 GGD (Rec: 12/05/18 16:53 GGD [id number]) PT Summary Assessment and Plan Summary Assessment Summary Pt was able to progress gait distance. She had increase in pain with all mobility. Pt good tolerance to TLOS brace. Frequency of Treatment Frequency Of Treatment Twice a Day Treatment Plan Physical Therapy Treatment Plan Bed Mobility Training Transfer Training Gait Training Therapeutic Exercise Balance Retraining Post Op Education Discharge Planning Hot or Cold Pack Neuromuscular Re-ed Coordination Retraining Manual Therapy Recommendations To Nursing Amount of Assist Needed Standby Assistance 1 Person Assist Discharge Recommendations PT Discharge Recommendations Home with Assistance Home Health
[2018-12-05] MEDS: WARFARIN 3 MG TABLET PO (17:09)
[2018-12-05] MEDS: ATORVASTATIN 20 MG TABLET 80 MG PO (21:53)
[2018-12-06 01:20] VITALS: BP 116/59; PULSE 66; RESP 19; TEMP 36.4; O2SAT 98
[2018-12-06] MEDS: HYDROCODONE/ACET 5/325 TABLET 1 TAB PO ×3 (01:47→11:35)
--- NOTE | 2018-12-06 04:06 | PC.NURSE ---
Assumed care of pt at 2300 on 12/05/18. Pt sleeping during hand-off. CPAP on. Awakens to voice and touch. A/O, RA sats 95-98%. CMS+. Declines use back brace. State it doesn't fit right and there is a metal piece that hurts. Medicated with 5/325 Earth at 0150. Pt sleeping upon reassessment. Calling appropriately for needs. Bed alarm on for safety.
[2018-12-06] MEDS: LEVOTHYROXINE 100 MCG TABLET PO (06:13)
[2018-12-06 06:23] VITALS: BP 132/73; PULSE 63; RESP 19; TEMP 36.5; O2SAT 94
[2018-12-06] MEDS: diazePAM 5 MG TABLET 2.5 MG PO (07:30)
[2018-12-06 07:32] VITALS: BP 155/66; PULSE 65; RESP 18; TEMP 36.5; O2SAT 94
[2018-12-06 07:54] VITALS: O2SAT 97
[2018-12-06] MEDS: FLUTICASONE/SALMETEROL 250/50 14 PUFF DISKUS INH (09:14)
[2018-12-06 09:15] VITALS: PULSE 89; RESP 14; O2SAT 97
[2018-12-06] MEDS: POTASSIUM CHLORIDE 20 MEQ/15 ML UDC 15 MEQ PO (09:29)
[2018-12-06] MEDS: BUDESONIDE 3 MG CAP 9 MG PO (09:30)
[2018-12-06] MEDS: FUROSEMIDE 20 MG TABLET 60 MG PO (09:30)
[2018-12-06] MEDS: METOPROLOL ER 50 MG TABLET PO (09:30)
[2018-12-06] MEDS: SENNOSIDES 8.6 MG TABLET 17.2 MG PO (09:30)
[2018-12-06] MEDS: CLOPIDOGREL 75 MG TABLET PO (09:30)
[2018-12-06] MEDS: SODIUM CHLORIDE 0.9% FLUSH 10 ML IV (09:31)
[2018-12-06] MEDS: LIDOCAINE PATCH 1 EACH ADH..PATCH TOP (09:32)
[2018-12-06] MEDS: CYCLOBENZAPRINE 10 MG TABLET PO (09:45)
--- NOTE | 2018-12-06 11:13 | P.DS_ITS ---
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 Patient also has associated complaint of abdominal distention with history of IBS making it difficult to take deep breaths further impacting her complaint of orthopnea. She Has been under card iology surveillance and has just finished cardiac rehab. She is due for repeat echo in 1 week. She denies complaints of recent colder illness with no headaches or dizziness, nasal congestion or sore throat. She has had no chest pain or palpitations and denies cough. She reports no nausea vomiting but will take Zantac for heartburn as needed. She has history of irritable bowel syndrome and routinely uses daily Imodium. She reports no blood per rectum. She denies dysuria. Upon arrival in the ER the patient is afebrile with temperature of 97.7?, heart rate of 57, blood pressure 173/91, respirations 20 saturating at 100% on room air. Twelve lead EKGs obtained which demonstrates atrial fibrillation with a slow ventricular response at [address] or T-wave changes. Chest x-rays taken revealing pulmonary vascular congestion. CBC is found to be within normal limits as are her electrolytes. Her BUN is 21 and creatinine is 0.7 with a nonfasting glucose of 89. The patient is on warfarin therapy in a varying dose is found to be supratherapeutic at 6.7. Patient has a low total CK at 25 with a troponin of less than 0.012 and a BNP elevated at 0 452. In the ER she received Lasix 40 mg IV following consult with cardiology who requests the patient be admitted diuresed and received an echocardiogram. Discharge Providers Date of admission: 12/02/18 02:39 Discharge Date: 12/06/18 Primary care physician: Iggy Trujillo MD Consults: 12/02/18 03:34 Consult to Dietitian, Adult Routine Comment: Reason For Exam: Supratherapeutuc INR on warfarin Consult to Discharge Planning Routine Comment: Consult to Physical Therapy Evaluate & Treat Comment: Right hip pain, acute CHF, finished card rehab Physician Instructions: Evaluate and Treat 12/04/18 13:36 Consult to Occupational Therapy Evaluate & Treat Comment: Physician Instructions: Evaluate and treat 12/05/18 14:18 Consult to Physical Therapy Evaluate & Treat Comment: LUCY cho Physician Instructions: Evaluate and Treat Discharge provider: Kishor Cifuentes MD Summary Discharge Diagnosis: (1) Back pain: (2) Right hip pain: (3) Hypothyroid: (4) Chronic atrial fibrillation: (5) H/O prosthetic aortic valve replacement: (6) Acute CHF: Hospital Course: (1) Back pain: Problem details: Acute on chronic, patient with facet joint arthropathy of her lumbar spine, she also has spinal stenosis, and a lumbar compression fracture involving L1. There is no other acute issue identified. No further imaging studies needed. Patient is not a candidate for kyphoplasty. Will continue physical therapy, pain control, and anticipate discharge to SNF for rehab today. Reviewed MRI results and seen by Dr. Lu. AYALA to be used. Current visit: Yes Status: Acute (2) Right hip pain: Problem details: Right hip pain, likely referred from her spine. Will continue PT and pain irvin men at the long term facility. Patient with significant hip pain with movement. With added Valium, increased her Lortab, and added as needed morphine. She will continue with PT and OT at the long term facility. Current visit: Yes Status: Acute (3) Hypothyroid: Problem details: Chronic, continue normal meds Current visit: Yes Status: Acute (4) Chronic atrial fibrillation: Problem details: Paroxysmal atrial fibrillation, present on admission, rate currently controlled. Will continue current medication Current visit: Yes Status: Acute (5) H/O prosthetic aortic valve replacement: Problem details: TAVR 2019 Patient is on a therapeutic dose of Coumadin and will continue same. Current visit: No Status: Acute (6) Acute CHF: Problem details: Patient presents with acute decompensated congestive heart failure. She has preserved systolic function. She has had excellent response with diuresis but will need to continue diuresis given her persistent lower extremity edema. Will resume home Lasix dose of 40 mg per day. Status at Discharge Cognitive/behavioral status at discharge: oriented Functional status at discharge: uses cane/walker Overall status at discharge: patient is progressing back to baseline Time Spent with Patient Greater than 30 minutes Exam Vital Signs (past 8 hours): - 12/06/18 06:23 12/06/18 07:32 12/06/18 07:54 Temperature 97.7 F 97.7 F Pulse Rate 63 65 Respiratory Rate 19 18 Blood Pressure 132/73 155/66 H Pulse Oximetry 94 94 97 12/06/18 09:15 Temperature Pulse Rate 89 Respiratory Rate 14 Blood Pressure Pulse Oximetry 97 Fraction of Inspired Oxygen 21 Oxygen Delivery Method Room Air Oxygen Flow Rate 0 Narrative Exam Narrative: She is alert and oriented x3. No apparent distress. She gives mixed messages about her contrasting desire to go home or to go to the long term facility for rehab. Physical therapy reports that she has been able to stand and move in the room with standby assistance. She has a very raspy voice. Heart is regular rate and rhythm without murmur. Lungs are clear to auscultation bilaterally. Extremities have no ankle edema. Objective Labs Result Diagrams: 12/04/18 17:15 12/05/18 06:02 Discharge Plan Discharge Plan Patient Disposition: SNF Transfer to: [facility] Under care of provider: Dr. James and Dr. Trujillo Transportation: Wheelchair Discharge comment: Wear TLSO as much as tolerated, as directed by Dr. Bowden. I certify the postop hospital long term care is medically necessary on a continuing basis for any conditions for which he/ she received care during this hospitalization.: Yes The receiving facility has agreed to accept transfer and provide medical treatment.: Yes Discharge Med Rec/Prescriptions Prescriptions: New cyclobenzaprine 10 mg Tablet 10 mg PO Q6HR PRN (Reason: Spasms) Qty: 30 RF: 0 sennosides [senna] 8.6 mg Tablet 17.2 mg PO BID Qty: 20 RF: 0 hydrocodone-acetaminophen 5-325 mg Tablet 0.5 tab PO Q6HR PRN (Reason: Pain, Moderate (4-6)) Qty: 30 RF: 0 hydrocodone-acetaminophen 5-325 mg Tablet 1 tab PO Q4HR PRN (Reason: Pain, Moderate (4-6)) Qty: 30 RF: 0 lidocaine 5 % Adhesive Patch,Medicated 1 ea topical 1900 Qty: 30 RF: 0 diazepam 5 mg Tablet 2.5 mg PO BID Qty: 20 RF: 0 Continued triamcinolone acetonide [Nasacort] 55 MCG/PUFF aerosol,spray 1 puff Intranasal QDAYP PRN (Reason: Congestion) Qty: 0 RF: 0 levothyroxine 112 MCG tablet 0.1 mg PO QDAY Qty: 0 RF: 0 fluticasone propion-salmeterol [Advair Diskus] 250 MCG/50 MCG blister with device 1 puff INH BID Qty: 0 RF: 0 acetaminophen [Tylenol Extra Strength] 500 MG tablet 500 mg PO Q6HP PRN (Reason: Pain, Mild) Qty: 0 RF: 0 [ALAWAY 0.025%] 1 drp OPHTH BID Qty: 0 RF: 0 atorvastatin 80 mg tablet 80 mg PO BEDTIME RF: 0 nystatin 100,000 unit/mL suspension 5 ml PO QID RF: 0 cetirizine [Zyrtec] 10 mg Tablet 10 mg PO DAILY PRN (Reason: Allergy Symptoms) RF: 0 ketotifen fumarate [Alaway] 0.025 % (0.035 %) Drops 1 drp ophthalmic (eye) BID RF: 0 warfarin 2 mg tablet 3 mg PO DAILY RF: 0 furosemide 20 mg tablet 40 mg PO DAILY RF: 0 levalbuterol tartrate [Xopenex HFA] 45 mcg/actuation Hfa Aerosol Inhaler 1 puff INHALATION Q4H PRN (Reason: Shortness Of Breath) RF: 0 Vitamin D3 3,000 unit tablet 1 tab PO DAILY RF: 0 budesonide 3 MG capsule,delayed,extend.release 9 mg PO QDAY RF: 0 nitroglycerin 0.3 mg Tablet, Sublingual 0.6 mg SUBLINGUAL Q5-15M PRN (Reason: Chest Pain) RF: 0 potassium chloride 20 mEq/15 mL Liquid 20 meq PO DAILY RF: 0 diphenoxylate-atropine 2.5 MG/0.025 MG tablet 1 tab PO Q6HP PRN (Reason: Diarrhea) Qty: 30 RF: 0 diphenoxylate-atropine [Lomotil] 2.5-0.025 mg Tablet 1 tab PO Q6-8H PRN (Reason: Diarrhea) Qty: 30 RF: 0 diazepam [Valium] 5 MG tablet 5 mg PO Q8HP PRN (Reason: Anxiety) Qty: 30 RF: 0 Respironics [employer] Auto CPAP Qty: 1 RF: 0 metoprolol succinate 50 mg tablet extended release 24 hr 50 mg PO DAILY RF: 0 mirtazapine 7.5 mg tablet 7.5 mg PO DAILY RF: 0 ranitidine HCl [Zantac] 150 mg tablet 150 mg PO DAILY RF: 0 clopidogrel [Plavix] 75 mg tablet 75 mg PO DAILY RF: 0 Other Ambulatory Orders: Prothrombin Time INR (Routine) Timeframe: 1 Week Location: Laboratory Ordered By: Kishor Cifuentes Follow up/Referrals: Iggy Trujilol MD [Primary Care Provider] - Discharge Health Status Brief summary of current health status: Follow up with Dr. Bowden in 2 weeks. Provider Discharge Instructions Diet: Diet as Tolerated and Regular Liquid consistency: Normal/Thin Food texture: Regular [facility] Reason for rehabilitation: Recovery r/t decondition Rehab type: Physical therapy and Occupational therapy Restrictions to mobility: TLSO brace Visit Report/Discharge Packet Instructions: Vertebral Compression Fracture, DI for Heart Failure, DI for Vertebral Fracture Discharge Data Primary Care Provider: Iggy Trujillo V Attending Provider: Walter Oliva Admit Date/Time: 12/02/18 02:39 Quality VTE Deep Vein Thrombosis/Pulmonary Embolism Present on Admission: No
--- NOTE | 2018-12-06 11:33 | PT.IPTN ---
Current Diagnoses Hypothyroidism, unspecified (12/02/18) Obstructive sleep apnea (adult) (pediatric) (12/02/18) Chronic atrial fibrillation (12/02/18) Heart failure, unspecified (12/02/18) Noninfective gastroenteritis and colitis, unspecified (12/02/18) Pain in right hip (12/02/18) Dorsalgia, unspecified (12/02/18) Presence of prosthetic heart valve (12/02/18) Physical Therapy Treatment Note M2 PT-IP Current Condition Start: 12/02/18 08:54 Freq: NEEDED Status: Active Protocol: Document 12/02/18 15:40 RS (Rec: 12/02/18 15:42 RS [id number]) Physical Therapy Current Condition Current Condition Evaluation Date 12/02/18 Treatment Diagnosis impaired mobility Onset Date 11/30/18 M3 PT-IP Subjective Start: 12/02/18 08:54 Freq: NEEDED Status: Active Protocol: Document 12/06/18 11:00 HH (Rec: 12/06/18 11:33 [id number]) Subjective Physical Therapy Visit Type Type Treatment Note Visit Start Time 11:00 Visit Stop Time 11:20 Total Visit Minutes 20 Notes Per RN , pt refused to wear TLSO due to discomfort Number of HAT LINER Visits 0 Physical Therapy Visit Comments Patient Comments at bedside. Pt willing to work with therapy and learn how to jarrod TLSO brace Therapy Pain Assessment Pain When Pain Assessed During Mobility Pain Present Pain Present Pain Reported Location Back Intensity 7 M4 PT-IP Mobility and Gait Start: 12/02/18 08:54 Freq: NEEDED Status: Active Protocol: Document 12/06/18 11:00 HH (Rec: 12/06/18 11:33 [id number]) PT-Bed Mobility Assessment Rolling Type of Rolling Log Rolling Roll to Right Level of Assist Standby Assistance Supine to Sit Supine to Sit Standby Assistance Scooting Scooting to Edge of Bed Standby Assistance Scooting Up and Down in Bed Standby Assistance PT-Transfer Assessment Sit to and From Stand Sit to and from Stand Standby Assistance Equipment Transfer Assistive Device Gait Belt Front Wheeled Walker Transfers Transfer Destination Chair Transfer Ability Level of Assist Standby Assistance Gait Assessment Gait Gait Assistance Required: Standby Assistance Distance (Feet) 200 Able to Maintain Weight Bearing Status Yes During Gait Assistive Devices Assistive Device Gait Belt Front Wheeled Walker Orthotic/Prosthetic Devices or Brace: Yes Gait Deviations General Gait Pattern Antalgic Decreased Stride Length Flexed Trunk Factors Limiting Gait Function Factors Limiting Gait Function Pain M5 PT-IP Objective Assessments Start: 12/02/18 08:54 Freq: NEEDED Status: Active Protocol: Document 12/02/18 15:53 RS (Rec: 12/02/18 16:07 RS [id number]) Orientation Orientation/Cognition Level of Alertness Alert Orientation Name Age Birthday Month Date Year Day of Week Place Situation Language Function Ability No Deficits Noted Safety Awareness Understands Safety Issues Memory Description No Deficits Noted Gross Range of Motion Upper Extremity ROM Assessment Within Functional Limits Lower Extremity ROM Assessment Within Functional Limits Strength Upper Extremity Strength Assessment Within Functional Limits Lower Extremity Strength Assessment Right Impaired Comments Strength Comments pain related weakness for all hip motions, slightly more profound with hip flex and knee ext than other RLE muscle groups M6 PT-IP Treatment Start: 12/02/18 08:54 Freq: NEEDED Status: Active Protocol: Document 12/06/18 11:00 (Rec: 12/06/18 11:33 [id number]) Physical Therapy Treatment Education Education Provided Precautions Brace Education [place] Patient Equipment Issued Equipment Type and Company TLSO brace Other Treatments Other Treatment Performed Demonstration of jarrod & doff TLSO brace on CG and pt. M7 PT-IP Assessment and Plan Start: 12/02/18 08:54 Freq: NEEDED Status: Active Protocol: Document 12/06/18 11:00 HH (Rec: 12/06/18 11:33 [id number]) PT Summary Assessment and Plan Summary Assessment Summary Pt c/o discomfort last night with sternal stabilizer. Adjustment has made and re- demonstration of jarrod & doff TLSO brace on CG and pt today. Pt will be d/c to [facility] today for cont rehab to improve mobility Frequency of Treatment Frequency Of Treatment Twice a Day Treatment Plan Physical Therapy Treatment Plan Bed Mobility Training Transfer Training Gait Training Therapeutic Exercise Balance Retraining Post Op Education Discharge Planning Hot or Cold Pack Neuromuscular Re-ed Coordination Retraining Manual Therapy Recommendations To Nursing Amount of Assist Needed Standby Assistance 1 Person Assist Discharge Recommendations PT Discharge Recommendations Home with Assistance Home Health
--- NOTE | 2018-12-06 12:01 | PC.NURSE ---
REPORT GIVEN TO JESSICA AT [facility]. ALL QUESTIONS ANSWERED TO SATISFACTION. HANDOUTS PROVIDED TO PATIENT. LAST DOSES OF ALL NARCOTICS AND MUSCLE RELAXERS PROVIDED IN REPORT. IV DC'D INTACT. PACKET READY TO SEND W/ PATIENT WHEN SHE IS PICKED UP.
--- NOTE | 2018-12-06 12:04 | CM.DPC ---
DCP Cont: Faxed discharge packet (signed meds, prescriptions, and PASSR) to [facility] at fax # [phone]. Fax confirmation and PASSR scanned in. Brittni Bear Assistant Director Of Plant Operations
--- NOTE | 2018-12-06 12:41 | OT.IP.TRT ---
Current Diagnoses Hypothyroidism, unspecified (12/02/18) Obstructive sleep apnea (adult) (pediatric) (12/02/18) Chronic atrial fibrillation (12/02/18) Heart failure, unspecified (12/02/18) Noninfective gastroenteritis and colitis, unspecified (12/02/18) Pain in right hip (12/02/18) Dorsalgia, unspecified (12/02/18) Presence of prosthetic heart valve (12/02/18) Occupational Therapy Treatment Note M2 OT-IP Current Condition Start: 12/05/18 11:38 Freq: Status: Active Protocol: Document 12/05/18 11:39 CGR (Rec: 12/05/18 11:58 CGR [email or web address]) Occupational Therapy Current Condition Current Condition Evaluation Date 12/05/18 Treatment Diagnosis CHF exacerbation M3 OT- IP Subjective and Pain Start: 12/05/18 11:38 Freq: Status: Active Protocol: Document 12/06/18 12:30 CCC (Rec: 12/06/18 12:41 [facility] [id number]) OT- Subjective Occupational Therapy Visit Type Type Treatment Note Visit Start Time 12:10 Visit Stop Time 12:20 Total Visit Minutes 10 Occupational Therapy Visit Comments Patient Comments Pt getting ready to eat , but states TLSO not comfortable and readjusted. OT Pain Assessment Pain When Pain Assessed During Mobility Pain Present Pain Present Pain Reported M4 OT- IP ADL's Start: 12/05/18 11:38 Freq: Status: Active Protocol: Document 12/06/18 12:30 CCC (Rec: 12/06/18 12:41 [facility] [id number]) OT ADL-Dressing Comments OT Dressing Comments Pt and needing cues to readjust TLSO for pt. Educated important to get her chest up and above the brace, also able to adjust the collar pad lower for comfort. M5 OT- IP IADL's Start: 12/05/18 11:38 Freq: Status: Active Protocol: Document 12/05/18 11:39 CGR (Rec: 12/05/18 11:58 CGR [email or web address]) OT-Instrumental Activities of Daily Living Deficits IADL Deficits Identified Deficits Home Safety Awareness Awareness of Need for Assistance at Home Good Awareness Ability to Problem Solve Emergency Able to Problem Solve Situations Medication Management Medication Management No Deficits Identified Money Management Money Management No Deficits Identified Meal Preparation Meal Preparation Caregiver Provides Assist Hop Sorter Hop Sorter Caregiver Provides Assist Driving Driving Comments Pt states that she knows she can not drive at this time. M6 OT- IP Functional Cognition Start: 12/05/18 11:38 Freq: Status: Active Protocol: Document 12/05/18 11:39 CGR (Rec: 12/05/18 11:58 CGR [email or web address]) Cognitive Factors Limiting Selfcare Function Cognitive Ability Level of Alertness Alert Patient Orientation Name Age Birthday Month Date Year Day of Week Place Situation Attention Span Ability Capable of Focused Attention Capable of Sustained Attention Ability to Follow Commands Able to Follow Multi-Step Commands Memory Description Immediate Intact Short Term Intact Chute Worker Intact Working Intact Safety Awareness No Deficits Noted Problem Solving Ability No deficits Noted Executive Function Ability No Deficits Noted Abstract Thinking Ability No Deficits Noted OT- Vision and Hearing OT- Hearing Assessment OT- Hearing Assessment WFL OT- Vision Assessment Visual Acuity Glasses For Reading Visual Attentiveness WFL Occular Pursuits WFL Visual Convergence WFL Visual [place] WFL M7 OT- IP Mobility and Balance Start: 12/05/18 11:38 Freq: Status: Active Protocol: Document 12/05/18 11:39 CGR (Rec: 12/05/18 11:58 CGR [email or web address]) OT-Transfer Assessment Sit to and From Stand Sit to and from Stand Contact Guard Assistance Transfers Transfer Ability Contact Guard Assistance Technique Transfer Destination Chair Toilet Devices Transfer Assistive Devices Gait Belt Front Wheeled Walker Comments Mobility Comments Pt states increased pain to the R hip with movement. OT- Gait Assessment Gait Gait Assistance Required: Contact Guard Assist Assistive Devices Assistive Device Gait Belt Front Wheeled Walker OT- Balance Assessment Sitting Balance and Reactions Static Sitting Balance Ability Normal Dynamic Sitting Balance Ability Normal Standing Balance and Reactions Static Standing Balance Ability Normal Dynamic Standing Balance Ability Normal M8 OT- IP Objective Assessments Start: 12/05/18 11:38 Freq: Status: Active Protocol: Document 12/05/18 11:39 CGR (Rec: 12/05/18 11:58 CGR [email or web address]) OT Gross Range of Motion Upper Extremity Range of Motion Assessment Within Functional Limits OT Strength Upper Extremity Strength Assessment Within Functional Limits Comments Strength Comments B shlds not tested d/t pain to the back with holding them in place. OT- Coordination Assessment Upper Extremity Finger to Nose Test Within Functional Limits Finger Tapping Test Within Functional Limits OT-Muscle Tone Assessment Muscle Tone WNL Yes OT Sensation Assessment Edema Edema Absent M9 OT- IP Assessment and Plan Start: 12/05/18 11:38 Freq: Status: Active Protocol: Document 12/06/18 12:30 [facility] (Rec: 12/06/18 12:41 [facility] [id number]) OT Summary Assessment and Plan Potential Rehabilitation Potential Good Summary OT Impairments Pain Range of Motion Balance Functional Cognition Functional Mobility Grooming Dressing Toileting Bathing Toilet Transfers Shower Transfers Progress Towards Goals Progressing Toward Goals Assessment Summary Pt being discharged to SNF today. Able to talk to pt for expectations and questions to ask while at rehab. Discharge Recommendations OT Discharge Recommendations Home with Assistance SNF Rehab Other Discharge Recommendations Pt's wanting skilled rehab, as pt hesitate to go.
--- NOTE | 2018-12-06 13:03 | CM.DPC ---
DCP Discharge to SNF Per MD, pt medically stable to d/c to SNF today but unsure if pt and spouse still agreeable with SNF. AZAM met bedside with pt and spouse and explained role and discussed d/c options of home vs SNF. Pt and spouse state that they both feel more comfortable with d/c to [facility] prior to return home safely. SW called [facility] November with admissions and she confirms that they can accept the pt today and provide transport around 1330. AZAM updated MD, RN, USER INTERFACE DEVELOPER, NTL, and pt and spouse and all agreeable. AZAM completed PASRR and SETH Mann kindly faxed d/c packet to [facility] for review. Plan: Patient to d/c to [facility] today via w/c van at 1330 prior to safe return home. RADHA Martin
[2018-12-06 13:14] VITALS: BP 124/66; PULSE 64; RESP 18; O2SAT 96
--- NOTE | 2018-12-06 17:01 | PM.PN.1 ---
Exam Vital Signs (past 8 hours): - 12/06/18 09:15 12/06/18 13:14 Pulse Rate 89 64 Respiratory Rate 14 18 Blood Pressure 124/66 Pulse Oximetry 97 96 Fraction of Inspired Oxygen 21 Oxygen Delivery Method Room Air Oxygen Flow Rate 0 Objective Labs Result Diagrams: 12/04/18 17:15 12/05/18 06:02 Assessment & Plan Assessment & Plan narrative: Patient was seen while doing PT. She is wearing well fitted TLSO. She is ambulating with PT and progressing well. Her pain is still localized in the lower lumbar at lumbosacral junction area with some radiculopathy. Her pain is not the most severe at the upper lumbar where her fx is located. I recommend TLSO brace while sitting, walking, standing. Follow up with me in clinic in 3-4 weeks to follow up on fx and her severe spinal stenosis. Quality VTE Deep Vein Thrombosis/Pulmonary Embolism Present on Admission: No
== END 2018-12-06 13:33 | DRG 292 ==
LOC: ED 12-02 02:34 → AC 12-02 03:29
PROVIDERS: Internal Medicine; Admitting Provider Nurse Practitioner Adult Health; Emergency Provider Emergency Medicine; PCP Internal Medicine; Visit Provider Nurse Practitioner Adult Health
DX: I50.33 Acute on chronic diastolic (congestive) heart failure (principal); D68.61 Antiphospholipid syndrome; Z79.01 Long term (current) use of anticoagulants; G47.33 Obstructive sleep apnea (adult) (pediatric); M48.56XS Collapsed vertebra, not elsewhere classified, lumbar region, sequela of fracture; M48.061 Spinal stenosis, lumbar region without neurogenic claudication; I48.2 Chronic atrial fibrillation; J45.909 Unspecified asthma, uncomplicated; K58.9 Irritable bowel syndrome, unspecified; E03.9 Hypothyroidism, unspecified; G89.29 Other chronic pain; M25.551 Pain in right hip
CPT/HCPCS: 36415; 36591; 71045; 72131; 72158; 72192; 80048; 80053; 80061; 81003; 82550; 83690; 83735; 83880; 84484; 85025; 85610; 85651; 86140; 87040; 93005; 93306; 94640; 94760; 94762; 96374; 97110; 97116; 97161; 97167; 97530; 97535; 99284; J1940; J2270; J3480

== ENCOUNTER → 2018-12-09 07:32 | Outpatient (ROUT) | payer SELFPAY ==
[2018-12-02 03:32] VITALS: BMI 27.1
[2018-12-09 08:28] LABS: Add Manual Diff / Slide Review NO; Basophils Absolute Auto 0 /uL (0-100); Basophils Percent Auto 0.2 % (0-2); Eosinophils Absolute Auto 200 /uL (0-450); Eosinophils Percent Auto 1.5 % (2-4); Hematocrit 36.8 % (36-46); Hemoglobin 12.2 g/dL (12.0-16.0); Lymphocytes Absolute Auto 2000 /uL (1100-4500); Lymphocytes Percent Auto 19.6 % (25-40); Mean Corpuscular HGB Conc 33.2 % (30-36); Mean Corpuscular Hemoglobin 26.7 PG (26-34); Mean Corpuscular Volume 80.5 fL (80-100); Monocytes Absolute Auto 1000 /uL (0-900); Monocytes Percent Auto 9.7 % (3-14); Neutrophils Absolute Auto 7200 /uL (1500-7000); Platelet Count 256 X10^3/uL (150-400); Red Blood Cell Count 4.58 X10^6/uL (4.0-5.2); Red Cell Distribution Width 17.2 % (11.6-14.8); White Blood Cell Count 10.4 X10^3/uL (4.5-11.0)
[2018-12-09 08:40] LABS: INR 2.4 (0.9-1.3); Prothrombin Time 27.7 SECONDS (10.1-12.7)
[2018-12-09 08:51] LABS: BUN Creatinine Ratio 21.4 (6-22); Blood Urea Nitrogen 15 mg/dL (7-17); Calcium 8.6 mg/dL (8.4-10.2); Carbon Dioxide 33 mmol/L (22-32); Chloride 99 mmol/L (98-107); Estimated Glomerular Filt Rate > 60.0 mL/min (>60); Glucose 77 mg/dL (80-110); HEMOLYSIS < 15 (0-50); Potassium 4.2 mmol/L (3.4-5.1); Sodium 138 mmol/L (137-145)
== END ==
PROVIDERS: PCP Internal Medicine; Visit Provider Nurse Practitioner Family
DX: I48.91 Unspecified atrial fibrillation (principal); I25.10 Atherosclerotic heart disease of native coronary artery without angina pectoris
CPT/HCPCS: 36415; 80048; 85025; 85610

== ENCOUNTER → 2019-01-03 10:37 | Outpatient (CLI) | payer MEDICARE, OTHER, SELFPAY ==
[2018-12-02 03:32] VITALS: BMI 27.1
--- NOTE | 2019-01-03 | DI.RAD.S_ITS ---
PROCEDURE: XR LUMBAR SPINE 2-3V INDICATIONS: Wedge compression fracture of first lumbar vertebra, subsequ TECHNIQUE: 3 views of the lumbar spine were acquired. COMPARISON: [facility], CR, XR LUMBAR SPINE 2-3V, 11/28/2018, 12:28. FINDINGS: Bones: 5 [id number] vertebrae are present. Diffuse osteopenia. There is stable bony alignment with persistent loss of lumbar lordosis. Previously described anterior compression fracture of L1 has progressed with mild interval increase in anterior vertebral body height loss and sclerosis of the vertebral body. Remainder of the exam demonstrates stable appearance of moderate multilevel lumbar spondylosis throughout the lumbar spine with disc space narrowing, degenerative endplate changes, and facet arthropathy. Soft tissues: Overlying bowel gas pattern is normal. Vascular calcifications are present. Numerous surgical clips project over the upper right abdomen as before. No suspicious soft tissue calcifications. IMPRESSION: Diffuse osteopenia with mild interval progression in anterior compression fracture of L1 with increased loss of the anterior vertebral body height. Mild sclerosis of the upper half of the L1 vertebral body may represent overlapping trabecula versus reactive changes. Consider further evaluation with advanced imaging using MRI to evaluate marrow signal for acuity and to assist in determination if patient would be a candidate for potential interventional procedure. Moderate multilevel lumbar spondylosis. Dictated by: Landon Steven M.D. on 01/03/2019 at 13:21 Approved by: Landon Steven M.D. on 01/03/2019 at 13:29
== END ==
PROVIDERS: PCP Internal Medicine; Visit Provider Internal Medicine
DX: S32.010D Wedge compression fracture of first lumbar vertebra, subsequent encounter for fracture with routine healing (principal); M85.88 Other specified disorders of bone density and structure, other site; M47.816 Spondylosis without myelopathy or radiculopathy, lumbar region
CPT/HCPCS: 72100

== ENCOUNTER → 2019-01-21 12:53 | Outpatient (CLI) | payer MEDICARE, OTHER, SELFPAY ==
[2018-12-02 03:32] VITALS: BMI 27.1
[2019-01-21 15:59] LABS: BUN Creatinine Ratio 25.7 (6-22); Blood Urea Nitrogen 18 mg/dL (7-17); Carbon Dioxide 35 mmol/L (22-32); Chloride 97 mmol/L (98-107); Estimated Glomerular Filt Rate > 60.0 mL/min (>60); Glucose 79 mg/dL (80-110); HEMOLYSIS < 15 (0-50); Potassium 3.6 mmol/L (3.4-5.1); Sodium 140 mmol/L (137-145)
== END ==
PROVIDERS: PCP Internal Medicine; Visit Provider Internal Medicine
DX: I50.31 Acute diastolic (congestive) heart failure (principal)
CPT/HCPCS: 36415; 80048

== ENCOUNTER 2019-01-25 07:53 | Emergency (ER) | payer MEDICARE, OTHER, SELFPAY ==
[2018-12-02 03:32] VITALS: BMI 27.1
[2019-01-25 08:12] VITALS: BP 149/84; PULSE 88; RESP 13; TEMP 36.1; O2SAT 99
--- NOTE | 2019-01-25 08:36 | DI.RAD.S_ITS ---
PROCEDURE: XR RIBS LT MIN 3V W CXR1V INDICATIONS: severe pain no injury TECHNIQUE: 2 views of the left ribs were acquired, along with a single view chest. COMPARISON: [facility], , XR CHEST 1V, 12/01/2018, 23:33. FINDINGS: Surgical changes and devices: Valvular prosthesis is redemonstrated. Bones and chest wall: No fractures or dislocations. No suspicious bony lesions. Overlying soft tissues appear unremarkable. Lungs and pleura: No pleural effusions or pneumothorax. Lungs appear clear. Mediastinum: Mediastinal contours appear normal. Heart size is normal. IMPRESSION: No acute cardiopulmonary findings. No displaced rib fractures. Dictated by: Leydi López M.D. on 01/25/2019 at 7:55 Approved by: Leydi López M.D. on 01/25/2019 at 7:56
[2019-01-25 08:39] LABS: Bacteria Urine None Seen
--- NOTE | 2019-01-25 08:40 | ED_ITS ---
HPI - Back Pain/Injury General Chief Complaint: Back Pain/Injury Stated Complaint: SEVERE BACK PAIN Time Seen by Provider: 01/25/19 08:29 Source: patient Mode of arrival: ambulatory Limitations: no limitations History of Present Illness HPI Narrative: Patient is 78-year-old female who presents with severe left-sided rib pain. She says it started 3 days ago when she bent down to get something and then she has been having spasms ever since. It hurts every time she moves she is clearly having spasms while I am talking with her. A rapid although a around the oxycodone for compression fractures in her back already she has been taking those and Flexeril without any relief. She denies any heart or chest pain no shortness of breath however she has pain when she takes a deep breath. She denies falling she feels like she pulled something when she bent down. Location: thoracic spine (Left rib thoracic area) Severity: severe Quality: sharp and spasming Relieving factors: none Exacerbating factors: movement Related Data Home Medications Medication Instructions Recorded Confirmed triamcinolone acetonide [Nasacort] 1 puff INTRANASAL QDAYP PRN #0 07/31/11 12/02/18 levothyroxine 0.1 mg PO QDAY #0 03/01/12 12/02/18 acetaminophen [Tylenol Extra 500 mg PO Q6HP PRN #0 12/28/12 12/02/18 Strength] fluticasone propion-salmeterol 1 puff INH BID #0 12/28/12 12/02/18 [Advair Diskus] [ALAWAY 0.025%] 1 drp OPHTH BID #0 09/10/17 12/02/18 Vitamin D3 1 tab PO DAILY 12/10/17 12/02/18 atorvastatin 80 mg PO BEDTIME 12/10/17 12/02/18 budesonide 9 mg PO QDAY 12/10/17 12/02/18 cetirizine [Zyrtec] 10 mg PO DAILY PRN 12/10/17 12/02/18 furosemide 40 mg PO DAILY 12/10/17 12/02/18 ketotifen fumarate [Alaway] 1 drp OPHTHALMIC (EYE) BID 12/10/17 12/02/18 levalbuterol tartrate [Xopenex HFA] 1 puff INHALATION Q4H PRN 12/10/17 12/02/18 nystatin 5 ml PO QID 12/10/17 12/02/18 warfarin 3 mg PO DAILY 12/10/17 12/02/18 Respironics DreamStation Auto CPAP #1 ea 08/08/18 12/02/18 metoprolol succinate ER 50 mg 50 mg PO DAILY 08/09/18 12/02/18 tablet,extended release 24 hr clopidogrel 75 mg tablet 75 mg PO DAILY 11/07/18 12/02/18 mirtazapine 7.5 mg tablet 7.5 mg PO DAILY 11/07/18 12/02/18 ranitidine 150 mg tablet 150 mg PO DAILY 11/07/18 12/02/18 nitroglycerin 0.6 mg SUBLINGUAL Q5-15M PRN 12/02/18 12/02/18 potassium chloride 20 meq PO DAILY 12/02/18 12/02/18 Previous Rx's Medication Instructions Recorded cyclobenzaprine 10 mg PO Q6HR PRN #30 tab 12/06/18 diazepam 2.5 mg PO BID #20 tab 12/06/18 diazepam [Valium] 5 mg PO Q8HP PRN #30 tab 12/06/18 diphenoxylate-atropine 1 tab PO Q6HP PRN #30 tab 12/06/18 diphenoxylate-atropine [Lomotil] 1 tab PO Q6-8H PRN #30 tab 12/06/18 hydrocodone-acetaminophen 0.5 tab PO Q6HR PRN #30 tab 12/06/18 hydrocodone-acetaminophen 1 tab PO Q4HR PRN #30 tab 12/06/18 lidocaine 1 ea TOPICAL 1900 #30 ea 12/06/18 sennosides [senna] 17.2 mg PO BID #20 tab 12/06/18 oxycodone-acetaminophen [Percocet] 2 tab PO Q6HR #10 tab 01/25/19 Allergies Allergy/AdvReac Type Severity Reaction Status Date / Time azithromycin Allergy Severe Difficulty Verified 12/03/18 13:59 Breathing Sulfa (Sulfonamide Allergy Mild Verified 12/02/18 04:07 Antibiotics) propoxyphene AdvReac Intermediate UPSET Verified 12/03/18 13:59 STOMACH aspirin AdvReac Mild CONTRAINDICATED Verified 12/02/18 05:14 WITH WARFARIN pantoprazole AdvReac Gastrointestinal Verified 12/01/18 22:59 Upset trazodone AdvReac Depression Verified 12/01/18 22:59 Review of Systems Review of Systems GENERAL: Denies chills, fatigue, malaise, fever, sweats, travel HEENT: Denies sinus pain, ear pain, sore throat, difficulty swallowing, neck pain RESPIRATORY: Denies dyspnea, cough, wheezing, hemoptysis, sputum. CARDIOVASCULAR: Denies chest pain, palpitations, orthopnea, edema GASTROINTESTINAL: Denies nausea, vomiting, abdominal pain, diarrhea, constipation, melena. : Denies dysuria, frequency, incontinence, hematuria, urinary retention, flank pain. MUSCULOSKELETAL: See HPI SKIN: No rash, no erythema, no pruritus NEUROLOGIC: Denies weakness, dizziness, headache, numbness, change in speech, confusion PSYCHIATRIC: No concerning psychosocial issues. 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) History of hysterectomy (Acute) IBS (irritable bowel syndrome) (Acute) Laceration (Inactive) Surgical History H/O prosthetic aortic valve replacement (Acute) History of cholecystectomy (Acute) History of coronary artery stent placement (Acute) History of ear surgery (Acute) History of mandibular surgery (Acute) History of sinus surgery (Acute) Social History marital status: details: to Pat, lives in [place] household members: spouse lives independently: Yes caregiver/support person: No housing: house Smoking Status: Never smoker alcohol intake: never Social History marital status: details: to [facility], lives in [place] household members: spouse lives independently: Yes caregiver/support person: No housing: house Smoking Status: Never smoker alcohol intake: never Exam Initial Vital Signs Initial Vital Signs: Vital Signs Temperature 97 F L 01/25/19 08:12 Pulse Rate 88 01/25/19 08:12 Respiratory Rate 13 01/25/19 08:12 Blood Pressure 149/84 H 01/25/19 08:12 Pulse Oximetry 99 01/25/19 08:12 GENERAL: Alert elderly female appears to be in quite a bit of pain holding her left side HEENT: Head atraumatic,EOMI, pupils reactive, face symmetric, moist mucous membranes CARDIOVASCULAR: Regular rate and rhythm without murmurs, rubs or gallops. RESPIRATORY: Breath sounds equal bilaterally, no wheezes rales or rhonchi. No sign of trauma. No contusion no vesicles no rash ABDOMEN: Soft, nontender. Normoactive bowel sounds all 4 quadrants. No guarding or rebound. : No CVA tenderness EXTREMITIES: Normal range of motion, no clubbing or edema. Neurovascularly intact NEUROLOGICAL: Alert and oriented x4.Normal gait and speech. Cranial nerves II through XII grossly intact. SKIN: Warm, dry, no laceration, no petechiae, no rashes or lesions. Course Orders Ordered: ED Orders 01/25/19 08:10 Urine Microscopic Stat 01/25/19 08:36 XR ribs LT min 3V w CXR1V Stat Discontinued Medications Hydromorphone HCl (Dilaudid) 0.5 mg IM NOW ONE Stop: 01/25/19 08:37 Last Admin: 01/25/19 09:18 Dose: 0.5 mg Vital Signs - 8 hr 01/25/19 08:12 01/25/19 09:32 Temperature 97 F L Pulse Rate 88 77 Respiratory Rate 13 12 Blood Pressure 149/84 H Blood Pressure [Left Arm] 138/76 Pulse Oximetry 99 99 MDM - Back Pain/Injury Lab Data Lab Results 01/25/19 Range/Units 08:10 Urine RBC None seen (0-5/HPF) Urine WBC 0-1/hpf (0-5/HPF) Ur Squamous Epith Cells 1-5 /hpf (0-5/HPF) Urine Bacteria None seen (None) Ur Culture Indicated? Cult not indicated Urine Dip Bedside Urine Glucose Negative Bedside Urine Bilirubin - Negative Bedside Urine Ketone - Negative Urine Specific [place] 1.015 Bedside Urine Occult Blood - Negative Bedside Urine pH 6.5 Bedside Urine Protein - Negative Bedside Urine Urobilinogen +/- 1mg Bedside Urine Nitrite - Negative Bedside Urine Leukocytes + 70 Esterase Imaging Data rib: Radiologist's impression: PROCEDURE: XR RIBS LT MIN 3V W CXR1V INDICATIONS: severe pain no injury TECHNIQUE: 2 views of the left ribs were acquired, along with a single view chest. COMPARISON: [facility], CR, XR CHEST 1V, 12/01/2018, 23:33. FINDINGS: Surgical changes and devices: Valvular prosthesis is redemonstrated. Bones and chest wall: No fractures or dislocations. No suspicious bony lesions. Overlying soft tissues appear unremarkable. Lungs and pleura: No pleural effusions or pneumothorax. Lungs appear clear. Mediastinum: Mediastinal contours appear normal. Heart size is normal. IMPRESSION: No acute cardiopulmonary findings. No displaced rib fractures. Dictated by: Leydi López M.D. on 01/25/2019 at 7:55 MDM Narrative Medical decision making narrative: Pain is improved. She is clearly having muscle spasms id do not believe this to be cardiac. Pain is quite severe I do think it may be early shingles however I see no rash I discussed this with them. I discussed with her proper pain management control. She has of Valium at home. At this time she feels able to go home. Discharge Plan Departure Patient Disposition: Home Clinical Impression: Back muscle spasm Discharge Date/Time: 01/25/19 10:38 Interventions: ED Discharge Assessment Last Done: 01/25/19 10:18 Instructions: DI for Back Spasm Activity Restrictions/Additional Instructions: *You have been diagnosed with back strain *What to do: Your x-ray today was negative. Use heating pad as needed might help the spasm. Also sometime shingles presents with severe pain and then the rash developed. At this time I do not see a rash however continue monitoring your skin for such. *Continue to take medications as directed Increase hydrocodone/acetaminophen to 2 tablets every 6 hours as needed for severe pain. May take next dose at noon Valium 5 mg every 8 hours if needed for severe muscle spasm-may take as soon as you get home *Follow up with your primary care provider in 2-3 days *Return to ER if you should have increased pain, rash or any new, worsening or concerning symptoms CONTROLLED SUBSTANCE DISCHARGE (Narcotoic/benzodiazepine/Flexeril/Phenergan) 1. You have been prescribed narcotic medications, it does have acetaminophen/Tylenol/paracetamol in it so do not take extra Tylenol or Tylenol containing products 2. Please understand that we cannot provide further refills of narcotics, benzodiazepines or controlled substances through the ED and her pain management will need to be through your provider. 3. While on these medications you cannot drive or operate heavy machinery. 4. You cannot sign legal documents or perform any duties such as this. 5. As long as you're taking opiate pain medications he should also be taking a stool softener such as Colace, Dulcolax, MiraLAX or prune juice, to help avoid constipation. Prescriptions: New oxycodone-acetaminophen [Percocet] 5-325 mg tablet 2 tab PO Q6HR Qty: 10 RF: 0 No Action triamcinolone acetonide [Nasacort] 55 MCG/PUFF aerosol,spray 1 puff Intranasal QDAYP PRN (Reason: Congestion) Qty: 0 RF: 0 levothyroxine 112 MCG tablet 0.1 mg PO QDAY Qty: 0 RF: 0 fluticasone propion-salmeterol [Advair Diskus] 250 MCG/50 MCG blister with device 1 puff INH BID Qty: 0 RF: 0 acetaminophen [Tylenol Extra Strength] 500 MG tablet 500 mg PO Q6HP PRN (Reason: Pain, Mild) Qty: 0 RF: 0 [ALAWAY 0.025%] 1 drp OPHTH BID Qty: 0 RF: 0 atorvastatin 80 mg tablet 80 mg PO BEDTIME RF: 0 nystatin 100,000 unit/mL suspension 5 ml PO QID RF: 0 cetirizine [Zyrtec] 10 mg Tablet 10 mg PO DAILY PRN (Reason: Allergy Symptoms) RF: 0 ketotifen fumarate [Alaway] 0.025 % (0.035 %) Drops 1 drp ophthalmic (eye) BID RF: 0 warfarin 2 mg tablet 3 mg PO DAILY RF: 0 furosemide 20 mg tablet 40 mg PO DAILY RF: 0 levalbuterol tartrate [Xopenex HFA] 45 mcg/actuation Hfa Aerosol Inhaler 1 puff INHALATION Q4H PRN (Reason: Shortness Of Breath) RF: 0 Vitamin D3 3,000 unit tablet 1 tab PO DAILY RF: 0 budesonide 3 MG capsule,delayed,extend.release 9 mg PO QDAY RF: 0 nitroglycerin 0.3 mg Tablet, Sublingual 0.6 mg SUBLINGUAL Q5-15M PRN (Reason: Chest Pain) RF: 0 potassium chloride 20 mEq/15 mL Liquid 20 meq PO DAILY RF: 0 cyclobenzaprine 10 mg Tablet 10 mg PO Q6HR PRN (Reason: Spasms) Qty: 30 RF: 0 sennosides [senna] 8.6 mg Tablet 17.2 mg PO BID Qty: 20 RF: 0 hydrocodone-acetaminophen 5-325 mg Tablet 0.5 tab PO Q6HR PRN (Reason: Pain, Moderate (4-6)) Qty: 30 RF: 0 hydrocodone-acetaminophen 5-325 mg Tablet 1 tab PO Q4HR PRN (Reason: Pain, Moderate (4-6)) Qty: 30 RF: 0 lidocaine 5 % Adhesive Patch,Medicated 1 ea topical 1900 Qty: 30 RF: 0 diazepam 5 mg Tablet 2.5 mg PO BID Qty: 20 RF: 0 diphenoxylate-atropine 2.5 MG/0.025 MG tablet 1 tab PO Q6HP PRN (Reason: Diarrhea) Qty: 30 RF: 0 diphenoxylate-atropine [Lomotil] 2.5-0.025 mg Tablet 1 tab PO Q6-8H PRN (Reason: Diarrhea) Qty: 30 RF: 0 diazepam [Valium] 5 MG tablet 5 mg PO Q8HP PRN (Reason: Anxiety) Qty: 30 RF: 0 Respironics DreamStation Auto CPAP Qty: 1 RF: 0 metoprolol succinate 50 mg tablet extended release 24 hr 50 mg PO DAILY RF: 0 mirtazapine 7.5 mg tablet 7.5 mg PO DAILY RF: 0 ranitidine HCl [Zantac] 150 mg tablet 150 mg PO DAILY RF: 0 clopidogrel [Plavix] 75 mg tablet 75 mg PO DAILY RF: 0 Referrals: Iggy Trujillo MD [Primary Care Provider] -
[2019-01-25 08:51] LABS: RBC Urine None Seen (0-5/HPF); Squamous Epithelial Cell Urine 1-5 /HPF (0-5/HPF); WBC Urine 0-1/HPF (0-5/HPF)
[2019-01-25 08:52] LABS: Culture Indicated Urine Cult Not Indicated
[2019-01-25] MEDS: HYDROMORPHONE 1 MG INJ 0.5 MG IM (09:18)
[2019-01-25 09:32] VITALS: BP 138/76; PULSE 77; RESP 12; O2SAT 99
== END 2019-01-25 10:38 | disposition home or self-care (01) ==
PROVIDERS: Emergency Provider Emergency Medicine; PCP Internal Medicine
DX: M62.830 Muscle spasm of back (principal)
CPT/HCPCS: 71101; 81003; 81015; 96372; 99282; 99283; J1170

== ENCOUNTER → 2019-02-13 13:29 | Outpatient (CLI) | payer MEDICARE, OTHER, SELFPAY ==
[2018-12-02 03:32] VITALS: BMI 27.1
[2019-02-13 15:11] LABS: Thyroid Stimulating Hormone 1.33 uIU/mL (0.47-4.68)
== END ==
PROVIDERS: PCP Internal Medicine; Visit Provider Internal Medicine
DX: E03.9 Hypothyroidism, unspecified (principal)
CPT/HCPCS: 36415; 84443

== ENCOUNTER → 2019-02-20 12:23 | Outpatient (CLI) | payer MEDICARE, OTHER, SELFPAY ==
[2018-12-02 03:32] VITALS: BMI 27.1
--- NOTE | 2019-02-20 | DI.RAD.S_ITS ---
PROCEDURE: XR ABDOMEN MIN 2V INDICATIONS: DIARRHEA TECHNIQUE: 2 views of the abdomen were acquired. COMPARISON: [facility], CT, CT PEL WO CON, 12/02/2018, 15:36. FINDINGS: Surgical changes and devices: Clustered surgical clips over the right lower abdomen. Bowel: No pneumoperitoneum. The bowel gas pattern is nonspecific. There is no suspicion for presence of bowel obstruction or perforation. Soft tissues: No masses; visualized solid organ contours appear normal in size. No suspicious abdominal calcifications. Bones: No suspicious bony abnormalities. IMPRESSION: Multiple surgical clips right lower abdomen. Colonic obstipation appears present on the right in the left over the lower abdomen/pelvis. Multiple right-sided abdominal surgical clips, which may reflect prior surgical intervention at the kidney or possibly the appendix area. Dictated by: Pj Dave M.D. on 02/20/2019 at 12:51 Approved by: Pj Dave M.D. on 02/20/2019 at 12:54
== END ==
PROVIDERS: PCP Internal Medicine; Visit Provider Internal Medicine
DX: R19.7 Diarrhea, unspecified (principal)
CPT/HCPCS: 74019

== ENCOUNTER 2019-02-22 10:06 | Emergency (ER) | payer MEDICARE, OTHER, SELFPAY ==
[2018-12-02 03:32] VITALS: BMI 27.1
[2019-02-22 10:12] VITALS: BP 163/87; PULSE 83; RESP 16; TEMP 37.1; O2SAT 98; BMI 24.1
--- NOTE | 2019-02-22 10:19 | ED_ITS ---
HPI - Abdominal Pain General Chief Complaint: Abdominal Pain Stated Complaint: Bowel problem Time Seen by Provider: 02/22/19 10:12 Source: patient and old records reviewed Mode of arrival: ambulatory Limitations: no limitations History of Present Illness HPI narrative: Patient is a 78-year-old female who presents with abdominal distention ongoing for last 2-3 weeks. She actually had an outpatient x-ray done 2 days ago which did show some constipation. She has been taking magnesium citrate at home she says she is having liquid diarrhea. She denies any nausea or vomiting. She feels like her belly is more distended. She denies any pain in her rectum. She does not feel as though she is constipated. She overall is not getting better and is here in the emergency department today. She denies any chest pain shortness of breath or fever. MD complaint: abdominal pain Onset (ago): week(s) (3) Pain Consistency: constant Location: diffuse Quality: cramping Relieving factors: nothing Exacerbating factors: nothing Related Data Home Medications Medication Instructions Recorded Confirmed triamcinolone acetonide [Nasacort] 1 puff INTRANASAL QDAYP PRN #0 07/31/11 12/02/18 levothyroxine 0.1 mg PO QDAY #0 03/01/12 12/02/18 acetaminophen [Tylenol Extra 500 mg PO Q6HP PRN #0 12/28/12 12/02/18 Strength] fluticasone propion-salmeterol 1 puff INH BID #0 12/28/12 12/02/18 [Advair Diskus] [ALAWAY 0.025%] 1 drp OPHTH BID #0 09/10/17 12/02/18 Vitamin D3 1 tab PO DAILY 12/10/17 12/02/18 atorvastatin 80 mg PO BEDTIME 12/10/17 12/02/18 budesonide 9 mg PO QDAY 12/10/17 12/02/18 cetirizine [Zyrtec] 10 mg PO DAILY PRN 12/10/17 12/02/18 furosemide 40 mg PO DAILY 12/10/17 12/02/18 ketotifen fumarate [Alaway] 1 drp OPHTHALMIC (EYE) BID 12/10/17 12/02/18 levalbuterol tartrate [Xopenex HFA] 1 puff INHALATION Q4H PRN 12/10/17 12/02/18 nystatin 5 ml PO QID 12/10/17 12/02/18 warfarin 3 mg PO DAILY 12/10/17 12/02/18 Respironics DreamStation Auto CPAP #1 ea 08/08/18 12/02/18 metoprolol succinate ER 50 mg 50 mg PO DAILY 08/09/18 12/02/18 tablet,extended release 24 hr clopidogrel 75 mg tablet 75 mg PO DAILY 11/07/18 12/02/18 mirtazapine 7.5 mg tablet 7.5 mg PO DAILY 11/07/18 12/02/18 ranitidine 150 mg tablet 150 mg PO DAILY 11/07/18 12/02/18 nitroglycerin 0.6 mg SUBLINGUAL Q5-15M PRN 12/02/18 12/02/18 potassium chloride 20 meq PO DAILY 12/02/18 12/02/18 Previous Rx's Medication Instructions Recorded cyclobenzaprine 10 mg PO Q6HR PRN #30 tab 12/06/18 diazepam 2.5 mg PO BID #20 tab 12/06/18 diazepam [Valium] 5 mg PO Q8HP PRN #30 tab 12/06/18 diphenoxylate-atropine 1 tab PO Q6HP PRN #30 tab 12/06/18 diphenoxylate-atropine [Lomotil] 1 tab PO Q6-8H PRN #30 tab 12/06/18 hydrocodone-acetaminophen 0.5 tab PO Q6HR PRN #30 tab 12/06/18 hydrocodone-acetaminophen 1 tab PO Q4HR PRN #30 tab 12/06/18 lidocaine 1 ea TOPICAL 1900 #30 ea 12/06/18 sennosides [senna] 17.2 mg PO BID #20 tab 12/06/18 oxycodone-acetaminophen [Percocet] 2 tab PO Q6HR #10 tab 01/25/19 amoxicillin-pot clavulanate 1 tab PO Q12H #14 tab 02/22/19 [Augmentin] ciprofloxacin HCl [Cipro] 500 mg PO Q12H #14 tab 02/22/19 metronidazole [Flagyl] 500 mg PO Q8H #21 tab 02/22/19 Allergies Allergy/AdvReac Type Severity Reaction Status Date / Time azithromycin Allergy Severe Difficulty Verified 02/22/19 10:20 Breathing Sulfa (Sulfonamide Allergy Mild Verified 02/22/19 10:20 Antibiotics) propoxyphene AdvReac Intermediate UPSET Verified 02/22/19 10:20 STOMACH aspirin AdvReac Mild CONTRAINDICATED Verified 02/22/19 10:20 WITH WARFARIN pantoprazole AdvReac Gastrointestinal Verified 02/22/19 10:20 Upset trazodone AdvReac Depression Verified 02/22/19 10:20 Review of Systems Review of Systems ROS Unobtainable: All systems reviewed & are unremarkable except as noted in HPI and below Constitutional Denies chills, Denies fever(s), Denies lethargy and Denies weakness Cardiovascular Denies chest pain, Denies irregular heart rhythm, Denies lightheadedness, Denies palpitations, Denies dyspnea, Denies dyspnea on exertion and Denies orthopnea Respiratory Denies cough, Denies dyspnea, Denies dyspnea on exertion and Denies wheezing Gastrointestinal Gastrointestinal: Reports as per HPI and Reports abdominal pain Genitourinary Denies hematuria, Denies flank pain, Denies urinary incontinence and Denies urinary urgency Musculoskeletal Denies back pain, Denies muscle weakness, Denies numbness and Denies tingling Integumentary/Breasts Denies pruritus, Denies erythema, Denies rash and Denies wounds Neurologic Denies numbness, Denies tingling and Denies weakness Endocrine Denies palpitations Allergic/Immunologic Denies wheezing FORMERLY [facility] Medical History Obstructive sleep apnea of adult (Chronic) Colitis (Acute) Acute chest pain (Acute) Anti-phospholipid syndrome (Acute) Asthma (Acute) Chronic atrial fibrillation (Acute) Current use of [facility] anticoagulation (Acute) History of hysterectomy (Acute) IBS (irritable bowel syndrome) (Acute) Laceration (Inactive) Surgical History H/O prosthetic aortic valve replacement (Acute) History of cholecystectomy (Acute) History of coronary artery stent placement (Acute) History of ear surgery (Acute) History of mandibular surgery (Acute) History of sinus surgery (Acute) Social History marital status: details: to Pat, lives in [place] household members: spouse lives independently: Yes caregiver/support person: No housing: house Smoking Status: Never smoker alcohol intake: never Social History marital status: details: anson Carvajal, lives in [place] household members: spouse lives independently: Yes caregiver/support person: No housing: house Smoking Status: Never smoker alcohol intake: never Exam Initial Vital Signs Initial Vital Signs: Vital Signs Temperature 98.7 F 02/22/19 10:12 Pulse Rate 83 02/22/19 10:12 Respiratory Rate 16 02/22/19 10:12 Blood Pressure 163/87 H 02/22/19 10:12 Pulse Oximetry 98 02/22/19 10:12 GENERAL: Pleasant well-appearing elderly female and in no acute distress. HEENT: Head atraumatic,EOMI, pupils reactive CARDIOVASCULAR: Regular rate and rhythm without murmurs, rubs or gallops. RESPIRATORY: Breath sounds equal bilaterally, no wheezes rales or rhonchi. ABDOMEN: Soft, distension no guarding no rebound increased bowel sounds EXTREMITIES: Normal range of motion, no clubbing or edema. Neurovascularly intact NEUROLOGICAL: Alert and oriented x4.Normal gait and speech. Cranial nerves II through XII grossly intact. SKIN: Warm, dry, no laceration, no petechiae, no rashes or lesions. Course Orders Ordered: ED Orders 02/22/19 10:28 CT abdomen pelvis w con Stat 02/22/19 10:56 Complete Blood Count AUTO DIFF Stat Comprehensive Metabolic Panel Stat Lipase Stat Prothrombin Time INR Stat Vital Signs - 8 hr 02/22/19 10:12 02/22/19 11:11 02/22/19 12:00 Temperature 98.7 F Pulse Rate 83 79 73 Respiratory Rate 16 14 17 Blood Pressure 163/87 H Blood Pressure [Left Arm] 138/92 H 163/80 H Pulse Oximetry 98 98 95 02/22/19 13:11 Temperature Pulse Rate 71 Respiratory Rate 14 Blood Pressure 143/110 H Blood Pressure [Left Arm] Pulse Oximetry 93 MDM - Abdominal Pain Lab Data Attestation: I reviewed the patient's lab results. Result diagrams: 02/22/19 10:56 02/22/19 10:56 Lab Results 02/22/19 02/22/19 02/22/19 Range/Units 10:56 10:56 10:56 WBC 12.7 H (4.5-11.0) X10^3/uL RBC 5.03 (4.0-5.2) X10^6/uL Hgb 13.6 (12.0-16.0) g/dL Hct 41.2 (36-46) % MCV 82.0 (80-100) fL MCH 27.1 (26-34) PG MCHC 33.0 (30-36) % RDW 17.1 H (11.6-14.8) % Plt Count 335 (150-400) X10^3/uL Neut % (Auto) 77.9 H (50-75) % Lymph % (Auto) 12.7 L (25-40) % Dunn % (Auto) 8.0 (3-14) % Eos % (Auto) 0.9 L (2-4) % Baso % (Auto) 0.5 (0-2) % Neut # (Auto) 9900 H (5517-8670) /uL Lymph # (Auto) 1600 (9708-5126) /uL Dunn # (Auto) 1000 H (0-900) /uL Eos # (Auto) 100 (0-450) /uL Baso # (Auto) 100 (0-100) /uL PT 25.8 H (10.1-12.7) SECONDS INR 2.2 H (0.9-1.3) Sodium 138 (137-145) mmol/L Potassium 3.1 L (3.4-5.1) mmol/L Chloride 98 (98-107) mmol/L Carbon Dioxide 34 H (22-32) mmol/L BUN 17 (7-17) mg/dL Creatinine 0.70 (0.52-1.04) mg/dL Estimated GFR > 60.0 (>60) mL/min BUN/Creatinine Ratio 24.3 H (6-22) Glucose 96 (80-110) mg/dL Calcium 9.2 (8.4-10.2) mg/dL Total Bilirubin 0.9 (0.2-1.3) mg/dL AST 43 H (14-36) IU/L ALT 35 (9-52) IU/L Alkaline Phosphatase 153 H (38-126) U/L Total Protein 7.0 (6.3-8.2) g/dL Albumin 3.8 (3.5-5.0) g/dL Globulin 3.2 (1.7-4.1) g/dL Albumin/Globulin Ratio 1.2 (1.0-2.8) Lipase 105 (23-300) U/L Point of care testing: Urine Dip Bedside Urine Glucose Negative Bedside Urine Bilirubin - Negative Bedside Urine Ketone - Negative Urine Specific Gaffney 1.010 Bedside Urine Occult Blood - Negative Bedside Urine pH 7.5 Bedside Urine Protein - Negative Bedside Urine Urobilinogen - Negative Bedside Urine Nitrite - Negative Bedside Urine Leukocytes - Negative Esterase Imaging Data CT scan - abdomen: Radiologist's impression: PROCEDURE: CT ABDOMEN PELVIS W CON INDICATIONS: ab pain distention TECHNIQUE: After the administration of oral and intravenous contrast, 5 mm thick sections acquired from the diaphragms to the symphysis. 5 mm thick coronal and sagittal reformats were performed. For radiation dose reduction, the following was used: automated e xposure control, adjustment of mA and/or kV according to patient size. COMPARISON: [facility], CT, ABDOMEN/PELVIS WITH CONTRAST, 05/19/2015, 2:23. FINDINGS: Image quality: Diagnostic. ABDOMEN: Lung bases: Interstitial prominence is identified within the lung bases, probably representing areas of scarring, given that this appearance is similar to the prior study. Mild prominence of the right atrium is noted. Solid organs: The liver is hypodense when compared to the spleen. Hepatic cysts are evident. There is moderate intrahepatic and extrahepatic biliary dilatation. The common bile duct is enlarged and measures up to approximately 10 mm in diameter. The degree of intrahepatic biliary dilatation has increased. The size of the common bile duct may be slightly larger on the current study. No solid liver lesions are evident. The patient has had a prior cholecystectomy. The spleen is unremarkable with the exception of heterogeneous enhancement. No focal splenic lesions are identified. The left adrenal gland demonstrates a small nodule, which measures approximately 9 mm in diameter, which is unchanged since 2015, suggesting a benign process. The right adrenal gland is mildly prominent without a definite nodule evident. The pancreas is unremarkable. The kidneys are normal in size. No solid renal lesions are appreciated. A simple appearing superior right renal cyst is present. There is no hydronephrosis. There is mild right-sided hydroureter with urothelial enhancement. No ureteral calculi are present. Borderline prominent left ureter is also noted. Peritoneum and bowel: There is a small hiatal hernia. The stomach is grossly unremarkable, but noted to be decompressed. The small bowel loops are nondilated. There is moderate thickening of the wall of the distal colon (the lower descending and sigmoid colon). The colon is noted to be fluid-filled. No mesenteric inflammation is evident. No free fluid, loculated fluid collection or free air is identified. Are Nodes and vessels: No retroperitoneal or mesenteric adenopathy. Aorta and inferior vena cava are normal in caliber. Aortic atherosclerosis is present. There is also prominent atherosclerosis involving the origins of the renal arteries, celiac artery, and superior mesenteric artery. No occlusions are evident. Iliac artery atherosclerosis is also noted. Miscellaneous: There are compression deformities identified involving the L1, L2, and L3 vertebral bodies, which are new since 05/19/15, but probably has not significantly changed since 01/03/19. The bone mineralization PELVIS: Genitourinary: Mild distention of the urinary bladder is present. The uterus is surgically absent. The ovaries are not definitely seen and may either be surgically absent or atrophic. Miscellaneous: No inguinal hernias or adenopathy. No free fluid or loculated fluid collection is evident. Bones: No suspicious bony lesions. No acute pelvic fractures are evident. IMPRESSION: 1. Distal colonic wall thickening is suspicious for infectious or inflammatory colitis and clinical correlation is recommended. 2. No bowel obstruction. 3. Fluid within the colon is suggestive of diarrhea. 4. Probable hepatic steatosis. Prominence of the common bile duct is similar to previous exams and probably is related to the patient's prior cholecystectomy. The need for better characterization utilizing MR CP may be determined clinically. 5. Stable left adrenal nodule. 6. Multiple lumbar compression deformities probably has not changed since January 03, 2019. 7. Nonspecific prominence of the bilateral ureters probably is related to mild distention of the urinary bladder. Dictated by: Roosevelt Adamson M.D. on 02/22/2019 at 10:40 MDM Narrative Medical decision making narrative: Patient has not had diarrhea while in the emergency department. CT does not show any sore constipation fact show some inflammation. Apparently there was talk of may be C diff however she is only having mild diarrhea 1-2 times. She does have mild leukocytosis. She also told me she was on Coumadin her INRs checked it is 2.2. Will give her Flagyl and Augmentin for her colitis and follow up with her PCP. I have strongly recommended and told her that she absolutely needs to have her INR recheck this week. INR last week apparently was 6, we have no record of that. At this time is ready and able to go home Discharge Plan Departure Patient Disposition: Home Clinical Impression: Colitis Discharge Date/Time: 02/22/19 13:12 Interventions: ED Discharge Assessment Last Done: 02/22/19 13:11 Instructions: DI for Colitis Activity Restrictions/Additional Instructions: INR=2.2 *You have been diagnosed with colitis *What to do: Clear liquid diet. No sign of constipation or obstruction *Continue to take medications as directed Flagyl 500 mg 3 times a day for 1 week [id number] mg twice a day for 1 week--this will increase your INR, YOU MUST H AVE YOUR INR CHECKED WITH YOUR PRIMARY ON NEXT WEEK SUNDAY OR SUNDAY *Follow up with your primary care provider in 2-3 days *Return to ER if you should have increased abdominal pain, blood in stool, vomiting or any new, worsening or concerning symptoms Prescriptions: New metronidazole [Flagyl] 500 mg tablet 500 mg PO Q8H Qty: 21 RF: 0 ciprofloxacin HCl [Cipro] 500 mg tablet 500 mg PO Q12H Qty: 14 RF: 0 amoxicillin-pot clavulanate [Augmentin] 875-125 mg tablet 1 tab PO Q12H Qty: 14 RF: 0 No Action triamcinolone acetonide [Nasacort] 55 MCG/PUFF aerosol,spray 1 puff Intranasal QDAYP PRN (Reason: Congestion) Qty: 0 RF: 0 levothyroxine 112 MCG tablet 0.1 mg PO QDAY Qty: 0 RF: 0 fluticasone propion-salmeterol [Advair Diskus] 250 MCG/50 MCG blister with device 1 puff INH BID Qty: 0 RF: 0 acetaminophen [Tylenol Extra Strength] 500 MG tablet 500 mg PO Q6HP PRN (Reason: Pain, Mild) Qty: 0 RF: 0 [ALAWAY 0.025%] 1 drp OPHTH BID Qty: 0 RF: 0 atorvastatin 80 mg tablet 80 mg PO BEDTIME RF: 0 nystatin 100,000 unit/mL suspension 5 ml PO QID RF: 0 cetirizine [Zyrtec] 10 mg Tablet 10 mg PO DAILY PRN (Reason: Allergy Symptoms) RF: 0 ketotifen fumarate [Alaway] 0.025 % (0.035 %) Drops 1 drp ophthalmic (eye) BID RF: 0 warfarin 2 mg tablet 3 mg PO DAILY RF: 0 furosemide 20 mg tablet 40 mg PO DAILY RF: 0 levalbuterol tartrate [Xopenex HFA] 45 mcg/actuation Hfa Aerosol Inhaler 1 puff INHALATION Q4H PRN (Reason: Shortness Of Breath) RF: 0 Vitamin D3 3,000 unit tablet 1 tab PO DAILY RF: 0 budesonide 3 MG capsule,delayed,extend.release 9 mg PO QDAY RF: 0 nitroglycerin 0.3 mg Tablet, Sublingual 0.6 mg SUBLINGUAL Q5-15M PRN (Reason: Chest Pain) RF: 0 potassium chloride 20 mEq/15 mL Liquid 20 meq PO DAILY RF: 0 cyclobenzaprine 10 mg Tablet 10 mg PO Q6HR PRN (Reason: Spasms) Qty: 30 RF: 0 sennosides [senna] 8.6 mg Tablet 17.2 mg PO BID Qty: 20 RF: 0 hydrocodone-acetaminophen 5-325 mg Tablet 0.5 tab PO Q6HR PRN (Reason: Pain, Moderate (4-6)) Qty: 30 RF: 0 hydrocodone-acetaminophen 5-325 mg Tablet 1 tab PO Q4HR PRN (Reason: Pain, Moderate (4-6)) Qty: 30 RF: 0 lidocaine 5 % Adhesive Patch,Medicated 1 ea topical 1900 Qty: 30 RF: 0 diazepam 5 mg Tablet 2.5 mg PO BID Qty: 20 RF: 0 diphenoxylate-atropine 2.5 MG/0.025 MG tablet 1 tab PO Q6HP PRN (Reason: Diarrhea) Qty: 30 RF: 0 diphenoxylate-atropine [Lomotil] 2.5-0.025 mg Tablet 1 tab PO Q6-8H PRN (Reason: Diarrhea) Qty: 30 RF: 0 diazepam [Valium] 5 MG tablet 5 mg PO Q8HP PRN (Reason: Anxiety) Qty: 30 RF: 0 oxycodone-acetaminophen [Percocet] 5-325 mg tablet 2 tab PO Q6HR Qty: 10 RF: 0 Respironics DreamStation Auto CPAP Qty: 1 RF: 0 metoprolol succinate 50 mg tablet extended release 24 hr 50 mg PO DAILY RF: 0 mirtazapine 7.5 mg tablet 7.5 mg PO DAILY RF: 0 ranitidine HCl [Zantac] 150 mg tablet 150 mg PO DAILY RF: 0 clopidogrel [Plavix] 75 mg tablet 75 mg PO DAILY RF: 0 Referrals: Iggy Trujillo MD [Primary Care Provider] -
--- NOTE | 2019-02-22 10:28 | DI.CT.S_ITS ---
PROCEDURE: CT ABDOMEN PELVIS W CON INDICATIONS: ab pain distention TECHNIQUE: After the administration of oral and intravenous contrast, 5 mm thick sections acquired from the diaphragms to the symphysis. 5 mm thick coronal and sagittal reformats were performed. For radiation dose reduction, the following was used: automated exposure control, adjustment of mA and/or kV according to patient size. COMPARISON: [facility], CT, ABDOMEN/PELVIS WITH CONTRAST, 05/19/2015, 2:23. FINDINGS: Image quality: Diagnostic. ABDOMEN: Lung bases: Interstitial prominence is identified within the lung bases, probably representing areas of scarring, given that this appearance is similar to the prior study. Mild prominence of the right atrium is noted. Solid organs: The liver is hypodense when compared to the spleen. Hepatic cysts are evident. There is moderate intrahepatic and extrahepatic biliary dilatation. The common bile duct is enlarged and measures up to approximately 10 mm in diameter. The degree of intrahepatic biliary dilatation has increased. The size of the common bile duct may be slightly larger on the current study. No solid liver lesions are evident. The patient has had a prior cholecystectomy. The spleen is unremarkable with the exception of heterogeneous enhancement. No focal splenic lesions are identified. The left adrenal gland demonstrates a small nodule, which measures approximately 9 mm in diameter, which is unchanged since 2015, suggesting a benign process. The right adrenal gland is mildly prominent without a definite nodule evident. The pancreas is unremarkable. The kidneys are normal in size. No solid renal lesions are appreciated. A simple appearing superior right renal cyst is present. There is no hydronephrosis. There is mild right-sided hydroureter with urothelial enhancement. No ureteral calculi are present. Borderline prominent left ureter is also noted. Peritoneum and bowel: There is a small hiatal hernia. The stomach is grossly unremarkable, but noted to be decompressed. The small bowel loops are nondilated. There is moderate thickening of the wall of the distal colon (the lower descending and sigmoid colon). The colon is noted to be fluid-filled. No mesenteric inflammation is evident. No free fluid, loculated fluid collection or free air is identified. Are Nodes and vessels: No retroperitoneal or mesenteric adenopathy. Aorta and inferior vena cava are normal in caliber. Aortic atherosclerosis is present. There is also prominent atherosclerosis involving the origins of the renal arteries, celiac artery, and superior mesenteric artery. No occlusions are evident. Iliac artery atherosclerosis is also noted. Miscellaneous: There are compression deformities identified involving the L1, L2, and L3 vertebral bodies, which are new since 05/19/15, but probably has not significantly changed since 01/03/19. The bone mineralization PELVIS: Genitourinary: Mild distention of the urinary bladder is present. The uterus is surgically absent. The ovaries are not definitely seen and may either be surgically absent or atrophic. Miscellaneous: No inguinal hernias or adenopathy. No free fluid or loculated fluid collection is evident. Bones: No suspicious bony lesions. No acute pelvic fractures are evident. IMPRESSION: 1. Distal colonic wall thickening is suspicious for infectious or inflammatory colitis and clinical correlation is recommended. 2. No bowel obstruction. 3. Fluid within the colon is suggestive of diarrhea. 4. Probable hepatic steatosis. Prominence of the common bile duct is similar to previous exams and probably is related to the patient's prior cholecystectomy. The need for better characterization utilizing MR CP may be determined clinically. 5. Stable left adrenal nodule. 6. Multiple lumbar compression deformities probably has not changed since January 03, 2019. 7. Nonspecific prominence of the bilateral ureters probably is related to mild distention of the urinary bladder. Dictated by: Roosevelt Adamson M.D. on 02/22/2019 at 10:40 Approved by: Roosevelt Adamson M.D. on 02/22/2019 at 10:49
[2019-02-22 11:06] LABS: Add Manual Diff / Slide Review NO; Basophils Absolute Auto 100 /uL (0-100); Basophils Percent Auto 0.5 % (0-2); Eosinophils Absolute Auto 100 /uL (0-450); Eosinophils Percent Auto 0.9 % (2-4); Hematocrit 41.2 % (36-46); Hemoglobin 13.6 g/dL (12.0-16.0); Lymphocytes Absolute Auto 1600 /uL (1100-4500); Lymphocytes Percent Auto 12.7 % (25-40); Mean Corpuscular Hemoglobin 27.1 PG (26-34); Monocytes Absolute Auto 1000 /uL (0-900); Neutrophils Absolute Auto 9900 /uL (1500-7000); Neutrophils Percent Auto 77.9 % (50-75); Platelet Count 335 X10^3/uL (150-400); Red Blood Cell Count 5.03 X10^6/uL (4.0-5.2); Red Cell Distribution Width 17.1 % (11.6-14.8); White Blood Cell Count 12.7 X10^3/uL (4.5-11.0)
[2019-02-22 11:11] VITALS: BP 138/92; PULSE 79; RESP 14; O2SAT 98
[2019-02-22 11:19] LABS: Alanine Aminotransferase 35 IU/L (9-52); Albumin 3.8 g/dL (3.5-5.0); Albumin Globulin Ratio 1.2 (1.0-2.8); Alkaline Phosphatase 153 U/L (38-126); Aspartate Aminotransferase 43 IU/L (14-36); BUN Creatinine Ratio 24.3 (6-22); Bilirubin Total 0.9 mg/dL (0.2-1.3); Blood Urea Nitrogen 17 mg/dL (7-17); Calcium 9.2 mg/dL (8.4-10.2); Carbon Dioxide 34 mmol/L (22-32); Chloride 98 mmol/L (98-107); Estimated Glomerular Filt Rate > 60.0 mL/min (>60); Globulin 3.2 g/dL (1.7-4.1); Glucose 96 mg/dL (80-110); HEMOLYSIS < 15 (0-50); Lipase 105 U/L (23-300); Potassium 3.1 mmol/L (3.4-5.1); Sodium 138 mmol/L (137-145)
[2019-02-22 12:00] VITALS: BP 163/80; PULSE 73; RESP 17; O2SAT 95
[2019-02-22 12:49] LABS: INR 2.2 (0.9-1.3); Prothrombin Time 25.8 SECONDS (10.1-12.7)
[2019-02-22 13:11] VITALS: BP 143/110; PULSE 71; RESP 14; O2SAT 93
== END 2019-02-22 13:12 | disposition home or self-care (01) ==
PROVIDERS: Emergency Provider Emergency Medicine; PCP Internal Medicine
DX: K52.9 Noninfective gastroenteritis and colitis, unspecified (principal)
CPT/HCPCS: 36591; 74177; 80053; 81003; 83690; 85025; 85610; 99282; 99285; Q9967

== ENCOUNTER 2019-02-26 22:33 | Emergency (ER) | payer MEDICARE, OTHER, SELFPAY ==
[2018-12-02 03:32] VITALS: BMI 27.1
[2019-02-26 22:42] VITALS: BP 158/111; PULSE 87; RESP 18; TEMP 37; O2SAT 94; BMI 23.8
--- NOTE | 2019-02-26 22:43 | DI.RAD.S_ITS ---
PROCEDURE: XR CHEST 1V INDICATIONS: chest pain TECHNIQUE: One view of the chest was acquired. COMPARISON: [facility], CR, XR CHEST 1V, 12/01/2018, 23:33. CT pulmonary angiogram 09/10/2017. FINDINGS: Surgical changes and devices: TAVR is stable. Lungs and pleura: No consolidation. Diffuse increased interstitial markings bilaterally. Lung volumes are increased. Question of persistent hazy opacity in the right apex and superior right lower lobe. No pleural effusions or pneumothorax seen. Mediastinum: Mediastinal contours are unchanged. Heart size is within normal limits. Bones and chest wall: No suspicious bony lesions. Overlying soft tissues appear unremarkable. IMPRESSION: No acute process identified. Question of persistent hazy opacity in the right apex and superior right lower lobe. Emphysematous change. Dictated by: Claudio Teran M.D. on 02/27/2019 at 7:22 Approved by: Claudio Teran M.D. on 02/27/2019 at 7:29
--- NOTE | 2019-02-26 22:44 | ED.CHESTPAIN ---
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 She says the pain goes to her right shoulder blade. She denies any shortness of breath no nausea vomiting no diaphoresis. She describes it as a heaviness not a pain. She has a history of a TAVR on coumadin and coronary artery stents. She is currently being treated for colitis with Augmentin and Flagyl. I saw her 4 days prior she says she is having bowel movement she saw her PCP. MD complaint: chest pain Onset: during rest Quality: heaviness Relieving factors: nothing Exacerbating factors: nothing Related Data Home Medications Medication Instructions Recorded Confirmed triamcinolone acetonide [Nasacort] 1 puff INTRANASAL QDAYP PRN #0 07/31/11 12/02/18 levothyroxine 0.1 mg PO QDAY #0 03/01/12 12/02/18 acetaminophen [Tylenol Extra 500 mg PO Q6HP PRN #0 12/28/12 12/02/18 Strength] fluticasone propion-salmeterol 1 puff INH BID #0 12/28/12 12/02/18 [Advair Diskus] [ALAWAY 0.025%] 1 drp OPHTH BID #0 09/10/17 12/02/18 Vitamin D3 1 tab PO DAILY 12/10/17 12/02/18 atorvastatin 80 mg PO BEDTIME 12/10/17 12/02/18 budesonide 9 mg PO QDAY 12/10/17 12/02/18 cetirizine [Zyrtec] 10 mg PO DAILY PRN 12/10/17 12/02/18 furosemide 40 mg PO DAILY 12/10/17 12/02/18 ketotifen fumarate [Alaway] 1 drp OPHTHALMIC (EYE) BID 12/10/17 12/02/18 levalbuterol tartrate [Xopenex HFA] 1 puff INHALATION Q4H PRN 12/10/17 12/02/18 nystatin 5 ml PO QID 12/10/17 12/02/18 warfarin 3 mg PO DAILY 12/10/17 12/02/18 Respironics DreamStation Auto CPAP #1 ea 08/08/18 12/02/18 metoprolol succinate 50 mg 50 mg PO DAILY 08/09/18 12/02/18 tablet,extended release 24 hr clopidogrel 75 mg tablet 75 mg PO DAILY 11/07/18 12/02/18 mirtazapine 7.5 mg tablet 7.5 mg PO DAILY 11/07/18 12/02/18 ranitidine HCl 150 mg tablet 150 mg PO DAILY 11/07/18 12/02/18 nitroglycerin 0.6 mg SUBLINGUAL Q5-15M PRN 12/02/18 12/02/18 potassium chloride 20 meq PO DAILY 12/02/18 12/02/18 Previous Rx's Medication Instructions Recorded cyclobenzaprine 10 mg PO Q6HR PRN #30 tab 12/06/18 diazepam 2.5 mg PO BID #20 tab 12/06/18 diazepam [Valium] 5 mg PO Q8HP PRN #30 tab 12/06/18 diphenoxylate-atropine 1 tab PO Q6HP PRN #30 tab 12/06/18 diphenoxylate-atropine [Lomotil] 1 tab PO Q6-8H PRN #30 tab 12/06/18 hydrocodone-acetaminophen 0.5 tab PO Q6HR PRN #30 tab 12/06/18 hydrocodone-acetaminophen 1 tab PO Q4HR PRN #30 tab 12/06/18 lidocaine 1 ea TOPICAL 1900 #30 ea 12/06/18 sennosides [senna] 17.2 mg PO BID #20 tab 12/06/18 oxycodone-acetaminophen [Percocet] 2 tab PO Q6HR #10 tab 01/25/19 amoxicillin-pot clavulanate 1 tab PO Q12H #14 tab 02/22/19 [Augmentin] ciprofloxacin HCl [Cipro] 500 mg PO Q12H #14 tab 02/22/19 metronidazole [Flagyl] 500 mg PO Q8H #21 tab 02/22/19 Allergies Allergy/AdvReac Type Severity Reaction Status Date / Time azithromycin Allergy Severe Difficulty Verified 02/26/19 22:42 Breathing Sulfa (Sulfonamide Allergy Mild Verified 02/26/19 22:42 Antibiotics) propoxyphene AdvReac Intermediate UPSET Verified 02/26/19 22:42 STOMACH aspirin AdvReac Mild CONTRAINDICATED Verified 02/26/19 22:42 WITH WARFARIN pantoprazole AdvReac Gastrointestinal Verified 02/26/19 22:42 Upset trazodone AdvReac Depression Verified 02/26/19 22:42 Review of Systems Review of Systems Narrative: GENERAL: Denies chills, fatigue, malaise, fever, sweats, travel HEENT: Denies sinus pain, ear pain, sore throat, difficulty swallowing, neck pain RESPIRATORY: Denies dyspnea, cough, wheezing, hemoptysis, sputum. CARDIOVASCULAR: See HPI GASTROINTESTINAL: Denies nausea, vomiting, abdominal pain, diarrhea, constipation, melena. : Denies dysuria, frequency, incontinence, hematuria, urinary retention, flank pain. MUSCULOSKELETAL: Denies weakness, joint pain, or bony pain SKIN: No rash, no erythema, no pruritus NEUROLOGIC: Denies weakness, dizziness, headache, numbness, change in speech, confusion PSYCHIATRIC: No concerning psychosocial issues. 12 point review of systems is negative except for those stated above and HPI [facility] Medical History Acute chest pain (Acute) Anti-phospholipid syndrome (Acute) Asthma (Acute) Chronic atrial fibrillation (Acute) Colitis (Acute) Current use of mcfp anticoagulation (Acute) History of hysterectomy (Acute) IBS (irritable bowel syndrome) (Acute) Laceration (Inactive) Obstructive sleep apnea of adult (Chronic) Surgical History H/O prosthetic aortic valve replacement (Acute) History of cholecystectomy (Acute) History of coronary artery stent placement (Acute) History of ear surgery (Acute) History of mandibular surgery (Acute) History of sinus surgery (Acute) Social History marital status: details: to Pat, lives in [place] household members: spouse lives independently: Yes caregiver/support person: No housing: house Smoking Status: Never smoker alcohol intake: never Social History marital status: details: to Pat, lives in [place] household members: spouse lives independently: Yes caregiver/support person: No housing: house Smoking Status: Never smoker alcohol intake: never Exam Initial Vital Signs Initial Vital Signs: Vital Signs Temperature 98.6 F 02/26/19 22:42 Pulse Rate 87 02/26/19 22:42 Respiratory Rate 18 02/26/19 22:42 Blood Pressure 158/111 H 02/26/19 22:42 Pulse Oximetry 94 02/26/19 22:42 GENERAL: Alert well-appearing elderly female no acute distress HEENT: Head atraumatic,EOMI, pupils reactive CARDIOVASCULAR: Regular rate and rhythm without murmurs, rubs or gallops. RESPIRATORY: Breath sounds equal bilaterally, no wheezes rales or rhonchi. ABDOMEN: Soft, nontender. Normoactive bowel sounds all 4 quadrants. No guarding or rebound. EXTREMITIES: Normal range of motion, no clubbing or edema. Neurovascularly intact NEUROLOGICAL: Alert and oriented x4.Normal gait and speech. Cranial nerves II through XII grossly intact. SKIN: Warm, dry, no laceration, no petechiae, no rashes or lesions. Course Orders Ordered: ED Orders 02/26/19 22:42 Complete Blood Count AUTO DIFF Stat Comprehensive Metabolic Panel Stat Lipase Stat Partial Thromboplastin Time Stat Prothrombin Time INR Stat Troponin & CK Cardiac Panel Stat 02/26/19 22:43 XR chest 1V Stat EKG-12 Lead Stat 02/27/19 01:42 Troponin I Stat Discontinued Medications Sodium Chloride (Normal Saline 0.9%) 1,000 mls @ 150 mls/hr IV CONT STEVE Last Admin: 02/26/19 22:50 Dose: 150 mls/hr Documented by: MARK Nitroglycerin (Nitrostat) 0.4 mg SL NOW ONE Stop: 02/27/19 00:22 Vital Signs Vital signs: Vital Signs - 8 hr 02/26/19 22:42 02/26/19 22:56 02/27/19 00:08 Temperature 98.6 F Pulse Rate 87 84 75 Respiratory Rate 18 19 18 Blood Pressure 158/111 H Blood Pressure [Left Arm] 139/95 H 116/77 Pulse Oximetry 94 100 96 02/27/19 00:46 02/27/19 00:58 02/27/19 02:31 Temperature Pulse Rate 80 76 Respiratory Rate 17 18 Blood Pressure Blood Pressure [Left Arm] 132/75 100/61 119/77 Pulse Oximetry 97 97 MDM - Chest Pain Lab Data Attestation: I reviewed the patient's lab results. Result diagrams: 02/26/19 22:42 02/26/19 22:42 Labs: Lab Results 02/26/19 02/26/19 02/26/19 Range/Units 22:42 22:42 22:42 WBC 13.5 H (4.5-11.0) X10^3/uL RBC 5.40 H (4.0-5.2) X10^6/uL Hgb 14.7 (12.0-16.0) g/dL Hct 44.0 (36-46) % MCV 81.5 (80-100) fL MCH 27.3 (26-34) PG MCHC 33.5 (30-36) % RDW 16.3 H (11.6-14.8) % Plt Count 324 (150-400) X10^3/uL Neut % (Auto) 69.6 (50-75) % Lymph % (Auto) 19.3 L (25-40) % [place] % (Auto) 8.9 (3-14) % Eos % (Auto) 1.0 L (2-4) % Baso % (Auto) 1.2 (0-2) % Neut # (Auto) 9400 H (0030-0609) /uL Lymph # (Auto) 2600 (3461-1578) /uL [place] # (Auto) 1200 H (0-900) /uL Eos # (Auto) 100 (0-450) /uL Baso # (Auto) 200 H (0-100) /uL PT 89.1 H D (10.1-12.7) SECONDS INR 7.4 H* (0.9-1.3) APTT 64 H (26.4-36.2) SECONDS Sodium 139 (137-145) mmol/L Potassium 2.8 L (3.4-5.1) mmol/L Chloride 95 L (98-107) mmol/L Carbon Dioxide 29 (22-32) mmol/L BUN 14 (7-17) mg/dL Creatinine 0.70 (0.52-1.04) mg/dL Estimated GFR > 60.0 (>60) mL/min BUN/Creatinine Ratio 20.0 (6-22) Glucose 114 H (80-110) mg/dL Calcium 8.3 L (8.4-10.2) mg/dL Total Bilirubin 0.8 (0.2-1.3) mg/dL AST 60 H (14-36) IU/L ALT 50 (9-52) IU/L Alkaline Phosphatase 161 H (38-126) U/L Total Creatine Kinase 46 (30-135) U/L CK-MB (CK-2) TNP CK-MB (CK-2) Rel Index TNP Troponin I 0.015 (0.01-0.034) ng/mL Total Protein 7.1 (6.3-8.2) g/dL Albumin 3.9 (3.5-5.0) g/dL Globulin 3.2 (1.7-4.1) g/dL Albumin/Globulin Ratio 1.2 (1.0-2.8) Lipase 266 D (23-300) U/L 02/27/19 Range/Units 01:42 WBC (4.5-11.0) X10^3/uL RBC (4.0-5.2) X10^6/uL Hgb (12.0-16.0) g/dL Hct (36-46) % MCV (80-100) fL MCH (26-34) PG MCHC (30-36) % RDW (11.6-14.8) % Plt Count (150-400) X10^3/uL Neut % (Auto) (50-75) % Lymph % (Auto) (25-40) % [place] % (Auto) (3-14) % Eos % (Auto) (2-4) % Baso % (Auto) (0-2) % Neut # (Auto) (1860-1866) /uL Lymph # (Auto) (4037-5395) /uL [place] # (Auto) (0-900) /uL Eos # (Auto) (0-450) /uL Baso # (Auto) (0-100) /uL PT (10.1-12.7) SECONDS INR (0.9-1.3) APTT (26.4-36.2) SECONDS Sodium (137-145) mmol/L Potassium (3.4-5.1) mmol/L Chloride (98-107) mmol/L Carbon Dioxide (22-32) mmol/L BUN (7-17) mg/dL Creatinine (0.52-1.04) mg/dL Estimated GFR (>60) mL/min BUN/Creatinine Ratio (6-22) Glucose (80-110) mg/dL Calcium (8.4-10.2) mg/dL Total Bilirubin (0.2-1.3) mg/dL AST (14-36) IU/L ALT (9-52) IU/L Alkaline Phosphatase (38-126) U/L Total Creatine Kinase (30-135) U/L CK-MB (CK-2) CK-MB (CK-2) Rel Index Troponin I 0.015 (0.01-0.034) ng/mL Total Protein (6.3-8.2) g/dL Albumin (3.5-5.0) g/dL Globulin (1.7-4.1) g/dL Albumin/Globulin Ratio (1.0-2.8) Lipase (23-300) U/L ECG Data Attestation: I personally reviewed and interpreted this ECG as follows: Prior ECG tracings: available for review Interpretation: Normal sinus rhythm artifact noted no obvious ST elevations Q-wave noted in lead 3 similar to previous EKG MDM Narrative Medical decision making narrative: Patient describes discomfort as heaviness. She actually states that she took a nitroglycerin prior to her arrival without any relief. She is given another nitroglycerin in the ED which resolved all of her discomfort. She has 2-troponins. Her INR is noted to be significantly elevated at 7.4. Patient with like to go home. 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 Del Real whom she saw 2 weeks ago an echocardiogram was done at that time patient states everything looked okay. I explained to both patient and unable to completely evaluate the heart without distress test. Patient thinks her last stress test was about 1 year ago. Offered admission to stay overnight for stress testing however patient has been would like to go home they understand that more needs to be done and if chest pain returns they need to return to the ED immediately. At this time I recommended she hold off her Coumadin for the next 3 days have her INR rechecked by her PCP. Patient apparently also was only drinking liquids due to the colitis and was not eating she says that she is rather hungry and feels like she is able to eat. I discussed all findings with the patient and spouse, Education has been performed regarding treatment plan, diagnosis, warning signs and symptoms and all concerns have been addressed. Verbally agree with and understood all of the above. Discharge Plan Departure Patient Disposition: Home Clinical Impression: Atypical chest pain Discharge Date/Time: 02/27/19 02:59 Instructions: DI for Angina, DI for Atypical Chest Pain Activity Restrictions/Additional Instructions: INR is 7.4 *You have been diagnosed with atypical chest pain, angina *What to do: You may increase diet as tolerated for for colitis. *Continue to take medications as directed DO NOT TAKE WARFARIN/COUMADIN FOR AT LEAST 2-3 DAYS. I RECOMMEND TO HAVE HER INR RECHECKED BY SUNDAY WITH YOUR PCP *Follow up with your primary care provider in 2-3 days *Return to ER if you should have chest heaviness, shortness of breath, chest discomfort, palpitations dizziness, worsening abdominal pain inability to tolerate fluids or food any new, worsening or concerning symptoms Prescriptions: No Action triamcinolone acetonide [Nasacort] 55 MCG/PUFF aerosol,spray 1 puff Intranasal QDAYP PRN (Reason: Congestion) Qty: 0 RF: 0 levothyroxine 112 MCG tablet 0.1 mg PO QDAY Qty: 0 RF: 0 fluticasone propion-salmeterol [Advair Diskus] 250 MCG/50 MCG blister with device 1 puff INH BID Qty: 0 RF: 0 acetaminophen [Tylenol Extra Strength] 500 MG tablet 500 mg PO Q6HP PRN (Reason: Pain, Mild) Qty: 0 RF: 0 [ALAWAY 0.025%] 1 drp OPHTH BID Qty: 0 RF: 0 atorvastatin 80 mg tablet 80 mg PO BEDTIME RF: 0 nystatin 100,000 unit/mL suspension 5 ml PO QID RF: 0 cetirizine [Zyrtec] 10 mg Tablet 10 mg PO DAILY PRN (Reason: Allergy Symptoms) RF: 0 ketotifen fumarate [Alaway] 0.025 % (0.035 %) Drops 1 drp ophthalmic (eye) BID RF: 0 warfarin 2 mg tablet 3 mg PO DAILY RF: 0 furosemide 20 mg tablet 40 mg PO DAILY RF: 0 levalbuterol tartrate [Xopenex HFA] 45 mcg/actuation Hfa Aerosol Inhaler 1 puff INHALATION Q4H PRN (Reason: Shortness Of Breath) RF: 0 Vitamin D3 3,000 unit tablet 1 tab PO DAILY RF: 0 budesonide 3 MG capsule,delayed,extend.release 9 mg PO QDAY RF: 0 nitroglycerin 0.3 mg Tablet, Sublingual 0.6 mg SUBLINGUAL Q5-15M PRN (Reason: Chest Pain) RF: 0 potassium chloride 20 mEq/15 mL Liquid 20 meq PO DAILY RF: 0 cyclobenzaprine 10 mg Tablet 10 mg PO Q6HR PRN (Reason: Spasms) Qty: 30 RF: 0 sennosides [senna] 8.6 mg Tablet 17.2 mg PO BID Qty: 20 RF: 0 hydrocodone-acetaminophen 5-325 mg Tablet 0.5 tab PO Q6HR PRN (Reason: Pain, Moderate (4-6)) Qty: 30 RF: 0 hydrocodone-acetaminophen 5-325 mg Tablet 1 tab PO Q4HR PRN (Reason: Pain, Moderate (4-6)) Qty: 30 RF: 0 lidocaine 5 % Adhesive Patch,Medicated 1 ea topical 1900 Qty: 30 RF: 0 diazepam 5 mg Tablet 2.5 mg PO BID Qty: 20 RF: 0 diphenoxylate-atropine 2.5 MG/0.025 MG tablet 1 tab PO Q6HP PRN (Reason: Diarrhea) Qty: 30 RF: 0 diphenoxylate-atropine [Lomotil] 2.5-0.025 mg Tablet 1 tab PO Q6-8H PRN (Reason: Diarrhea) Qty: 30 RF: 0 diazepam [Valium] 5 MG tablet 5 mg PO Q8HP PRN (Reason: Anxiety) Qty: 30 RF: 0 oxycodone-acetaminophen [Percocet] 5-325 mg tablet 2 tab PO Q6HR Qty: 10 RF: 0 metronidazole [Flagyl] 500 mg tablet 500 mg PO Q8H Qty: 21 RF: 0 ciprofloxacin HCl [Cipro] 500 mg tablet 500 mg PO Q12H Qty: 14 RF: 0 amoxicillin-pot clavulanate [Augmentin] 875-125 mg tablet 1 tab PO Q12H Qty: 14 RF: 0 (DME) Respironics DreamStation Auto CPAP Qty: 1 RF: 0 metoprolol succinate 50 mg tablet extended release 24 hr 50 mg PO DAILY RF: 0 mirtazapine 7.5 mg tablet 7.5 mg PO DAILY RF: 0 ranitidine HCl [Zantac] 150 mg tablet 150 mg PO DAILY RF: 0 clopidogrel [Plavix] 75 mg tablet 75 mg PO DAILY RF: 0 Referrals: Iggy Trujillo MD [Primary Care Provider] - Airam Del Real MD [Physician] -
[2019-02-26] MEDS: SODIUM CHLORIDE 0.9% 1,000 ML 150 ML IV (22:50)
[2019-02-26 22:51] LABS: Add Manual Diff / Slide Review NO; Basophils Absolute Auto 200 /uL (0-100); Basophils Percent Auto 1.2 % (0-2); Eosinophils Absolute Auto 100 /uL (0-450); Hemoglobin 14.7 g/dL (12.0-16.0); Lymphocytes Absolute Auto 2600 /uL (1100-4500); Lymphocytes Percent Auto 19.3 % (25-40); Mean Corpuscular HGB Conc 33.5 % (30-36); Mean Corpuscular Hemoglobin 27.3 PG (26-34); Mean Corpuscular Volume 81.5 fL (80-100); Monocytes Absolute Auto 1200 /uL (0-900); Monocytes Percent Auto 8.9 % (3-14); Neutrophils Absolute Auto 9400 /uL (1500-7000); Neutrophils Percent Auto 69.6 % (50-75); Platelet Count 324 X10^3/uL (150-400); Red Cell Distribution Width 16.3 % (11.6-14.8); White Blood Cell Count 13.5 X10^3/uL (4.5-11.0)
[2019-02-26 22:54] LABS: Prothrombin Time 89.1 SECONDS (10.1-12.7)
[2019-02-26 22:56] VITALS: BP 139/95; PULSE 84; RESP 19; O2SAT 100
[2019-02-26 22:56] LABS: PTT Partial Thromboplastin Tim 64 SECONDS (26.4-36.2)
[2019-02-26 22:59] LABS: Alanine Aminotransferase 50 IU/L (9-52); Albumin 3.9 g/dL (3.5-5.0); Albumin Globulin Ratio 1.2 (1.0-2.8); Alkaline Phosphatase 161 U/L (38-126); Aspartate Aminotransferase 60 IU/L (14-36); Bilirubin Total 0.8 mg/dL (0.2-1.3); Blood Urea Nitrogen 14 mg/dL (7-17); Calcium 8.3 mg/dL (8.4-10.2); Carbon Dioxide 29 mmol/L (22-32); Chloride 95 mmol/L (98-107); Creatine Kinase 46 U/L (30-135); Estimated Glomerular Filt Rate > 60.0 mL/min (>60); Globulin 3.2 g/dL (1.7-4.1); Glucose 114 mg/dL (80-110); HEMOLYSIS 23 (0-50); Lipase 266 U/L (23-300); Potassium 2.8 mmol/L (3.4-5.1); Sodium 139 mmol/L (137-145); Total Protein 7.1 g/dL (6.3-8.2)
[2019-02-26 23:04] LABS: INR 7.4 (0.9-1.3)
[2019-02-26 23:10] LABS: Troponin I 0.015 ng/mL (0.01-0.034)
[2019-02-27 00:08] VITALS: BP 116/77; PULSE 75; RESP 18; O2SAT 96
[2019-02-27 00:46] VITALS: BP 132/75
[2019-02-27 00:58] VITALS: BP 100/61; PULSE 80; RESP 17; O2SAT 97
--- NOTE | 2019-02-27 00:58 | PC.NURSE ---
She had mild chest pressure before nitro SL given.Pressure free now.
[2019-02-27 02:13] LABS: Troponin I 0.015 ng/mL (0.01-0.034)
[2019-02-27 02:31] VITALS: BP 119/77; PULSE 76; RESP 18; O2SAT 97
--- NOTE | 2019-03-06 19:12 | PC.NURSE ---
ON 02/27/19 at 0245, approx. 600 ml NS infused and the rest was wasted.
== END 2019-02-27 02:59 | disposition home or self-care (01) ==
PROVIDERS: Emergency Provider Emergency Medicine; PCP Internal Medicine
DX: R07.89 Other chest pain (principal); Z79.01 Long term (current) use of anticoagulants
CPT/HCPCS: 36415; 36591; 71045; 80053; 82550; 82553; 83690; 84484; 85025; 85610; 85730; 93005; 96360; 96361; 99283; 99285

== ENCOUNTER → 2019-04-02 09:14 | Outpatient (CLI) | payer MEDICARE, OTHER, SELFPAY ==
[2018-12-02 03:32] VITALS: BMI 27.1
[2019-04-02 10:39] LABS: BUN Creatinine Ratio 28.3 (6-22); Blood Urea Nitrogen 17 mg/dL (7-17); Calcium 9.6 mg/dL (8.4-10.2); Carbon Dioxide 33 mmol/L (22-32); Chloride 98 mmol/L (98-107); Estimated Glomerular Filt Rate > 60.0 mL/min (>60); Glucose 122 mg/dL (80-110); HEMOLYSIS < 15 (0-50); Potassium 4.5 mmol/L (3.4-5.1); Sodium 139 mmol/L (137-145)
== END ==
PROVIDERS: PCP Internal Medicine; Visit Provider Internal Medicine
DX: E87.6 Hypokalemia (principal)
CPT/HCPCS: 36415; 80048

== ENCOUNTER → 2019-04-16 13:16 | Outpatient (CLI) | payer MEDICARE, OTHER, SELFPAY ==
[2018-12-02 03:32] VITALS: BMI 27.1
--- NOTE | 2019-04-16 | DI.RAD.S_ITS ---
PROCEDURE: XR LUMBAR SPINE 2-3V INDICATIONS: Compressijon fracture of L1 vertebra with routine healing TECHNIQUE: 3 views of the lumbar spine were acquired. COMPARISON: CT abdomen pelvis 02/22/2019. [facility], , XR LUMBAR SPINE 2-3V, 01/03/2019, 10:41. FINDINGS: Bones: 5 [id number] vertebrae are present. There is normal bony alignment. L1 right anterior compression fracture with less than 50% height loss is unchanged. Minimal compression fracture of the L3 vertebral body which is unchanged compared to CT 02/22/2019 and new compared to 01/03/2019. No suspicious bony lesions. Soft tissues: Overlying bowel gas pattern is normal. No suspicious soft tissue calcifications. Vascular stent partially visualized. Multiple clips in the right abdomen. IMPRESSION: Stable appearance of the L1 and L3 compression fractures. Dictated by: Claudio Teran M.D. on 04/16/2019 at 16:30 Approved by: Claudio Teran M.D. on 04/16/2019 at 16:34
--- NOTE | 2019-04-16 | DI.RAD.S_ITS ---
PROCEDURE: XR THORACIC SPINE 3V INDICATIONS: UPPER BACK PAIN TECHNIQUE: 3 views of the thoracic spine were acquired. COMPARISON: CXR 02/26/[address] abdomen pelvis 02/22/2019. FINDINGS: Bones: Osteopenia. Mild T10 compression fracture appears unchanged and was partially visualized on CT from 02/22/2019. No suspicious bony lesions. L1 and L3 compression fractures are also seen. 12 pairs of ribs are noted, and appear intact where visualized. Thoracic spine kyphosis. Soft tissues: No paravertebral stripe thickening. Visualized portions of the lung appear clear. Aortic valvular stent. Surgical clips in the right upper abdomen. Vascular calcifications. IMPRESSION: T10 compression fracture appears unchanged. Osteopenia and thoracic spine kyphosis. Dictated by: Claudio Teran M.D. on 04/16/2019 at 16:34 Approved by: Claudio Teran M.D. on 04/16/2019 at 16:40
== END ==
PROVIDERS: PCP Internal Medicine; Visit Provider Internal Medicine
DX: S32.010D Wedge compression fracture of first lumbar vertebra, subsequent encounter for fracture with routine healing (principal); M54.6 Pain in thoracic spine; M85.88 Other specified disorders of bone density and structure, other site; M40.204 Unspecified kyphosis, thoracic region
CPT/HCPCS: 72072; 72100

== ENCOUNTER → 2019-04-29 13:42 | Outpatient (CLI) | payer MEDICARE, OTHER, SELFPAY ==
[2018-12-02 03:32] VITALS: BMI 27.1
[2019-04-29 15:09] LABS: BUN Creatinine Ratio 35.7 (6-22); Blood Urea Nitrogen 25 mg/dL (7-17); Calcium 9.5 mg/dL (8.4-10.2); Estimated Glomerular Filt Rate > 60.0 mL/min (>60); Glucose 96 mg/dL (80-110); HEMOLYSIS 22 (0-50); Sodium 128 mmol/L (137-145)
[2019-04-29 16:01] LABS: Chloride 75 mmol/L (98-107)
[2019-04-29 16:02] LABS: Carbon Dioxide 45 mmol/L (22-32)
== END ==
PROVIDERS: PCP Internal Medicine; Visit Provider Internal Medicine
DX: I48.91 Unspecified atrial fibrillation (principal)
CPT/HCPCS: 36415; 80048

== ENCOUNTER → 2019-05-12 09:51 | Outpatient (CLI) | payer MEDICARE, OTHER, SELFPAY ==
[2018-12-02 03:32] VITALS: BMI 27.1
[2019-05-12 12:42] LABS: Alanine Aminotransferase 24 IU/L (<35); Albumin Globulin Ratio 1.7 (1.0-2.8); Alkaline Phosphatase 92 U/L (38-126); Aspartate Aminotransferase 41 IU/L (14-36); BUN Creatinine Ratio 24.3 (6-22); Bilirubin Total 0.6 mg/dL (0.2-1.3); Blood Urea Nitrogen 17 mg/dL (7-17); Calcium 9.6 mg/dL (8.4-10.2); Carbon Dioxide 31 mmol/L (22-32); Chloride 96 mmol/L (98-107); Cholesterol 122 mg/dL (140-199); Estimated Glomerular Filt Rate > 60.0 mL/min (>60); Globulin 2.4 g/dL (1.7-4.1); Glucose 90 mg/dL (80-110); HDL Cholesterol 55 mg/dL (40-60); HEMOLYSIS < 15 (0-50); LDL Cholesterol Calculated 52 mg/dL (<100); Potassium 5.2 mmol/L (3.4-5.1); Sodium 137 mmol/L (137-145); Total Protein 6.4 g/dL (6.3-8.2); Triglycerides 76 mg/dL (35-150)
== END ==
PROVIDERS: PCP Internal Medicine; Visit Provider Internal Medicine
DX: I35.0 Nonrheumatic aortic (valve) stenosis (principal); I70.90 Unspecified atherosclerosis; E87.6 Hypokalemia
CPT/HCPCS: 36415; 80053; 80061

== ENCOUNTER → 2019-05-27 14:43 | Outpatient (CLI) | payer MEDICARE, OTHER, SELFPAY ==
[2018-12-02 03:32] VITALS: BMI 27.1
[2019-05-27 15:47] LABS: BUN Creatinine Ratio 34.3 (6-22); Blood Urea Nitrogen 24 mg/dL (7-17); Calcium 9.5 mg/dL (8.4-10.2); Carbon Dioxide 35 mmol/L (22-32); Chloride 94 mmol/L (98-107); Estimated Glomerular Filt Rate > 60.0 mL/min (>60); Glucose 89 mg/dL (80-110); HEMOLYSIS 42 (0-50); Potassium 4.9 mmol/L (3.4-5.1); Sodium 135 mmol/L (137-145)
== END ==
PROVIDERS: PCP Internal Medicine; Visit Provider Internal Medicine
DX: E87.5 Hyperkalemia (principal)
CPT/HCPCS: 36415; 80048

== ENCOUNTER 2019-05-31 11:44 | Emergency (ER) | payer MEDICARE, OTHER, SELFPAY ==
[2018-12-02 03:32] VITALS: BMI 27.1
[2019-05-31 11:53] VITALS: BP 156/99; PULSE 69; RESP 16; TEMP 37.2; O2SAT 94; BMI 27.3
--- NOTE | 2019-05-31 11:54 | DI.RAD.S_ITS ---
PROCEDURE: XR WRIST RT MIN 3V INDICATIONS: pain after impact TECHNIQUE: 4 views of the wrist were acquired. COMPARISON: [facility], CR, XR ELBOW RT MIN 3V, 05/31/2019, 12:01. [facility], RG, XR HAND 3V RIGHT, 09/14/2005, 11:33. FINDINGS: Bones: No fractures or dislocations. No suspicious bony lesions. Age-appropriate bony degenerative changes are seen. Scaphoid view: No navicular fractures are seen. Soft tissues: No suspicious soft tissue calcifications. Atherosclerotic calcification is noted. IMPRESSION: No displaced fractures are seen. If there is snuffbox tenderness (or other clinical suspicion for a fracture not seen on these images) then a repeat examination would be recommended in 10 to 14 days, following splinting. Dictated by: Micah Cash M.D. on 05/31/2019 at 11:36 Approved by: Micah Cash M.D. on 05/31/2019 at 11:37
--- NOTE | 2019-05-31 11:54 | DI.RAD.S_ITS ---
PROCEDURE: XR ELBOW RT MIN 3V INDICATIONS: pain after hitting on counter TECHNIQUE: 3 views of the elbow were acquired. COMPARISON: [facility], CR, XR WRIST RT MIN 3V, 05/31/2019, 12:01. FINDINGS: Bones: No fractures or dislocations. No suspicious bony lesions. Age-appropriate bony degenerative changes are seen. Soft tissues: No elbow joint effusion. No suspicious soft tissue calcifications. IMPRESSION: Negative plain films. Dictated by: Micah Cash M.D. on 05/31/2019 at 11:35 Approved by: Micah Cash M.D. on 05/31/2019 at 11:36
--- NOTE | 2019-05-31 12:48 | ED_ITS ---
HPI - Extremity Injury (Upper) <Marilu Rosen, PROGRAM PROPOSALS COORDINATOR-BC - Last Filed: 05/31/19 14:46> General Chief Complaint: Extremity Injury, Upper Stated Complaint: RIGHT HAND WRIST SWOLLEN Time Seen by Provider: 05/31/19 11:48 Source: patient Mode of arrival: Ambulatory Limitations: no limitations History of Present Illness HPI narrative: The patient is a 78-year-old female with complex medical history including antiphospholipid syndrome and coronary artery disease who presents with her for chief complaint of right wrist and right elbow pain. She states that she was trying to catch dishes from falling above her on Thanksgiving and somehow hurt her wrist. She knows that she slammed her elbow on the counter, and states she is having bruising and pain there. She states that she has a history of osteoporosis, and fractures easily. She is concerned about wrist and elbow fracture. She has not taken anything for pain. She states she has full range of motion of her elbow and wrist, but notes swelling for both. She states that there has been some redness over wrist and elbow since the accident, but it is decreasing. She denies any fevers nausea vomiting or diarrhea. She has been using ice frequently. Related Data Home Medications Medication Instructions Recorded Confirmed triamcinolone acetonide [Nasacort] 1 puff INTRANASAL QDAYP PRN #0 07/31/11 05/08/19 levothyroxine 0.1 mg PO QDAY #0 03/01/12 05/08/19 acetaminophen [Tylenol Extra 500 mg PO Q6HP PRN #0 12/28/12 05/08/19 Strength] fluticasone propion-salmeterol 1 puff INH BID #0 12/28/12 05/08/19 [Advair Diskus] [ALAWAY 0.025%] 1 drp OPHTH BID #0 09/10/17 05/08/19 Vitamin D3 1 tab PO DAILY 12/10/17 05/08/19 atorvastatin 80 mg PO BEDTIME 12/10/17 05/08/19 budesonide 9 mg PO QDAY 12/10/17 05/08/19 cetirizine [Zyrtec] 10 mg PO DAILY PRN 12/10/17 05/08/19 furosemide 40 mg PO DAILY 12/10/17 05/08/19 ketotifen fumarate [Alaway] 1 drp OPHTHALMIC (EYE) BID 12/10/17 05/08/19 levalbuterol tartrate [Xopenex HFA] 1 puff INHALATION Q4H PRN 12/10/17 05/08/19 nystatin 5 ml PO QID 12/10/17 05/08/19 warfarin 3 mg PO DAILY 12/10/17 05/08/19 Respironics DreamStation Auto CPAP #1 ea 08/08/18 05/08/19 metoprolol succinate 50 mg 50 mg PO DAILY 08/09/18 05/08/19 tablet,extended release 24 hr clopidogrel 75 mg tablet 75 mg PO DAILY 11/07/18 05/08/19 mirtazapine 7.5 mg tablet 7.5 mg PO DAILY 11/07/18 05/08/19 ranitidine HCl 150 mg tablet 150 mg PO DAILY 11/07/18 05/08/19 nitroglycerin 0.6 mg SUBLINGUAL Q5-15M PRN 12/02/18 05/08/19 potassium chloride 20 meq PO DAILY 12/02/18 05/08/19 Previous Rx's Medication Instructions Recorded cyclobenzaprine 10 mg PO Q6HR PRN #30 tab 12/06/18 diazepam 2.5 mg PO BID #20 tab 12/06/18 diazepam [Valium] 5 mg PO Q8HP PRN #30 tab 12/06/18 diphenoxylate-atropine 1 tab PO Q6HP PRN #30 tab 12/06/18 diphenoxylate-atropine [Lomotil] 1 tab PO Q6-8H PRN #30 tab 12/06/18 hydrocodone-acetaminophen 0.5 tab PO Q6HR PRN #30 tab 12/06/18 hydrocodone-acetaminophen 1 tab PO Q4HR PRN #30 tab 12/06/18 lidocaine 1 ea TOPICAL 1900 #30 ea 12/06/18 sennosides [senna] 17.2 mg PO BID #20 tab 12/06/18 oxycodone-acetaminophen [Percocet] 2 tab PO Q6HR #10 tab 01/25/19 amoxicillin-pot clavulanate 1 tab PO Q12H #14 tab 02/22/19 [Augmentin] ciprofloxacin HCl [Cipro] 500 mg PO Q12H #14 tab 02/22/19 metronidazole [Flagyl] 500 mg PO Q8H #21 tab 02/22/19 Allergies Allergy/AdvReac Type Severity Reaction Status Date / Time azithromycin Allergy Severe Difficulty Verified 05/31/19 11:55 Breathing Sulfa (Sulfonamide Allergy Mild Verified 05/31/19 11:55 Antibiotics) propoxyphene AdvReac Intermediate UPSET Verified 05/31/19 11:55 STOMACH aspirin AdvReac Mild CONTRAINDICATED Verified 05/31/19 11:55 WITH WARFARIN pantoprazole AdvReac Gastrointestinal Verified 05/31/19 11:55 Upset trazodone AdvReac Depression Verified 05/31/19 11:55 Review of Systems <ARLENE Ordonez - Last Filed: 05/31/19 14:46> Review of Systems Narrative: GENERAL: Denies chills, fatigue, malaise, fever, sweats. HEENT: Denies sinus pain, ear pain, sore throat, difficulty swallowing, dizziness. RESPIRATORY: Denies dyspnea, cough, wheezing, hemoptysis, sputum. CARDIOVASCULAR: Denies chest pain, palpitations, orthopnea, edema, GASTROINTESTINAL: Denies nausea, vomiting, abdominal pain, diarrhea, constipation, melena. : Denies dysuria, frequency, incontinence, hematuria, urinary retention. MUSCULOSKELETAL: See HPI SKIN: See HPI NEUROLOGIC: Denies weakness, headache, numbness, change in speech, confusion, seizures, incoordination. PSYCHIATRIC: No concerning psychosocial issues. 12 point review of systems is negative except for those stated above Patient History <ARLENE Ordonez - Last Filed: 05/31/19 14:46> Medical History Acute chest pain (Acute) Anti-phospholipid syndrome (Acute) Asthma (Acute) Chronic atrial fibrillation (Acute) Colitis (Acute) Current use of senior care anticoagulation (Acute) IBS (irritable bowel syndrome) (Acute) Laceration (Inactive) Obstructive sleep apnea of adult (Chronic) Surgical History H/O prosthetic aortic valve replacement (Acute) History of cholecystectomy (Acute) History of coronary artery stent placement (Acute) History of ear surgery (Acute) History of hysterectomy (Acute) History of mandibular surgery (Acute) History of sinus surgery (Acute) Social History marital status: details: to Alena, lives in [place] household members: spouse lives independently: Yes caregiver/support person: No housing: house Smoking Status: Never smoker alcohol intake: never alcohol intake frequency: 0-2 drinks per day Substance Use Type: does not use Exam <ARLENE Ordonez - Last Filed: 05/31/19 14:46> Narrative Exam Narrative: GENERAL: This is a well-nourished, well-developed patient, in no acute distress HEAD: Atraumatic. Normocephalic. No temporal or scalp tenderness. EYES: Pupils equal round and reactive. Extraocular motions intact. No scleral icterus. No injection or drainage. ENT: Nose without bleeding, purulent drainage or septal hematoma. Throat without erythema, tonsillar hypertrophy or exudate. Uvula midline. Airway patent. NECK: Trachea midline. No JVD or lymphadenopathy. Supple, nontender, no meningeal signs. CARDIOVASCULAR: Regular rate and rhythm RESPIRATORY: No cough. No increased respiratory effort. No accessory muscle use. GASTROINTESTINAL: Abdomen soft, non-tender, nondistended. No hepato- splenomegaly, or palpable masses. No guarding. EXTREMITIES: Generalized pain to palpation right elbow. Able to flex and extend right right elbow, palpable swelling right elbow. Slight erythema noted. Skin is intact. Pain to palpation noted right wrist. No pain to snuffbox palpation. Positive radial pulse right hand. Good strength right fingers. Capillary refill less than 2 seconds. Full range of motion noted right wrist. Able to pronate and supinate right wrist. Diffuse erythema over radial aspect right wrist, no obvious laceration or abrasion. BACK: Nontender without deformity or crepitance. No flank tenderness. NEURO: AOx3. SKIN: See extremity exam Initial Vital Signs Initial Vital Signs: Vital Signs Temperature 98.9 F 05/31/19 11:53 Pulse Rate 69 05/31/19 11:53 Respiratory Rate 16 05/31/19 11:53 Blood Pressure 156/99 H 05/31/19 11:53 Pulse Oximetry 94 05/31/19 11:53 <Porsche Garay DO - Last Filed: 06/01/19 07:14> Initial Vital Signs Initial Vital Signs: Vital Signs Temperature 98.9 F 05/31/19 11:53 Pulse Rate 69 05/31/19 11:53 Respiratory Rate 16 05/31/19 11:53 Blood Pressure 156/99 H 05/31/19 11:53 Pulse Oximetry 94 05/31/19 11:53 Course <ARLENE Ordonez - Last Filed: 05/31/19 14:46> Orders Ordered: ED Orders 05/31/19 11:54 XR elbow RT min 3V Stat XR wrist RT min 3V Stat Vital Signs Vital signs: Vital Signs - 8 hr 05/31/19 11:53 Temperature 98.9 F Pulse Rate 69 Respiratory Rate 16 Blood Pressure 156/99 H Pulse Oximetry 94 <Porsche Garay DO - Last Filed: 06/01/19 07:14> Orders Ordered: ED Orders 05/31/19 11:54 XR elbow RT min 3V Stat XR wrist RT min 3V Stat Vital Signs Vital signs: Vital Signs - 8 hr 05/31/19 11:53 Temperature 98.9 F Pulse Rate 69 Respiratory Rate 16 Blood Pressure 156/99 H Pulse Oximetry 94 MDM - Extremity Injury (Upper) <ARLENE Ordonez - Last Filed: 05/31/19 14:46> Imaging Data Wrist x-ray: Radiologist's impression: [address] [address] XRay Report Signed Patient: Farida Nair JMR#: [id number] : 1940Acct:[id number] Age/Sex: 78 / FDate of Service: 05/31/19 Loc: ED Accession Number: [id number] Procedure: XR wrist RT min 3V Ordering Provider: Marilu Rosen PROCEDURE: XR WRIST RT MIN 3V INDICATIONS: pain after impact TECHNIQUE: 4 views of the wrist were acquired. COMPARISON: [facility], JORGE LUIS, XR ELBOW RT MIN 3V, 05/31/2019, 12:01. [facility], RG, XR HAND 3V RIGHT, 09/14/2005, 11:33. FINDINGS: Bones: No fractures or dislocations. No suspicious bony lesions. Age- appropriate bony degenerative changes are seen. Scaphoid view: No navicular fractures are seen. Soft tissues: No suspicious soft tissue calcifications. Atherosclerotic calcification is noted. IMPRESSION: No displaced fractures are seen. If there is snuffbox tenderness (or other clinical suspicion for a fracture not seen on these images) then a repeat examination would be recommended in 10 to 14 days, following splinting. Dictated by: Micah Cash M.D. on 05/31/2019 at 11:36 Approved by: Micah Cash M.D. on 05/31/2019 at 11:37 Elbow x-ray: Radiologist's impression: [address] [address] XRay Report Signed Patient: Farida Nair JMR#: [id number] : 1940Acct:[id number] Age/Sex: 78 / FDate of Service: 05/31/19 Loc: ED Accession Number: [id number] Procedure: XR elbow RT min 3V Ordering Provider: Marilu RosenP- PROCEDURE: XR ELBOW RT MIN 3V INDICATIONS: pain after hitting on counter TECHNIQUE: 3 views of the elbow were acquired. COMPARISON: [facility], CR, XR WRIST RT MIN 3V, 05/31/2019, 12:01. FINDINGS: Bones: No fractures or dislocations. No suspicious bony lesions. Age- appropriate bony degenerative changes are seen. Soft tissues: No elbow joint effusion. No suspicious soft tissue calcifications. IMPRESSION: Negative plain films. Dictated by: Micah Cash M.D. on 05/31/2019 at 11:35 Approved by: Micah Cash M.D. on 05/31/2019 at 11:36 [facility] Narrative Medical decision making narrative: The patient is a 78-year-old female with history of osteoporosis and antiphospholipid syndrome who presents with a chief complaint of right wrist and elbow pain after trying to catch some bowls falling out of a covered. She is concerned about fracture, but her x-ray show no acute fracture. Given her slight overlying erythema, concerned about cellulitis. However patient states that erythema is reducing, but she thinks it is due to rubbing her wrist and elbow on the counters. She denies any systemic illness, denies any fevers nausea vomiting or diarrhea. She would like to hold off on antibiotic treatment at this point time and follow up with PCP as scheduled on Sunday. I discussed at length the possibility of occult fracture, use [id number] medications as well as ice as needed and able. Patient has been have no questions or concerns upon discharge and state understanding of return precautions as well as follow-up care. Discharge Plan Departure Patient Disposition: Home Clinical Impression: Elbow pain Qualifiers: Laterality: right Qualified Code(s): M25.521 - Pain in right elbow Acute wrist pain Qualifiers: Laterality: right Qualified Code(s): M25.531 - Pain in right wrist Discharge Date/Time: 05/31/19 13:19 Instructions: How To Perform RICE (Rest, Ice, Compress, Elevate), DI for Elbow Pain, DI for Wrist Pain Activity Restrictions/Additional Instructions: As I discussed, your x-ray shows no acute fracture. This does not rule out a soft tissue injury such as a ligament or tendon injury. It is important that you follow up with primary care provider, especially if worsening or no improvement. There can be fractures that did not show up on initial x-ray. Please follow up with primary care provider as scheduled on Sunday. Please use rest ice compression elevation as well as [id number] pain medications as needed and able. As discussed, you have slight redness around her wrist and elbow. Please monitor for signs and symptoms of infection such as extending redness, fever, drainage etc. You have elected to hold off on antibiotics for now, but please come back to emergency department for any acute concerns Prescriptions: No Action triamcinolone acetonide [Nasacort] 55 MCG/PUFF aerosol,spray 1 puff Intranasal QDAYP PRN (Reason: Congestion) Qty: 0 RF: 0 levothyroxine 112 MCG tablet 0.1 mg PO QDAY Qty: 0 RF: 0 fluticasone propion-salmeterol [Advair Diskus] 250 MCG/50 MCG blister with device 1 puff INH BID Qty: 0 RF: 0 acetaminophen [Tylenol Extra Strength] 500 MG tablet 500 mg PO Q6HP PRN (Reason: Pain, Mild) Qty: 0 RF: 0 [ALAWAY 0.025%] 1 drp OPHTH BID Qty: 0 RF: 0 atorvastatin 80 mg tablet 80 mg PO BEDTIME RF: 0 nystatin 100,000 unit/mL suspension 5 ml PO QID RF: 0 cetirizine [Zyrtec] 10 mg Tablet 10 mg PO DAILY PRN (Reason: Allergy Symptoms) RF: 0 ketotifen fumarate [Alaway] 0.025 % (0.035 %) Drops 1 drp ophthalmic (eye) BID RF: 0 warfarin 2 mg tablet 3 mg PO DAILY RF: 0 furosemide 20 mg tablet 40 mg PO DAILY RF: 0 levalbuterol tartrate [Xopenex HFA] 45 mcg/actuation Hfa Aerosol Inhaler 1 puff INHALATION Q4H PRN (Reason: Shortness Of Breath) RF: 0 Vitamin D3 3,000 unit tablet 1 tab PO DAILY RF: 0 budesonide 3 MG capsule,delayed,extend.release 9 mg PO QDAY RF: 0 nitroglycerin 0.3 mg Tablet, Sublingual 0.6 mg SUBLINGUAL Q5-15M PRN (Reason: Chest Pain) RF: 0 potassium chloride 20 mEq/15 mL Liquid 20 meq PO DAILY RF: 0 cyclobenzaprine 10 mg Tablet 10 mg PO Q6HR PRN (Reason: Spasms) Qty: 30 RF: 0 sennosides [senna] 8.6 mg Tablet 17.2 mg PO BID Qty: 20 RF: 0 hydrocodone-acetaminophen 5-325 mg Tablet 0.5 tab PO Q6HR PRN (Reason: Pain, Moderate (4-6)) Qty: 30 RF: 0 hydrocodone-acetaminophen 5-325 mg Tablet 1 tab PO Q4HR PRN (Reason: Pain, Moderate (4-6)) Qty: 30 RF: 0 lidocaine 5 % Adhesive Patch,Medicated 1 ea topical 1900 Qty: 30 RF: 0 diazepam 5 mg Tablet 2.5 mg PO BID Qty: 20 RF: 0 diphenoxylate-atropine 2.5 MG/0.025 MG tablet 1 tab PO Q6HP PRN (Reason: Diarrhea) Qty: 30 RF: 0 diphenoxylate-atropine [Lomotil] 2.5-0.025 mg Tablet 1 tab PO Q6-8H PRN (Reason: Diarrhea) Qty: 30 RF: 0 diazepam [Valium] 5 MG tablet 5 mg PO Q8HP PRN (Reason: Anxiety) Qty: 30 RF: 0 oxycodone-acetaminophen [Percocet] 5-325 mg tablet 2 tab PO Q6HR Qty: 10 RF: 0 metronidazole [Flagyl] 500 mg tablet 500 mg PO Q8H Qty: 21 RF: 0 ciprofloxacin HCl [Cipro] 500 mg tablet 500 mg PO Q12H Qty: 14 RF: 0 amoxicillin-pot clavulanate [Augmentin] 875-125 mg tablet 1 tab PO Q12H Qty: 14 RF: 0 (DME) Respironics DreamStation Auto CPAP Qty: 1 RF: 0 metoprolol succinate 50 mg tablet extended release 24 hr 50 mg PO DAILY RF: 0 mirtazapine 7.5 mg tablet 7.5 mg PO DAILY RF: 0 ranitidine HCl [Zantac] 150 mg tablet 150 mg PO DAILY RF: 0 clopidogrel [Plavix] 75 mg tablet 75 mg PO DAILY RF: 0 Referrals: Iggy Trujillo MD [Primary Care Provider] -
== END 2019-05-31 13:19 | disposition home or self-care (01) ==
PROVIDERS: Emergency Provider Nurse Practitioner Family; PCP Internal Medicine
DX: M25.521 Pain in right elbow (principal); M25.531 Pain in right wrist; W22.8XXA Striking against or struck by other objects, initial encounter
CPT/HCPCS: 73080; 73110; 99283

== ENCOUNTER → 2019-07-24 11:37 | Outpatient (CLI) | payer MEDICARE, OTHER, SELFPAY ==
[2018-12-02 03:32] VITALS: BMI 27.1
[2019-07-24 12:43] LABS: BUN Creatinine Ratio 35.7 (6-22); Blood Urea Nitrogen 25 mg/dL (7-17); Calcium 9.4 mg/dL (8.4-10.2); Carbon Dioxide 36 mmol/L (22-32); Chloride 97 mmol/L (98-107); Estimated Glomerular Filt Rate > 60.0 mL/min (>60); Glucose 69 mg/dL (80-110); HEMOLYSIS < 15 (0-50); Potassium 3.5 mmol/L (3.4-5.1); Sodium 140 mmol/L (137-145)
== END ==
PROVIDERS: PCP Internal Medicine; Visit Provider Internal Medicine
DX: R07.9 Chest pain, unspecified (principal); I35.0 Nonrheumatic aortic (valve) stenosis
CPT/HCPCS: 36415; 80048

== ENCOUNTER → 2019-08-01 13:33 | Outpatient (CLI) | payer MEDICARE, OTHER, SELFPAY ==
[2018-12-02 03:32] VITALS: BMI 27.1
--- NOTE | 2019-08-01 | DI.ECHO.S_ITS ---
[facility] +---------+ : : [address] [place] [address] : : : : [id number] : : : : Phone: [phone]+ Echocardiogram Report + + :Name: GABRIELA LAWRENCE Study Date: 08/01/2019 Height: 62 in : :[facility] Weight: 148 lb : : Gender: Female BSA: 1.7 m2 : :: 1940 Age: 78 yrs BP: 142/90 mmHg: :Reason For Study: Aortic valve stenosis : :Ordering Physician: Airam : :Nasima Chambers Performed By: Augustina Page : + + Interpretation Summary Afib with controlled rate. Normal LV size; mild concentric LVH; normal wall motion and LV systolic function. EF is 60-65%. Severe LA enlargement; mild RA enlargement. Otherwise normal chamber sizes. Aortic valve has been replaced by history via TAVR. Prosthesis is functioning normally. Mitral valve leaflets and subchordal apparatus are moderately thickened and calcified with moderate associated MAC and mild MR. There is mild-moderate TR; estimated PA systolic pressure is 37 mm Hg assuming RA pressure of 3 mm Hg. Compared to prior study 12/02/2018 no significant changes have occurred. Procedure: A two-dimensional transthoracic echocardiogram with color flow and Doppler was performed. The study quality was technically adequate. Comparison is made with the echocardiogram of 12/02/2018. The heart rate ranged between 56-77 bpm during the study. Left Ventricle: The left ventricular cavity is small. Left ventricular wall thickness is mildly increased. The ejection fraction is estimated to be 70- 75%. There is a borderline dyssynchronous contraction pattern, consistent with a conduction abnormality. There are no focal wall motion abnormalities. Right Ventricle: The right ventricle is normal size. Atria: The left atrium is severely dilated. The right atrium is mildly dilated. There is no Doppler evidence for an interatrial shunt. Mitral Valve: The mitral valve leaflets appear mildly thickened, but open well. There is moderate mitral annular calcification. There is mild mitral regurgitation. Aortic Valve: There is a bioprosthetic aortic valve. The prosthetic aortic valve is well-seated. The gradients through the prosthetic aortic valve are within the normal range for this type of valve. There is mild intravalvular regurgitation through the prosthetic aortic valve. The peak aortic velocity is 2.2 m/sec. The peak aortic velocity on the previous exam was 1.5 m/sec. The aortic valve mean gradient is 9.1 mmHg. Tricuspid Valve: The tricuspid valve is normal. There is mild to moderate tricuspid regurgitation. The right ventricular systolic pressure is estimated to be at least 37 mmHg based on an estimated right atrial pressure of 3 mm Hg. Pulmonic Valve: The pulmonic valve is not well visualized. There is mild pulmonic regurgitation. Great Vessels: The aortic root is not well visualized but is probably normal size. The ascending aorta is normal in size. The pulmonary artery is not well visualized, but is probably normal size. The IVC is of normal diameter and collapses greater than 50% with a sniff. This suggests a low right atrial pressure of 3 mm Hg. Pericardium/ Pleura There is no pericardial effusion. There is no pleural effusion. MMode/2D Measurements & Calculations LVIDd: 3.3 cm LVOT diam: 1.9 cm LVIDs: 1.9 cm Ao root diam: 2.6 cm FS: 43.1 % asc Aorta Diam: 2.8 cm EPSS: 0.62 cm IVSd: 1.1 cm LVPWd: 0.96 cm LV montemayor. diameter/BSA (cm/m^2): 2.0 LV sys. diameter/BSA (cm/m^2): 1.1 LA A2 area: 29.3 cm2 RA long axis: 6.0 cm LA A4 area: 36.1 cm2 RA area: 20.2 cm2 LA length (vol): 7.5 cm RA vol: 58.1 ml LA vol: 119.7 ml RA : 34.5 ml/m2 LA vol index: 71.2 ml/m2 IVC diam: 1.6 cm RVD1 (basal): 3.6 cm RVD2 (mid): 3.0 cm TAPSE: 1.4 cm Doppler Measurements & Calculations Ao V2 max: 215.7 cm/sec LVOT Max Prabhu: 96.3 cm/sec Ao V2 mean: 140.3 cm/sec LV V1 max P.7 mmHg Ao max P.6 mmHg LV V1 VTI: 16.9 cm Ao mean P.1 mmHg BLAKE(I,D): 1.4 cm2 Ao V2 VTI: 34.7 cm BLAKE(V,D): 1.3 cm2 sev ratio: 0.49 BLAKE indexed to BSA (cm^2/m^2): 0.81 MV E max prabhu: 95.5 cm/sec TR max prabhu: 289.4 cm/sec MV A max prabhu: 34.9 cm/sec TR max P.5 mmHg MV E/A: 2.7 PA V2 max: 101.9 cm/sec Med Peak E' Prabhu: 5.2 cm/sec PA V2 mean: 64.9 cm/sec E/E' med: 18.3 PA mean P.9 mmHg MV dec time: 0.26 sec PA Accel Time: 0.07 sec MV P1/2t: 74.4 msec MV P1/2t max prabhu: 93.0 cm/sec SV(LVOT): 47.4 ml MVA(P1/2t): 3.0 cm2 Electronically signed by: Airam Del Real M.D. on Reading Physician:08/04/2019 10:07 AM
== END ==
PROVIDERS: PCP Internal Medicine; Visit Provider Internal Medicine
DX: I08.3 Combined rheumatic disorders of mitral, aortic and tricuspid valves (principal); Z95.2 Presence of prosthetic heart valve
CPT/HCPCS: 93306

== ENCOUNTER → 2019-08-07 11:28 | Outpatient (CLI) | payer MEDICARE, OTHER, SELFPAY ==
[2018-12-02 03:32] VITALS: BMI 27.1
[2019-08-07 12:41] LABS: Blood Urea Nitrogen 32 mg/dL (7-17); Calcium 9.4 mg/dL (8.4-10.2); Carbon Dioxide 32 mmol/L (22-32); Chloride 87 mmol/L (98-107); Estimated Glomerular Filt Rate > 60.0 mL/min (>60); Glucose 100 mg/dL (80-110); HEMOLYSIS < 15 (0-50); Potassium 4.2 mmol/L (3.4-5.1); Sodium 130 mmol/L (137-145)
== END ==
PROVIDERS: PCP Internal Medicine; Referring Provider Internal Medicine; Visit Provider Internal Medicine
DX: E87.6 Hypokalemia (principal)
CPT/HCPCS: 36415; 80048

== ENCOUNTER → 2019-08-22 11:37 | Outpatient (CLI) | payer MEDICARE, OTHER, SELFPAY ==
[2018-12-02 03:32] VITALS: BMI 27.1
[2019-08-22 13:24] LABS: BUN Creatinine Ratio 34.4 (6-22); Blood Urea Nitrogen 31 mg/dL (7-17); Calcium 9.9 mg/dL (8.4-10.2); Carbon Dioxide 37 mmol/L (22-32); Chloride 94 mmol/L (98-107); Estimated Glomerular Filt Rate > 60.0 mL/min (>60); Glucose 81 mg/dL (80-110); HEMOLYSIS < 15 (0-50); Magnesium 2.3 mg/dL (1.6-2.3); Potassium 5.3 mmol/L (3.4-5.1); Sodium 137 mmol/L (137-145)
[2019-08-22 13:34] LABS: Free T4, Direct Thyroxine 1.74 ng/dL (0.78-2.19)
[2019-08-22 13:48] LABS: Thyroid Stimulating Hormone 0.28 uIU/mL (0.47-4.68)
== END ==
PROVIDERS: PCP Internal Medicine; Referring Provider Internal Medicine; Visit Provider Internal Medicine
DX: E87.1 Hypo-osmolality and hyponatremia (principal)
CPT/HCPCS: 36415; 80048; 83735; 84439; 84443

== ENCOUNTER → 2019-09-17 10:14 | Outpatient (CLI) | payer MEDICARE, OTHER, SELFPAY ==
[2018-12-02 03:32] VITALS: BMI 27.1
[2019-09-17 11:01] LABS: BUN Creatinine Ratio 34.9 (6-22); Blood Urea Nitrogen 29 mg/dL (7-17); Calcium 9.5 mg/dL (8.4-10.2); Carbon Dioxide 35 mmol/L (22-32); Chloride 94 mmol/L (98-107); Estimated Glomerular Filt Rate > 60.0 mL/min (>60); Glucose 106 mg/dL (80-110); HEMOLYSIS < 15 (0-50); Potassium 4.6 mmol/L (3.4-5.1); Sodium 136 mmol/L (137-145)
== END ==
PROVIDERS: PCP Internal Medicine; Referring Provider Internal Medicine; Visit Provider Internal Medicine
DX: E87.5 Hyperkalemia (principal)
CPT/HCPCS: 36415; 80048

== ENCOUNTER → 2019-10-15 11:25 | Outpatient (CLI) | payer MEDICARE, OTHER, SELFPAY ==
[2018-12-02 03:32] VITALS: BMI 27.1
[2019-10-15 13:05] LABS: BUN Creatinine Ratio 45.6 (6-22); Blood Urea Nitrogen 36 mg/dL (7-17); Calcium 9.2 mg/dL (8.4-10.2); Carbon Dioxide 37 mmol/L (22-32); Chloride 82 mmol/L (98-107); Estimated Glomerular Filt Rate > 60.0 mL/min (>60); Glucose 77 mg/dL (80-110); HEMOLYSIS 38 (0-50); Potassium 3.9 mmol/L (3.4-5.1); Sodium 126 mmol/L (137-145)
== END ==
PROVIDERS: PCP Internal Medicine; Referring Provider Internal Medicine; Visit Provider Internal Medicine
DX: E87.6 Hypokalemia (principal)
CPT/HCPCS: 36415; 80048

== ENCOUNTER → 2019-11-13 11:54 | Outpatient (CLI) | payer MEDICARE, OTHER, SELFPAY ==
[2018-12-02 03:32] VITALS: BMI 27.1
[2019-11-13 12:58] LABS: BUN Creatinine Ratio 41.4 (6-22); Blood Urea Nitrogen 36 mg/dL (7-17); Calcium 9.7 mg/dL (8.4-10.2); Carbon Dioxide 36 mmol/L (22-32); Chloride 87 mmol/L (98-107); Estimated Glomerular Filt Rate > 60.0 mL/min (>60); Glucose 76 mg/dL (80-110); HEMOLYSIS < 15 (0-50); Potassium 3.7 mmol/L (3.4-5.1); Sodium 133 mmol/L (137-145)
== END ==
PROVIDERS: PCP Internal Medicine; Referring Provider Internal Medicine; Visit Provider Internal Medicine
DX: I50.31 Acute diastolic (congestive) heart failure (principal)
CPT/HCPCS: 36415; 80048

== ENCOUNTER → 2019-12-18 11:31 | Outpatient (CLI) | payer MEDICARE, OTHER, SELFPAY ==
[2018-12-02 03:32] VITALS: BMI 27.1
[2019-12-18 12:53] LABS: BUN Creatinine Ratio 45.5 (6-22); Blood Urea Nitrogen 45 mg/dL (7-17); Calcium 9.2 mg/dL (8.4-10.2); Carbon Dioxide 38 mmol/L (22-32); Chloride 82 mmol/L (98-107); Estimated Glomerular Filt Rate 54.1 mL/min (>60); Glucose 85 mg/dL (80-110); HEMOLYSIS < 15 (0-50); Sodium 126 mmol/L (137-145)
== END ==
PROVIDERS: PCP Internal Medicine; Referring Provider Internal Medicine; Visit Provider Internal Medicine
DX: I50.31 Acute diastolic (congestive) heart failure (principal)
CPT/HCPCS: 36415; 80048

== ENCOUNTER 2019-12-20 21:26 | Emergency (ER) | payer MEDICARE, OTHER, SELFPAY ==
[2018-12-02 03:32] VITALS: BMI 27.1
[2019-12-20 21:30] VITALS: BP 146/7; PULSE 69; RESP 24; TEMP 36.3; O2SAT 99; BMI 30.9
[2019-12-20 21:40] VITALS: BP 146/76; PULSE 63; O2SAT 98
--- NOTE | 2019-12-20 21:41 | DI.RAD.S_ITS ---
PROCEDURE: XR KNEE LT 1TO2V INDICATIONS: fall with severe knee pain TECHNIQUE: 2 views of the knee were acquired. COMPARISON: None. FINDINGS: Bones: No fractures or dislocations. No suspicious bony lesions. Moderate to severe tricompartmental osteoarthritis is noted more prominent in the medial femoral tibial compartment. Soft tissues: Marked soft tissue swelling alignment. SPECT of left knee is seen. Small to moderate joint effusion is seen. No suspicious soft tissue calcifications. IMPRESSION: No gross acute left knee fracture or dislocation. Marked anterior soft tissue swelling. Small to moderate suprapatellar joint effusion. Moderate to severe tricompartmental osteoarthritis more prominent in medial femoral tibial compartment. Dictated by: Lucio Piña M.D. on 12/20/2019 at 22:03 Approved by: Lucio Piña M.D. on 12/20/2019 at 22:05
[2019-12-20 22:04] VITALS: PULSE 82
--- NOTE | 2019-12-20 22:13 | DI.CT.S_ITS ---
PROCEDURE: CT LE LT W CON INDICATIONS: fall with severe pain, swelling, no fracture on xray TECHNIQUE: Noncontrast 1-1.5 mm axial sections acquired from the mid-patella to the proximal tibia, with coronal and sagittal reformats. COMPARISON: [facility], , XR KNEE LT 1TO2V, 12/20/2019, 21:48. FINDINGS: Image quality: Diagnostic. Bones: No acute fracture, dislocation, or suspicious osseous lesion is identified involving the left knee. There are severe degenerative changes of the knee that are most pronounced within the medial tibiofemoral compartment with joint space narrowing, subchondral sclerosis, and large marginal osteophytes. Additional marginal osteophytes are noted within the other 2 compartments of the knee. Spurring of the tibial spines is noted. There also is a prominent marginal osteophyte along the medial aspect of the femoral notch. Soft tissues: There is prominent pre-patellar edema and fluid identified. No drainable fluid collection is evident. There is a small to moderate-sized knee joint effusion containing intra-articular joint bodies. Scattered vascular calcifications of the knee are present. No soft tissue masses are present. Please note that the ligamentous, tendinous, and cartilaginous structures of the knee are not adequately characterized on CT. IMPRESSION: 1. No acute fractures of the knee. 2. Advanced degenerative changes of the knee are most pronounced within the medial compartment. 3. Prominent prepatellar edema may be related to soft tissue injury. Bursitis may also have this appearance. 4. Moderate-sized knee joint effusion containing joint bodies. Note: The preliminary report provided by [employer] is concordant with the final report. Dictated by: Roosevelt Adamson M.D. on 12/21/2019 at 8:11 Approved by: Roosevelt Adamson M.D. on 12/21/2019 at 8:14
[2019-12-20 22:15] LABS: Add Manual Diff / Slide Review NO; Basophils Absolute Auto 0 /uL (0-100); Basophils Percent Auto 0.3 % (0-2); Eosinophils Absolute Auto 0 /uL (0-450); Eosinophils Percent Auto 0.1 % (2-4); Hematocrit 33.3 % (36-46); Hemoglobin 11.3 g/dL (12.0-16.0); Lymphocytes Absolute Auto 1700 /uL (1100-4500); Lymphocytes Percent Auto 11.8 % (25-40); Mean Corpuscular HGB Conc 33.9 % (30-36); Mean Corpuscular Hemoglobin 28.9 PG (26-34); Mean Corpuscular Volume 85.2 fL (80-100); Monocytes Absolute Auto 1300 /uL (0-900); Monocytes Percent Auto 9.1 % (3-14); Neutrophils Absolute Auto 11300 /uL (1500-7000); Neutrophils Percent Auto 78.7 % (50-75); Platelet Count 247 X10^3/uL (150-400); Red Blood Cell Count 3.91 X10^6/uL (4.0-5.2); Red Cell Distribution Width 15.6 % (11.6-14.8); White Blood Cell Count 14.4 X10^3/uL (4.5-11.0)
[2019-12-20 22:17] LABS: INR 2.9 (0.9-1.3); Prothrombin Time 33.2 SECONDS (10.1-12.7)
[2019-12-20 22:58] VITALS: BP 115/56; PULSE 65; RESP 16; TEMP 36.7; O2SAT 97
--- NOTE | 2019-12-20 23:50 | ED_ITS ---
HPI - Extremity Injury (Lower) General Chief Complaint: Extremity Injury, Lower Stated Complaint: fall Sunday, left leg is throbbing Time Seen by Provider: 12/20/19 21:35 Source: patient Mode of arrival: Wheelchair Limitations: no limitations History of Present Illness HPI Narrative: 78F non-smoker with history of CHF, LISA, AV replacement on coumadin presents with her and a chief complaint of severe left knee pain and a massive hematoma on her left leg after an accidental, ground level mechanical fall a few days ago. She was walking and tripped forward onto her knee and since then has had increasing pain. She denies any head, neck or back pain. She denies any loss of consciousness nor nausea, vomiting or diarrhea. She denies any chest pain or shortness of breath. She denies any symptoms other than pain in her left knee. She is able to ambulate but with some discomfort. Related Data Home Medications Medication Instructions Recorded Confirmed triamcinolone acetonide [Nasacort] 1 puff INTRANASAL QDAYP PRN #0 07/31/11 05/08/19 levothyroxine 0.1 mg PO QDAY #0 03/01/12 05/08/19 acetaminophen [Tylenol Extra 500 mg PO Q6HP PRN #0 12/28/12 05/08/19 Strength] fluticasone propion-salmeterol 1 puff INH BID #0 12/28/12 05/08/19 [Advair Diskus] [ALAWAY 0.025%] 1 drp OPHTH BID #0 09/10/17 05/08/19 Vitamin D3 1 tab PO DAILY 12/10/17 05/08/19 atorvastatin 80 mg PO BEDTIME 12/10/17 05/08/19 budesonide 9 mg PO QDAY 12/10/17 05/08/19 cetirizine [Zyrtec] 10 mg PO DAILY PRN 12/10/17 05/08/19 furosemide 40 mg PO DAILY 12/10/17 05/08/19 ketotifen fumarate [Alaway] 1 drp OPHTHALMIC (EYE) BID 12/10/17 05/08/19 levalbuterol tartrate [Xopenex HFA] 1 puff INHALATION Q4H PRN 12/10/17 05/08/19 nystatin 5 ml PO QID 12/10/17 05/08/19 warfarin 3 mg PO DAILY 12/10/17 05/08/19 Respironics DreamStation Auto CPAP #1 ea 08/08/18 05/08/19 metoprolol succinate 50 mg 50 mg PO DAILY 08/09/18 05/08/19 tablet,extended release 24 hr clopidogrel 75 mg tablet 75 mg PO DAILY 11/07/18 05/08/19 mirtazapine 7.5 mg tablet 7.5 mg PO DAILY 11/07/18 05/08/19 ranitidine HCl 150 mg tablet 150 mg PO DAILY 11/07/18 05/08/19 nitroglycerin 0.6 mg SUBLINGUAL Q5-15M PRN 12/02/18 05/08/19 potassium chloride 20 meq PO DAILY 12/02/18 05/08/19 Previous Rx's Medication Instructions Recorded cyclobenzaprine 10 mg PO Q6HR PRN #30 tab 12/06/18 diazepam 2.5 mg PO BID #20 tab 12/06/18 diazepam [Valium] 5 mg PO Q8HP PRN #30 tab 12/06/18 diphenoxylate-atropine 1 tab PO Q6HP PRN #30 tab 12/06/18 diphenoxylate-atropine [Lomotil] 1 tab PO Q6-8H PRN #30 tab 12/06/18 hydrocodone-acetaminophen 0.5 tab PO Q6HR PRN #30 tab 12/06/18 hydrocodone-acetaminophen 1 tab PO Q4HR PRN #30 tab 12/06/18 lidocaine 1 ea TOPICAL 1900 #30 ea 12/06/18 sennosides [senna] 17.2 mg PO BID #20 tab 12/06/18 oxycodone-acetaminophen [Percocet] 2 tab PO Q6HR #10 tab 01/25/19 amoxicillin-pot clavulanate 1 tab PO Q12H #14 tab 02/22/19 [Augmentin] ciprofloxacin HCl [Cipro] 500 mg PO Q12H #14 tab 02/22/19 metronidazole [Flagyl] 500 mg PO Q8H #21 tab 02/22/19 Allergies Allergy/AdvReac Type Severity Reaction Status Date / Time azithromycin Allergy Severe Difficulty Verified 05/31/19 11:55 Breathing Sulfa (Sulfonamide Allergy Mild Verified 05/31/19 11:55 Antibiotics) propoxyphene AdvReac Intermediate UPSET Verified 05/31/19 11:55 STOMACH aspirin AdvReac Mild CONTRAINDICATED Verified 05/31/19 11:55 WITH WARFARIN pantoprazole AdvReac Gastrointestinal Verified 05/31/19 11:55 Upset trazodone AdvReac Depression Verified 05/31/19 11:55 Review of Systems Constitutional Constitutional: Denies chills, Denies fatigue, Denies fever(s), Denies frequent falls, Denies lethargy and Denies weakness Eyes Eyes: Denies change in vision, Denies eye discharge, Denies irritation and Denies loss of vision ENT Ears, Nose, Mouth, and Throat: Denies change in voice, Denies dizziness, Denies neck pain, Denies sore throat and Denies throat swelling Cardiovascular Cardiovascular: Denies chest pain, Denies irregular heart rhythm, Denies lighthe adedness, Denies palpitations, Denies dyspnea, Denies dyspnea on exertion and Denies orthopnea Respiratory Respiratory: Denies cough, Denies dyspnea, Denies dyspnea on exertion and Denies wheezing Gastrointestinal Gastrointestinal: Denies abdominal pain, Denies change in bowel habits, Denies diarrhea, Denies nausea and Denies vomiting Musculoskeletal Musculoskeletal: Reports arthralgias, Reports joint swelling, Denies neck pain and Denies numbness Integumentary/Breasts Skin/Breast: Denies pruritus, Denies erythema, Denies rash, Reports unusual bruising and Denies wounds Neurologic Neurologic: Denies behavioral changes, Denies confusion, Denies dizziness, Denies frequent falls, Denies loss of vision, Denies numbness and Denies weakness Psychiatric Psychiatric: Denies anxiety, Denies behavioral changes, Denies confusion, Denies depression, Denies homicidal ideation and Denies suicidal ideation Endocrine Endocrine: Denies fatigue, Denies flushing and Denies palpitations Hematologic/Lymphatic Hematologic/Lymphatic: Denies easy bruising Allergic/Immunologic Allergic/Immunologic: Denies urticaria, Denies throat swelling and Denies wheezing Patient History Medical History Acute chest pain (Acute) Anti-phospholipid syndrome (Acute) Asthma (Acute) Chronic atrial fibrillation (Acute) Colitis (Acute) 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 (Acute) IBS (irritable bowel syndrome) (Acute) Laceration (Inactive) Obstructive sleep apnea of adult (Chronic) Surgical History H/O prosthetic aortic valve replacement (Acute) History of cholecystectomy (Acute) History of coronary artery stent placement (Acute) History of ear surgery (Acute) History of hysterectomy (Acute) History of mandibular surgery (Acute) History of sinus surgery (Acute) Social History marital status: details: to Alena, lives in [place] household members: spouse lives independently: Yes caregiver/support person: No housing: house Smoking Status: Never smoker alcohol intake: never Smoking Status: Never smoker alcohol intake frequency: 0-2 drinks per day Substance Use Type: does not use Exam Narrative Exam Narrative: GENERAL: [78] year old patient appears stated age. Well- nourished, well-developed patient, in mild distress. HEAD: Atraumatic. Normocephalic. EYES: Pupils equal round and reactive. Extraocular motions intact. No scleral icterus. No injection or drainage. ENT: Poor dentition. Nose without bleeding, purulent drainage. Throat without erythema, tonsillar hypertrophy or exudate. Airway patent. NECK: Trachea midline. Non tender CARDIOVASCULAR: Regular rate and rhythm without murmurs, gallops, or rubs. RESPIRATORY: Decreased breath sounds with faint crackles in bilateral bases GASTROINTESTINAL: Abdomen soft, non-tender, nondistended. EXTREMITIES: Tenderness to palpation of lateral joint line of left knee. No ligamentous instability. Large, dark purple hematoma or of left knee and much of the lower extremity. BACK: Nontender without deformity or crepitance. No flank tenderness. NEURO: AOx3. SKIN: No rash or erythema of visible areas Initial Vital Signs Initial Vital Signs: Vital Signs Temperature 97.4 F L 12/20/19 21:30 Pulse Rate 69 12/20/19 21:30 Respiratory Rate 24 12/20/19 21:30 Blood Pressure 146/7 H 12/20/19 21:30 Pulse Oximetry 99 12/20/19 21:30 Course Orders Ordered: ED Orders 12/20/19 22:01 Complete Blood Count AUTO DIFF Stat Prothrombin Time INR Stat 12/20/19 22:13 CT LE LT wo con Stat Discontinued Medications Hydrocodone Bitart/Acetaminophen (Vicodin 5/325 Prepack) 1 bottle MISC SEEINSTR ONE Stop: 12/21/19 00:09 Last Admin: 12/21/19 00:14 Dose: 1 bottle Documented by: JOSE Vital Signs Vital signs: Vital Signs - 8 hr 12/20/19 22:58 12/21/19 00:19 Temperature 98.1 F Pulse Rate 65 52 L Respiratory Rate 16 16 Blood Pressure [Right Arm] 115/56 L 130/71 Pulse Oximetry 97 98 MDM - Extremity Injury (Lower) Lab Data Result diagrams: 12/20/19 22:01 Labs: Lab Results 12/20/19 12/20/19 Range/Units 22:01 22:01 WBC 14.4 H (4.5-11.0) X10^3/uL RBC 3.91 L (4.0-5.2) X10^6/uL Hgb 11.3 L (12.0-16.0) g/dL Hct 33.3 L (36-46) % MCV 85.2 (80-100) fL MCH 28.9 (26-34) PG MCHC 33.9 (30-36) % RDW 15.6 H (11.6-14.8) % Plt Count 247 (150-400) X10^3/uL Neut % (Auto) 78.7 H (50-75) % Lymph % (Auto) 11.8 L (25-40) % Archer % (Auto) 9.1 (3-14) % Eos % (Auto) 0.1 L (2-4) % Baso % (Auto) 0.3 (0-2) % Neut # (Auto) 12293 H (4214-7602) /uL Lymph # (Auto) 1700 (9572-5678) /uL Archer # (Auto) 1300 H (0-900) /uL Eos # (Auto) 0 (0-450) /uL Baso # (Auto) 0 (0-100) /uL PT 33.2 H (10.1-12.7) SECONDS INR 2.9 H (0.9-1.3) Imaging Data Knee Xray: My Impression: No Fx CT Knee: Radiologist's Impression: No Fx Discharge Plan Departure Patient Disposition: Home Clinical Impression: Hematoma Acute knee pain Qualifiers: Laterality: left Qualified Code(s): M25.562 - Pain in left knee Discharge Date/Time: 12/21/19 00:21 Instructions: DI for Hematoma (Bruise), DI for Knee Pain Activity Restrictions/Additional Instructions: *You have been diagnosed with [left knee pain and hematoma] *What to do: *Take medications as directed *Follow up with your primary care provider in 2-3 days, call for an appointment. Let them know you were seen in the Emergency Department and that we ask that you be seen in follow up *Return to ER if you should have any new, worsening or concerning symptoms Prescriptions: No Action triamcinolone acetonide [Nasacort] 55 MCG/PUFF aerosol,spray 1 puff Intranasal QDAYP PRN (Reason: Congestion) Qty: 0 RF: 0 levothyroxine 112 MCG tablet 0.1 mg PO QDAY Qty: 0 RF: 0 fluticasone propion-salmeterol [Advair Diskus] 250 MCG/50 MCG blister with device 1 puff INH BID Qty: 0 RF: 0 acetaminophen [Tylenol Extra Strength] 500 MG tablet 500 mg PO Q6HP PRN (Reason: Pain, Mild) Qty: 0 RF: 0 [ALAWAY 0.025%] 1 drp OPHTH BID Qty: 0 RF: 0 atorvastatin 80 mg tablet 80 mg PO BEDTIME RF: 0 nystatin 100,000 unit/mL suspension 5 ml PO QID RF: 0 cetirizine [Zyrtec] 10 mg Tablet 10 mg PO DAILY PRN (Reason: Allergy Symptoms) RF: 0 ketotifen fumarate [Alaway] 0.025 % (0.035 %) Drops 1 drp ophthalmic (eye) BID RF: 0 warfarin 2 mg tablet 3 mg PO DAILY RF: 0 furosemide 20 mg tablet 40 mg PO DAILY RF: 0 levalbuterol tartrate [Xopenex HFA] 45 mcg/actuation Hfa Aerosol Inhaler 1 puff INHALATION Q4H PRN (Reason: Shortness Of Breath) RF: 0 Vitamin D3 3,000 unit tablet 1 tab PO DAILY RF: 0 budesonide 3 MG capsule,delayed,extend.release 9 mg PO QDAY RF: 0 nitroglycerin 0.3 mg Tablet, Sublingual 0.6 mg SUBLINGUAL Q5-15M PRN (Reason: Chest Pain) RF: 0 potassium chloride 20 mEq/15 mL Liquid 20 meq PO DAILY RF: 0 cyclobenzaprine 10 mg Tablet 10 mg PO Q6HR PRN (Reason: Spasms) Qty: 30 RF: 0 sennosides [senna] 8.6 mg Tablet 17.2 mg PO BID Qty: 20 RF: 0 hydrocodone-acetaminophen 5-325 mg Tablet 0.5 tab PO Q6HR PRN (Reason: Pain, Moderate (4-6)) Qty: 30 RF: 0 hydrocodone-acetaminophen 5-325 mg Tablet 1 tab PO Q4HR PRN (Reason: Pain, Moderate (4-6)) Qty: 30 RF: 0 lidocaine 5 % Adhesive Patch,Medicated 1 ea topical 1900 Qty: 30 RF: 0 diazepam 5 mg Tablet 2.5 mg PO BID Qty: 20 RF: 0 diphenoxylate-atropine 2.5 MG/0.025 MG tablet 1 tab PO Q6HP PRN (Reason: Diarrhea) Qty: 30 RF: 0 diphenoxylate-atropine [Lomotil] 2.5-0.025 mg Tablet 1 tab PO Q6-8H PRN (Reason: Diarrhea) Qty: 30 RF: 0 diazepam [Valium] 5 MG tablet 5 mg PO Q8HP PRN (Reason: Anxiety) Qty: 30 RF: 0 oxycodone-acetaminophen [Percocet] 5-325 mg tablet 2 tab PO Q6HR Qty: 10 RF: 0 metronidazole [Flagyl] 500 mg tablet 500 mg PO Q8H Qty: 21 RF: 0 ciprofloxacin HCl [Cipro] 500 mg tablet 500 mg PO Q12H Qty: 14 RF: 0 amoxicillin-pot clavulanate [Augmentin] 875-125 mg tablet 1 tab PO Q12H Qty: 14 RF: 0 (DME) Respironics DreamStation Auto CPAP Qty: 1 RF: 0 metoprolol succinate 50 mg tablet extended release 24 hr 50 mg PO DAILY RF: 0 mirtazapine 7.5 mg tablet 7.5 mg PO DAILY RF: 0 ranitidine HCl [Zantac] 150 mg tablet 150 mg PO DAILY RF: 0 clopidogrel [Plavix] 75 mg tablet 75 mg PO DAILY RF: 0 Referrals: Iggy Trujillo MD [Primary Care Provider] -
[2019-12-21] MEDS: HYDROCODONE/ACET 5/325 PREPACK 1 BOTTLE MISC (00:14)
[2019-12-21 00:19] VITALS: BP 130/71; PULSE 52; RESP 16; O2SAT 98
== END 2019-12-21 00:21 | disposition home or self-care (01) ==
PROVIDERS: Emergency Provider Emergency Medicine; PCP Internal Medicine
DX: S80.02XA Contusion of left knee, initial encounter (principal); M25.562 Pain in left knee; W18.30XA Fall on same level, unspecified, initial encounter; I50.9 Heart failure, unspecified; G47.33 Obstructive sleep apnea (adult) (pediatric); Z79.01 Long term (current) use of anticoagulants; Z95.5 Presence of coronary angioplasty implant and graft
CPT/HCPCS: 36415; 73560; 73700; 85025; 85610; 99284

== ENCOUNTER 2020-01-12 12:29 | Emergency (ER) | payer MEDICARE, OTHER, SELFPAY ==
[2018-12-02 03:32] VITALS: BMI 27.1
[2020-01-12] VITALS (14 sets, daily range): BP systolic 106–141; BP diastolic 60–85; PULSE 54–87; RESP 20; TEMP 36.8; O2SAT 82–100; BMI 28.2
--- NOTE | 2020-01-12 12:55 | PC.NURSE ---
patient has long standing history of poor circulation to lower extremities. Is followed by home health who assists with wound care. patient has blisters to left [place] and a black third toe on tip. Also reports bruising to right hand from accidentally hitting her hand on the telephone.
--- NOTE | 2020-01-12 13:27 | DI.US.S_ITS ---
PROCEDURE: US ARTERIAL DUPLEX LE LT INDICATIONS: BLACK TOE TECHNIQUE: Color and pulse Doppler interrogation was performed of the left lower extremity arterial system, with image documentation. COMPARISON: [facility], ARTERIAL DUPLEX LE LT, 01/17/2018, 13:18. [facility], , US ARTERIAL DUPLEX LE LT, 12/10/2017, 16:59. FINDINGS: Common femoral artery: 46 cm/sec, with biphasic flow. Deep femoral artery: 25.4 cm/sec, with biphasic flow. Proximal superficial femoral artery: 43.7 cm/sec, with biphasic flow. Mid superficial femoral artery: 33.3 cm/sec, with biphasic flow. Distal superficial femoral artery: 41.9 cm/sec, with biphasic flow. Popliteal artery: 27.2 cm/sec, with biphasic flow. Posterior tibial artery: 45.9 cm/sec, with biphasic flow. Anterior tibial artery/dorsalis pedis: 25.7 cm/sec, with biphasic flow. Aponte-scale imaging description: Patent left lower extremity arterial vasculature without focal high-grade stenosis. Note is made of reduced flow velocities and biphasic waveforms throughout the lower extremity in a pattern suggestive of potential stenosis involving the iliac or distal aortic arterial vasculature. IMPRESSION: Biphasic flow, [id number] reduction in flow velocities but patent arterial flow maintained into the tributaries of the left lower extremity arterial arcade. A definite focus of high-grade stenosis is not found nor is embolic disease identified. MRA angiography may be warranted for more accurate assessment for aortic or iliac artery stenosis in this clinical circumstance. Dictated by: Pj Dave M.D. on 01/12/2020 at 16:18 Approved by: Pj Dave M.D. on 01/12/2020 at 16:23
--- NOTE | 2020-01-12 13:27 | DI.RAD.S_ITS ---
PROCEDURE: XR TOE LT MIN 2V INDICATIONS: injury TECHNIQUE: Two views of the left 2nd toe were obtained. COMPARISON: None. FINDINGS: Bones: No acute fracture or dislocation is identified involving the left 2nd toe. No suspicious osseous lesions or definite erosions are appreciated. [id number] degenerative changes of the forefoot joints are present. Soft tissues: No suspicious soft tissue densities. Scattered vascular calcifications are identified. No radiopaque foreign bodies are evident. IMPRESSION: No acute osseous abnormalities of the 2nd toe are evident. Dictated by: Roosevelt Adamson M.D. on 01/12/2020 at 14:25 Approved by: Roosevelt Adamson M.D. on 01/12/2020 at 14:26
--- NOTE | 2020-01-12 13:27 | DI.US.S_ITS ---
PROCEDURE: US [facility] VENOUS LOW EXTREM LT INDICATIONS: SWELLING, PAIN TECHNIQUE: Real-time imaging, as well as color and pulse Doppler interrogation, were performed of the lower extremity deep veins from the inguinal ligament to the popliteal fossa. COMPARISON: [facility], [facility] VENOUS LOW EXTREM LT, 01/17/2018, 13:09. FINDINGS: The common femoral, femoral and popliteal veins are normally compressible, and free of intraluminal thrombus. Color and pulse Doppler demonstrate normal phasic intraluminal flow. There is normal augmentation response to distal compression maneuver. IMPRESSION: Negative for deep venous thrombosis. Dictated by: Micah Cash M.D. on 01/12/2020 at 13:56 Approved by: Micah Cash M.D. on 01/12/2020 at 13:56
--- NOTE | 2020-01-12 13:27 | DI.RAD.S_ITS ---
PROCEDURE: XR HAND RT MIN 3V INDICATIONS: pain after hitting hand TECHNIQUE: 3 views of the hand(s) acquired. COMPARISON: None. FINDINGS: Bones: Severe degenerative changes involving the interphalangeal joints. No definitive osseous erosions are evident. However, there is bony remodeling and large marginal osteophytes. Given the degree of degenerative changes, evaluation for subtle fractures at these joint is suboptimal. No obvious fractures are evident. The remainder of the imaged osseous structures are intact. The bone mineralization is decreased. No dislocations or suspicious osseous lesions are evident Soft tissues: No suspicious soft tissue calcifications. . Soft tissue swelling on the dorsal aspect of the hand is present. No unexpected radiopaque foreign bodies are evident. Vascular calcifications are noted. IMPRESSION: 1. Soft tissue swelling on the dorsal aspect of the hand. No definite fractures. 2. Severe degenerative changes of the hand are most pronounced involving the interphalangeal joints, suggesting a possible inflammatory arthropathy. Please correlate clinically. Dictated by: Roosevelt Adamson M.D. on 01/12/2020 at 14:26 Approved by: Roosevelt Adamson M.D. on 01/12/2020 at 14:28
[2020-01-12] MEDS: HYDROCODONE/ACET 5/325 TABLET 2 TAB PO (13:40)
[2020-01-12 14:13] LABS: Bacteria Urine None Seen
[2020-01-12 14:28] LABS: Culture Indicated Urine Specimen Cultured; RBC Urine 0-1/HPF (0-5/HPF); Squamous Epithelial Cell Urine 0-1 /HPF (0-5/HPF); Transitional Epi Cells Urine 5-10/HPF (0-5/HPF); WBC Urine 0-1/HPF (0-5/HPF)
[2020-01-12 15:10] LABS: Add Manual Diff / Slide Review NO; Basophils Absolute Auto 0 /uL (0-100); Basophils Percent Auto 0.3 % (0-2); Eosinophils Absolute Auto 0 /uL (0-450); Eosinophils Percent Auto 0.1 % (2-4); Hematocrit 35.9 % (36-46); Hemoglobin 11.8 g/dL (12.0-16.0); Lymphocytes Absolute Auto 900 /uL (1100-4500); Lymphocytes Percent Auto 6.1 % (25-40); Mean Corpuscular HGB Conc 32.8 % (30-36); Mean Corpuscular Volume 88.4 fL (80-100); Monocytes Absolute Auto 1000 /uL (0-900); Monocytes Percent Auto 6.7 % (3-14); Neutrophils Absolute Auto 13000 /uL (1500-7000); Neutrophils Percent Auto 86.8 % (50-75); Platelet Count 331 X10^3/uL (150-400); Red Blood Cell Count 4.06 X10^6/uL (4.0-5.2)
[2020-01-12 15:14] LABS: INR 2.3 (0.9-1.3); Prothrombin Time 26.9 SECONDS (10.1-12.7)
[2020-01-12 15:18] LABS: Alanine Aminotransferase 34 IU/L (<35); Albumin 3.3 g/dL (3.5-5.0); Albumin Globulin Ratio 1.1 (1.0-2.8); Alkaline Phosphatase 53 U/L (38-126); Aspartate Aminotransferase 52 IU/L (14-36); Bilirubin Total 1.1 mg/dL (0.2-1.3); Blood Urea Nitrogen 45 mg/dL (7-17); Calcium 8.4 mg/dL (8.4-10.2); Carbon Dioxide 35 mmol/L (22-32); Chloride 89 mmol/L (98-107); Estimated Glomerular Filt Rate 53.3 mL/min (>60); Globulin 2.9 g/dL (1.7-4.1); Glucose 94 mg/dL (80-110); HEMOLYSIS < 15 (0-50); Potassium 3.4 mmol/L (3.4-5.1); Sodium 129 mmol/L (137-145); Total Protein 6.2 g/dL (6.3-8.2)
[2020-01-12] MEDS: cephALEXin 250 MG CAPSULE PO (17:22)
--- NOTE | 2020-01-12 18:39 | PC.NURSE ---
Patient scared to transfer but did well with standby assistance.
--- NOTE | 2020-01-12 19:59 | ED.EXTPRO ---
HPI - Extremity Problem <Marilu Rodriguezmer, EDI SPECIALIST-BC - Last Filed: 01/12/20 20:34> General Chief complaint: Extremity Problem,Nontraumatic Stated complaint: Hard black area on toe,hx same,here recently Time Seen by Provider: 01/12/20 13:08 Source: patient and EMS Mode of arrival: EMS Limitations: no limitations History of Present Illness HPI Narrative: The patient is an 79-year-old female nonsmoker with history of prosthetic aortic valve, obstructive sleep apnea CHF hypothyroid and atrial fibrillation who presents with a chief complaint of a hard black area on her toe. She and her have noted a black area on the distal aspect of her left 2nd toe for the past week or so. They saw visiting nurse today, who referred them to the emergency department. is also concerned about the patient's right hand. He states it is red swollen and painful. She was recently admitted at [facility] for CHF exacerbation and they diagnosed that area with phlebitis. They are concerned about increasing infection. She denies any fevers nausea vomiting or diarrhea. She does note that she has wounds on her right lower leg that is wrapped, as well as a wound on her left knee that is dressed by wound care at [facility]. She denies any fevers nausea vomiting diarrhea or signs of systemic illness. Related Data Home Medications Medication Instructions Recorded Confirmed triamcinolone acetonide [Nasacort] 1 puff INTRANASAL QDAYP PRN #0 07/31/11 05/08/19 levothyroxine 0.1 mg PO QDAY #0 03/01/12 05/08/19 acetaminophen [Tylenol Extra 500 mg PO Q6HP PRN #0 12/28/12 05/08/19 Strength] fluticasone propion-salmeterol 1 puff INH BID #0 12/28/12 05/08/19 [Advair Diskus] [ALAWAY 0.025%] 1 drp OPHTH BID #0 09/10/17 05/08/19 Vitamin D3 1 tab PO DAILY 12/10/17 05/08/19 atorvastatin 80 mg PO BEDTIME 12/10/17 05/08/19 budesonide 9 mg PO QDAY 12/10/17 05/08/19 cetirizine [Zyrtec] 10 mg PO DAILY PRN 12/10/17 05/08/19 furosemide 40 mg PO DAILY 12/10/17 05/08/19 ketotifen fumarate [Alaway] 1 drp OPHTHALMIC (EYE) BID 12/10/17 05/08/19 levalbuterol tartrate [Xopenex HFA] 1 puff INHALATION Q4H PRN 12/10/17 05/08/19 nystatin 5 ml PO QID 12/10/17 05/08/19 warfarin 3 mg PO DAILY 12/10/17 05/08/19 Respironics DreamStation Auto CPAP #1 ea 08/08/18 05/08/19 metoprolol succinate 50 mg 50 mg PO DAILY 08/09/18 05/08/19 tablet,extended release 24 hr clopidogrel 75 mg tablet 75 mg PO DAILY 11/07/18 05/08/19 mirtazapine 7.5 mg tablet 7.5 mg PO DAILY 11/07/18 05/08/19 ranitidine HCl 150 mg tablet 150 mg PO DAILY 11/07/18 05/08/19 nitroglycerin 0.6 mg SUBLINGUAL Q5-15M PRN 12/02/18 05/08/19 potassium chloride 20 meq PO DAILY 12/02/18 05/08/19 Previous Rx's Medication Instructions Recorded cyclobenzaprine 10 mg PO Q6HR PRN #30 tab 12/06/18 diazepam 2.5 mg PO BID #20 tab 12/06/18 diazepam [Valium] 5 mg PO Q8HP PRN #30 tab 12/06/18 diphenoxylate-atropine 1 tab PO Q6HP PRN #30 tab 12/06/18 diphenoxylate-atropine [Lomotil] 1 tab PO Q6-8H PRN #30 tab 12/06/18 hydrocodone-acetaminophen 0.5 tab PO Q6HR PRN #30 tab 12/06/18 hydrocodone-acetaminophen 1 tab PO Q4HR PRN #30 tab 12/06/18 lidocaine 1 ea TOPICAL 1900 #30 ea 12/06/18 sennosides [senna] 17.2 mg PO BID #20 tab 12/06/18 oxycodone-acetaminophen [Percocet] 2 tab PO Q6HR #10 tab 01/25/19 amoxicillin-pot clavulanate 1 tab PO Q12H #14 tab 02/22/19 [Augmentin] ciprofloxacin HCl [Cipro] 500 mg PO Q12H #14 tab 02/22/19 metronidazole [Flagyl] 500 mg PO Q8H #21 tab 02/22/19 cephalexin 250 mg PO BID #14 cap 01/12/20 Allergies Allergy/AdvReac Type Severity Reaction Status Date / Time azithromycin Allergy Severe Difficulty Verified 01/12/20 12:34 Breathing Sulfa (Sulfonamide Allergy Mild Verified 01/12/20 12:34 Antibiotics) propoxyphene AdvReac Intermediate UPSET Verified 01/12/20 12:34 STOMACH aspirin AdvReac Mild CONTRAINDICATED Verified 01/12/20 12:34 WITH WARFARIN pantoprazole AdvReac Gastrointestinal Verified 01/12/20 12:34 Upset trazodone AdvReac Depression Verified 01/12/20 12:34 Review of Systems <ARLENE Ordonez - Last Filed: 01/12/20 20:34> Review of Systems Narrative: GENERAL: Denies chills, fatigue, malaise, fever, sweats. HEENT: Denies sinus pain, ear pain, sore throat, difficulty swallowing, dizziness. RESPIRATORY: Denies dyspnea, cough, wheezing, hemoptysis, sputum. CARDIOVASCULAR: Denies chest pain, palpitations, orthopnea, edema, GASTROINTESTINAL: Denies nausea, vomiting, abdominal pain, diarrhea, constipation, melena. : Denies dysuria, frequency, incontinence, hematuria, urinary retention. MUSCULOSKELETAL: See HPI SKIN: See HPI NEUROLOGIC: Denies weakness, headache, numbness, change in speech, confusion, seizures, incoordination. PSYCHIATRIC: No concerning psychosocial issues. 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) IBS (irritable bowel syndrome) (Acute) Laceration (Inactive) Obstructive sleep apnea of adult (Chronic) Surgical History H/O prosthetic aortic valve replacement (Acute) History of cholecystectomy (Acute) History of coronary artery stent placement (Acute) History of ear surgery (Acute) History of hysterectomy (Acute) History of mandibular surgery (Acute) History of sinus surgery (Acute) Social History marital status: details: to Alena, lives in [place] household members: spouse lives independently: Yes caregiver/support person: No housing: house Smoking Status: Never smoker alcohol intake: never Smoking Status: Never smoker alcohol intake frequency: 0-2 drinks per day Substance Use Type: does not use Exam <BHUMIKA Ordonez-BC - Last Filed: 01/12/20 20:34> Narrative Exam Narrative: GENERAL: Chronically ill-appearing elderly female lying on stretcher HEAD: Atraumatic. Normocephalic. No temporal or scalp tenderness. EYES: Pupils equal round and reactive. Extraocular motions intact. No scleral icterus. No injection or drainage. ENT: Nose without bleeding, purulent drainage or septal hematoma. Throat without erythema, tonsillar hypertrophy or exudate. Uvula midline. Airway patent. NECK: Trachea midline. No JVD or lymphadenopathy. Supple, nontender, no meningeal signs. CARDIOVASCULAR: Regular rate and irregular rhythm RESPIRATORY: Clear to auscultation. Breath sounds equal bilaterally. No wheezes, rales, or rhonchi. No cough. No increased respiratory effort. No accessory muscle use. GASTROINTESTINAL: Abdomen soft, non-tender, nondistended. No hepato-splenomegaly, or palpable masses. No guarding. EXTREMITIES: Dorsum of right hand is erythematous, slightly swollen warm to palpation. Full range of motion noted right hand. Left 2nd toe black at tip. Positive pedal pulses bilaterally. Right lower leg wrapped in gauze. Dressing on left knee clean dry and intact. BACK: Nontender without deformity or crepitance. No flank tenderness. NEURO: AOx3. SKIN: See extremity exam Initial Vital Signs Initial Vital Signs: Vital Signs Temperature 98.3 F 01/12/20 12:30 Pulse Rate 65 01/12/20 12:30 Respiratory Rate 20 01/12/20 12:30 Blood Pressure 141/85 H 01/12/20 12:30 Pulse Oximetry 98 01/12/20 12:30 <Porsche Garay DO - Last Filed: 01/16/20 07:06> Initial Vital Signs Initial Vital Signs: Vital Signs Temperature 98.3 F 01/12/20 12:30 Pulse Rate 65 01/12/20 12:30 Respiratory Rate 20 01/12/20 12:30 Blood Pressure 141/85 H 01/12/20 12:30 Pulse Oximetry 98 01/12/20 12:30 Course <BHUMIKA Ordonez-BC - Last Filed: 01/12/20 20:34> Orders Ordered: Discontinued Medications Hydrocodone Bitart/Acetaminophen ([place] 5/325) 2 tab PO NOW ONE Stop: 01/12/20 13:32 Last Admin: 01/12/20 13:40 Dose: 2 tab Documented by: SHANNON Cephalexin HCl (Keflex) 250 mg PO NOW ONE Stop: 01/12/20 17:13 Last Admin: 01/12/20 17:22 Dose: 250 mg Documented by: SHANNON Vital Signs Vital signs: Vital Signs - 8 hr 01/12/20 12:30 01/12/20 12:33 01/12/20 13:00 Temperature 98.3 F Pulse Rate 65 68 60 Respiratory Rate 20 Blood Pressure 141/85 H 141/85 H 126/73 Pulse Oximetry 98 97 99 01/12/20 13:30 01/12/20 14:30 01/12/20 14:57 Temperature Pulse Rate 68 57 L 63 Respiratory Rate Blood Pressure 122/68 Pulse Oximetry 99 98 01/12/20 15:00 01/12/20 15:30 01/12/20 16:00 Temperature Pulse Rate 58 L 55 L 58 L Respiratory Rate Blood Pressure 111/61 127/67 129/60 Pulse Oximetry 96 98 01/12/20 16:38 01/12/20 16:42 01/12/20 17:00 Temperature Pulse Rate 87 54 L 58 L Respiratory Rate Blood Pressure 138/65 113/65 Pulse Oximetry 98 89 L 100 01/12/20 17:30 01/12/20 17:40 Temperature Pulse Rate 60 Respiratory Rate Blood Pressure 106/66 Pulse Oximetry 100 100 <Porsche Garay DO - Last Filed: 01/16/20 07:06> Orders Ordered: Discontinued Medications Hydrocodone Bitart/Acetaminophen ([place] 5/325) 2 tab PO NOW ONE Stop: 01/12/20 13:32 Last Admin: 01/12/20 13:40 Dose: 2 tab Documented by: SHANNON Cephalexin HCl (Keflex) 250 mg PO NOW ONE Stop: 01/12/20 17:13 Last Admin: 01/12/20 17:22 Dose: 250 mg Documented by: SHANNON Vital Signs Vital signs: Vital Signs - 8 hr 01/12/20 12:30 01/12/20 12:33 01/12/20 13:00 Temperature 98.3 F Pulse Rate 65 68 60 Respiratory Rate 20 Blood Pressure 141/85 H 141/85 H 126/73 Pulse Oximetry 98 97 99 01/12/20 13:30 01/12/20 14:30 01/12/20 14:57 Temperature Pulse Rate 68 57 L 63 Respiratory Rate Blood Pressure 122/68 Pulse Oximetry 99 98 01/12/20 15:00 01/12/20 15:30 01/12/20 16:00 Temperature Pulse Rate 58 L 55 L 58 L Respiratory Rate Blood Pressure 111/61 127/67 129/60 Pulse Oximetry 96 98 01/12/20 16:38 01/12/20 16:42 01/12/20 17:00 Temperature Pulse Rate 87 54 L 58 L Respiratory Rate Blood Pressure 138/65 113/65 Pulse Oximetry 98 89 L 100 01/12/20 17:30 01/12/20 17:40 Temperature Pulse Rate 60 Respiratory Rate Blood Pressure 106/66 Pulse Oximetry 100 100 MDM - Extremity (Nontraumatic) <DARIN OrdonezP-BC - Last Filed: 01/12/20 20:34> Lab Data Result diagrams: 01/12/20 14:57 01/12/20 14:57 Labs: Lab Results 01/12/20 01/12/20 01/12/20 Range/Units 14:01 14:57 14:57 WBC 15.0 H (4.5-11.0) X10^3/uL RBC 4.06 (4.0-5.2) X10^6/uL Hgb 11.8 L (12.0-16.0) g/dL Hct 35.9 L (36-46) % MCV 88.4 (80-100) fL MCH 29.0 (26-34) PG MCHC 32.8 (30-36) % RDW 17.0 H (11.6-14.8) % Plt Count 331 (150-400) X10^3/uL Neut % (Auto) 86.8 H (50-75) % Lymph % (Auto) 6.1 L (25-40) % Beckham % (Auto) 6.7 (3-14) % Eos % (Auto) 0.1 L (2-4) % Baso % (Auto) 0.3 (0-2) % Neut # (Auto) 85566 H (2273-3580) /uL Lymph # (Auto) 900 L (6490-3815) /uL Beckham # (Auto) 1000 H (0-900) /uL Eos # (Auto) 0 (0-450) /uL Baso # (Auto) 0 (0-100) /uL PT 26.9 H (10.1-12.7) SECONDS INR 2.3 H (0.9-1.3) Sodium (137-145) mmol/L Potassium (3.4-5.1) mmol/L Chloride (98-107) mmol/L Carbon Dioxide (22-32) mmol/L BUN (7-17) mg/dL Creatinine (0.52-1.04) mg/dL Estimated GFR (>60) mL/min BUN/Creatinine Ratio (6-22) Glucose (80-110) mg/dL Calcium (8.4-10.2) mg/dL Total Bilirubin (0.2-1.3) mg/dL AST (14-36) IU/L ALT (<35) IU/L Alkaline Phosphatase (38-126) U/L Total Protein (6.3-8.2) g/dL Albumin (3.5-5.0) g/dL Globulin (1.7-4.1) g/dL Albumin/Globulin Ratio (1.0-2.8) Urine RBC 0-1/hpf (0-5/HPF) Urine WBC 0-1/hpf (0-5/HPF) Ur Squamous Epith Cells 0-1 /hpf (0-5/HPF) Ur Transition Epith Cell 5-10/hpf H (0-5/HPF) Urine Bacteria None seen (None) Ur Culture Indicated? Specimen cultured 01/12/20 Range/Units 14:57 WBC (4.5-11.0) X10^3/uL RBC (4.0-5.2) X10^6/uL Hgb (12.0-16.0) g/dL Hct (36-46) % MCV (80-100) fL MCH (26-34) PG MCHC (30-36) % RDW (11.6-14.8) % Plt Count (150-400) X10^3/uL Neut % (Auto) (50-75) % Lymph % (Auto) (25-40) % Beckham % (Auto) (3-14) % Eos % (Auto) (2-4) % Baso % (Auto) (0-2) % Neut # (Auto) (9797-9991) /uL Lymph # (Auto) (1045-0899) /uL Beckham # (Auto) (0-900) /uL Eos # (Auto) (0-450) /uL Baso # (Auto) (0-100) /uL PT (10.1-12.7) SECONDS INR (0.9-1.3) Sodium 129 L (137-145) mmol/L Potassium 3.4 (3.4-5.1) mmol/L Chloride 89 L (98-107) mmol/L Carbon Dioxide 35 H (22-32) mmol/L BUN 45 H (7-17) mg/dL Creatinine 1.00 (0.52-1.04) mg/dL Estimated GFR 53.3 L (>60) mL/min BUN/Creatinine Ratio 45.0 H (6-22) Glucose 94 (80-110) mg/dL Calcium 8.4 (8.4-10.2) mg/dL Total Bilirubin 1.1 (0.2-1.3) mg/dL AST 52 H (14-36) IU/L ALT 34 (<35) IU/L Alkaline Phosphatase 53 (38-126) U/L Total Protein 6.2 L (6.3-8.2) g/dL Albumin 3.3 L (3.5-5.0) g/dL Globulin 2.9 (1.7-4.1) g/dL Albumin/Globulin Ratio 1.1 (1.0-2.8) Urine RBC (0-5/HPF) Urine WBC (0-5/HPF) Ur Squamous Epith Cells (0-5/HPF) Ur Transition Epith Cell (0-5/HPF) Urine Bacteria (None) Ur Culture Indicated? Urine Dip Bedside Urine Glucose Negative Bedside Urine Bilirubin - Negative Bedside Urine Ketone - Negative Urine Specific Lynx 1.015 Bedside Urine Occult Blood +/- Bedside Urine pH 6.0 Bedside Urine Protein - Negative Bedside Urine Urobilinogen - Negative Bedside Urine Nitrite - Negative Bedside Urine Leukocytes +/- 15 Esterase Imaging Data US - DVT: Radiologist's Impression: [address] [place] [id number] Ultrasound Report Signed Patient: Farida Nair BETSEYR#: [id number] : 1940Acct:[id number] Age/Sex: 79 / FDate of Service: 01/12/20 Loc: ED Accession Number: [id number] Procedure: US perip venous low extrem lt Ordering Provider: Marilu Rosen PROCEDURE: US PERIP VENOUS LOW EXTREM LT INDICATIONS: SWELLING, PAIN TECHNIQUE: Real-time imaging, as well as color and pulse Doppler interrogation, were performed of the lower extremity deep veins from the inguinal ligament to the popliteal fossa. COMPARISON: [facility], PERIP VENOUS LOW EXTREM LT, 01/17/2018, 13:09. FINDINGS: The common femoral, femoral and popliteal veins are normally compressible, and free of intraluminal thrombus. Color and pulse Doppler demonstrate normal phasic intraluminal flow. There is normal augmentation response to distal compression maneuver. IMPRESSION: Negative for deep venous thrombosis. Dictated by: Micah Cash M.D. on 01/12/2020 at 13:56 Approved by: Micah Cash M.D. on 01/12/2020 at 13:56 Extremity x-ray #1: Radiologist's Impression: [address] [place] [id number] XRay Report Signed Patient: Farida Nair ALEJANDRO#: [id number] : 1940Acct:[id number] Age/Sex: 79 / FDate of Service: 01/12/20 Loc: ED Accession Number: [id number] Procedure: XR toe LT min 2V Ordering Provider: Marilu Rosen PROCEDURE: XR TOE LT MIN 2V INDICATIONS: injury TECHNIQUE: Two views of the left 2nd toe were obtained. COMPARISON: None. FINDINGS: Bones: No acute fracture or dislocation is identified involving the left 2nd toe. No suspicious osseous lesions or definite erosions are appreciated. [id number] degenerative changes of the forefoot joints are present. Soft tissues: No suspicious soft tissue densities. Scattered vascular calcifications are identified. No radiopaque foreign bodies are evident. IMPRESSION: No acute osseous abnormalities of the 2nd toe are evident. Dictated by: Roosevelt Adamson M.D. on 01/12/2020 at 14:25 Approved by: Roosevelt Adamson M.D. on 01/12/2020 at 14:26 Extremity x-ray #2: Radiologist's Impression: [address] [place] [address] XRay Report Signed Patient: Farida Nair ALEJANDRO#: [id number] : 1940Acct:[id number] Age/Sex: 79 / FDate of Service: 01/12/20 Loc: ED Accession Number: [id number] Procedure: XR hand RT min 3V Ordering Provider: Marilu RosenP- PROCEDURE: XR HAND RT MIN 3V INDICATIONS: pain after hitting hand TECHNIQUE: 3 views of the hand(s) acquired. COMPARISON: None. FINDINGS: Bones: Severe degenerative changes involving the interphalangeal joints. No definitive osseous erosions are evident. However, there is bony remodeling and large marginal osteophytes. Given the degree of degenerative changes, evaluation for subtle fractures at these joint is suboptimal. No obvious fractures are evident. The remainder of the imaged osseous structures are intact. The bone mineralization is decreased. No dislocations or suspicious osseous lesions are evident Soft tissues: No suspicious soft tissue calcifications. . Soft tissue swelling on the dorsal aspect of the hand is present. No unexpected radiopaque foreign bodies are evident. Vascular calcifications are noted. IMPRESSION: 1. Soft tissue swelling on the dorsal aspect of the hand. No definite fractures. 2. Severe degenerative changes of the hand are most pronounced involving the interphalangeal joints, suggesting a possible inflammatory arthropathy. Please correlate clinically. Dictated by: Roosevelt Adamson M.D. on 01/12/2020 at 14:26 Approved by: Roosevelt Adamson M.D. on 01/12/2020 at 14:28 Arterial ultrasound: Radiologist's Impression: [address] [place] [address] Ultrasound Report Signed Patient: Farida Nair ALEJANDRO#: [id number] : 1940Acct:[id number] Age/Sex: 79 / FDate of Service: 01/12/20 Loc: ED Accession Number: [id number] Procedure: US arterial duplex LE LT Ordering Provider: Marilu Rosen PROCEDURE: US ARTERIAL DUPLEX LE LT INDICATIONS: BLACK TOE TECHNIQUE: Color and pulse Doppler interrogation was performed of the left lower extremity arterial system, with image documentation. COMPARISON: [facility], ARTERIAL DUPLEX LE LT, 01/17/2018, 13:18. [facility], ARTERIAL DUPLEX LE LT, 12/10/2017, 16:59. FINDINGS: Common femoral artery: 46 cm/sec, with biphasic flow. Deep femoral artery: 25.4 cm/sec, with biphasic flow. Proximal superficial femoral artery: 43.7 cm/sec, with biphasic flow. Mid superficial femoral artery: 33.3 cm/sec, with biphasic flow. Distal superficial femoral artery: 41.9 cm/sec, with biphasic flow. Popliteal artery: 27.2 cm/sec, with biphasic flow. Posterior tibial artery: 45.9 cm/sec, with biphasic flow. Anterior tibial artery/dorsalis pedis: 25.7 cm/sec, with biphasic flow. Aponte-scale imaging description: Patent left lower extremity arterial vasculature without focal high-grade stenosis. Note is made of reduced flow velocities and biphasic waveforms throughout the lower extremity in a pattern suggestive of potential stenosis involving the iliac or distal aortic arterial vasculature. IMPRESSION: Biphasic flow, [id number] reduction in flow velocities but patent arterial flow maintained into the tributaries of the left lower extremity arterial arcade. A definite focus of high-grade stenosis is not found nor is embolic disease identified. MRA angiography may be warranted for more accurate assessment for aortic or iliac artery stenosis in this clinical circumstance. Dictated by: Pj Dave M.D. on 01/12/2020 at 16:18 Approved by: Pj Dave M.D. on 01/12/2020 at 16:23 MDM Narrative Medical decision making narrative: The patient is an 79-year-old female with complicated medical history presents with a chief complaint of a black tip of toe as well as erythematous hand. Given the patient's significant medical history, recent hospitalization, I spoke with Dr. Garay throughout her stay in the emergency department. Patient has pedal pulses, has a negative ultrasound for DVT, negative vascular duplex of her left leg. X-rays are negative of her her hand as well as toe. She has multiple chronic wounds as noted in her HPI, and I think would benefit from wound care. Wound care referral paperwork faxed over from the emergency department. Given the erythema of her hand, she was started on Keflex at renal dosing given her chronic renal failure. Patient's lab work is grossly within normal for patient's history. Lab work and imaging reviewed with Dr. Garay. Discussed at length the importance of following up with primary care provider coming back to the emergency department for any acute concerns. Encouraged follow-up with primary care provider as well. Encouraged follow-up with wound care. Patient and have no questions or concerns upon discharge and state understanding of return precautions as well as follow-up care. <Porsche Garay, DO - Last Filed: 01/16/20 07:06> Lab Data Labs: Lab Results 01/12/20 01/12/20 01/12/20 Range/Units 14:01 14:57 14:57 WBC 15.0 H (4.5-11.0) X10^3/uL RBC 4.06 (4.0-5.2) X10^6/uL Hgb 11.8 L (12.0-16.0) g/dL Hct 35.9 L (36-46) % MCV 88.4 (80-100) fL MCH 29.0 (26-34) PG MCHC 32.8 (30-36) % RDW 17.0 H (11.6-14.8) % Plt Count 331 (150-400) X10^3/uL Neut % (Auto) 86.8 H (50-75) % Lymph % (Auto) 6.1 L (25-40) % Beckham % (Auto) 6.7 (3-14) % Eos % (Auto) 0.1 L (2-4) % Baso % (Auto) 0.3 (0-2) % Neut # (Auto) 16494 H (9760-8598) /uL Lymph # (Auto) 900 L (7272-4187) /uL Beckham # (Auto) 1000 H (0-900) /uL Eos # (Auto) 0 (0-450) /uL Baso # (Auto) 0 (0-100) /uL PT 26.9 H (10.1-12.7) SECONDS INR 2.3 H (0.9-1.3) Sodium (137-145) mmol/L Potassium (3.4-5.1) mmol/L Chloride (98-107) mmol/L Carbon Dioxide (22-32) mmol/L BUN (7-17) mg/dL Creatinine (0.52-1.04) mg/dL Estimated GFR (>60) mL/min BUN/Creatinine Ratio (6-22) Glucose (80-110) mg/dL Calcium (8.4-10.2) mg/dL Total Bilirubin (0.2-1.3) mg/dL AST (14-36) IU/L ALT (<35) IU/L Alkaline Phosphatase (38-126) U/L Total Protein (6.3-8.2) g/dL Albumin (3.5-5.0) g/dL Globulin (1.7-4.1) g/dL Albumin/Globulin Ratio (1.0-2.8) Urine RBC 0-1/hpf (0-5/HPF) Urine WBC 0-1/hpf (0-5/HPF) Ur Squamous Epith Cells 0-1 /hpf (0-5/HPF) Ur Transition Epith Cell 5-10/hpf H (0-5/HPF) Urine Bacteria None seen (None) Ur Culture Indicated? Specimen cultured 01/12/20 Range/Units 14:57 WBC (4.5-11.0) X10^3/uL RBC (4.0-5.2) X10^6/uL Hgb (12.0-16.0) g/dL Hct (36-46) % MCV (80-100) fL MCH (26-34) PG MCHC (30-36) % RDW (11.6-14.8) % Plt Count (150-400) X10^3/uL Neut % (Auto) (50-75) % Lymph % (Auto) (25-40) % Beckham % (Auto) (3-14) % Eos % (Auto) (2-4) % Baso % (Auto) (0-2) % Neut # (Auto) (8978-6350) /uL Lymph # (Auto) (0031-8222) /uL Beckham # (Auto) (0-900) /uL Eos # (Auto) (0-450) /uL Baso # (Auto) (0-100) /uL PT (10.1-12.7) SECONDS INR (0.9-1.3) Sodium 129 L (137-145) mmol/L Potassium 3.4 (3.4-5.1) mmol/L Chloride 89 L (98-107) mmol/L Carbon Dioxide 35 H (22-32) mmol/L BUN 45 H (7-17) mg/dL Creatinine 1.00 (0.52-1.04) mg/dL Estimated GFR 53.3 L (>60) mL/min BUN/Creatinine Ratio 45.0 H (6-22) Glucose 94 (80-110) mg/dL Calcium 8.4 (8.4-10.2) mg/dL Total Bilirubin 1.1 (0.2-1.3) mg/dL AST 52 H (14-36) IU/L ALT 34 (<35) IU/L Alkaline Phosphatase 53 (38-126) U/L Total Protein 6.2 L (6.3-8.2) g/dL Albumin 3.3 L (3.5-5.0) g/dL Globulin 2.9 (1.7-4.1) g/dL Albumin/Globulin Ratio 1.1 (1.0-2.8) Urine RBC (0-5/HPF) Urine WBC (0-5/HPF) Ur Squamous Epith Cells (0-5/HPF) Ur Transition Epith Cell (0-5/HPF) Urine Bacteria (None) Ur Culture Indicated? Urine Dip Bedside Urine Glucose Negative Bedside Urine Bilirubin - Negative Bedside Urine Ketone - Negative Urine Specific Lynx 1.015 Bedside Urine Occult Blood +/- Bedside Urine pH 6.0 Bedside Urine Protein - Negative Bedside Urine Urobilinogen - Negative Bedside Urine Nitrite - Negative Bedside Urine Leukocytes +/- 15 Esterase Discharge Plan Departure Patient Disposition: Home Clinical Impression: Ecchymosis Cellulitis Qualifiers: Site of cellulitis: extremity Site of cellulitis of extremity: upper extremity Laterality: right Qualified Code(s): L03.113 - Cellulitis of right upper limb Wound, open, toe Qualifiers: Encounter type: initial encounter Qualified Code(s): S91.109A - Unspecified open wound of unspecified toe(s) without damage to nail, initial encounter Discharge Date/Time: 01/12/20 18:39 Instructions: DI for Cellulitis -- Adult, Minor Wounds (Alternative Therapy) Activity Restrictions/Additional Instructions: Thank you for trusting us with your care today As discussed, please follow-up with primary care provider in the next few days. I am faxing over information to refer you [facility] You can contact them at . Please take the antibiotic with probiotic or yogurt. I suggest Align. Please come back to emergency department for any acute concerns. Prescriptions: New cephalexin 250 mg capsule 250 mg PO BID Qty: 14 RF: 0 No Action triamcinolone acetonide [Nasacort] 55 MCG/PUFF aerosol,spray 1 puff Intranasal QDAYP PRN (Reason: Congestion) Qty: 0 RF: 0 levothyroxine 112 MCG tablet 0.1 mg PO QDAY Qty: 0 RF: 0 fluticasone propion-salmeterol [Advair Diskus] 250 MCG/50 MCG blister with device 1 puff INH BID Qty: 0 RF: 0 acetaminophen [Tylenol Extra Strength] 500 MG tablet 500 mg PO Q6HP PRN (Reason: Pain, Mild) Qty: 0 RF: 0 [ALAWAY 0.025%] 1 drp OPHTH BID Qty: 0 RF: 0 atorvastatin 80 mg tablet 80 mg PO BEDTIME RF: 0 nystatin 100,000 unit/mL suspension 5 ml PO QID RF: 0 cetirizine [Zyrtec] 10 mg Tablet 10 mg PO DAILY PRN (Reason: Allergy Symptoms) RF: 0 ketotifen fumarate [Alaway] 0.025 % (0.035 %) Drops 1 drp ophthalmic (eye) BID RF: 0 warfarin 2 mg tablet 3 mg PO DAILY RF: 0 furosemide 20 mg tablet 40 mg PO DAILY RF: 0 levalbuterol tartrate [Xopenex HFA] 45 mcg/actuation Hfa Aerosol Inhaler 1 puff INHALATION Q4H PRN (Reason: Shortness Of Breath) RF: 0 Vitamin D3 3,000 unit tablet 1 tab PO DAILY RF: 0 budesonide 3 MG capsule,delayed,extend.release 9 mg PO QDAY RF: 0 nitroglycerin 0.3 mg Tablet, Sublingual 0.6 mg SUBLINGUAL Q5-15M PRN (Reason: Chest Pain) RF: 0 potassium chloride 20 mEq/15 mL Liquid 20 meq PO DAILY RF: 0 cyclobenzaprine 10 mg Tablet 10 mg PO Q6HR PRN (Reason: Spasms) Qty: 30 RF: 0 sennosides [senna] 8.6 mg Tablet 17.2 mg PO BID Qty: 20 RF: 0 hydrocodone-acetaminophen 5-325 mg Tablet 0.5 tab PO Q6HR PRN (Reason: Pain, Moderate (4-6)) Qty: 30 RF: 0 hydrocodone-acetaminophen 5-325 mg Tablet 1 tab PO Q4HR PRN (Reason: Pain, Moderate (4-6)) Qty: 30 RF: 0 lidocaine 5 % Adhesive Patch,Medicated 1 ea topical 1900 Qty: 30 RF: 0 diazepam 5 mg Tablet 2.5 mg PO BID Qty: 20 RF: 0 diphenoxylate-atropine 2.5 MG/0.025 MG tablet 1 tab PO Q6HP PRN (Reason: Diarrhea) Qty: 30 RF: 0 diphenoxylate-atropine [Lomotil] 2.5-0.025 mg Tablet 1 tab PO Q6-8H PRN (Reason: Diarrhea) Qty: 30 RF: 0 diazepam [Valium] 5 MG tablet 5 mg PO Q8HP PRN (Reason: Anxiety) Qty: 30 RF: 0 oxycodone-acetaminophen [Percocet] 5-325 mg tablet 2 tab PO Q6HR Qty: 10 RF: 0 metronidazole [Flagyl] 500 mg tablet 500 mg PO Q8H Qty: 21 RF: 0 ciprofloxacin HCl [Cipro] 500 mg tablet 500 mg PO Q12H Qty: 14 RF: 0 amoxicillin-pot clavulanate [Augmentin] 875-125 mg tablet 1 tab PO Q12H Qty: 14 RF: 0 (DME) Respironics [employer] Auto CPAP Qty: 1 RF: 0 metoprolol succinate 50 mg tablet extended release 24 hr 50 mg PO DAILY RF: 0 mirtazapine 7.5 mg tablet 7.5 mg PO DAILY RF: 0 ranitidine HCl [Zantac] 150 mg tablet 150 mg PO DAILY RF: 0 clopidogrel [Plavix] 75 mg tablet 75 mg PO DAILY RF: 0 Referrals: Iggy Trujillo MD [Primary Care Provider] - <Porsche Garay DO - Last Filed: 01/16/20 07:06> Cosign ED Attending Mikyature Attestation: I was immediately available in the department for consultation. Documentation has been reviewed. I agree with assessment and plan.
== END 2020-01-12 18:39 | disposition home or self-care (01) ==
PROVIDERS: Emergency Provider Nurse Practitioner Family; PCP Internal Medicine
DX: L03.113 Cellulitis of right upper limb (principal); S91.109A Unspecified open wound of unspecified toe(s) without damage to nail, initial encounter; R58 Hemorrhage, not elsewhere classified; Z95.5 Presence of coronary angioplasty implant and graft; I48.91 Unspecified atrial fibrillation; Z79.01 Long term (current) use of anticoagulants
CPT/HCPCS: 73130; 73660; 80053; 81003; 81015; 85025; 85610; 87086; 93926; 93971; 99284

== ENCOUNTER → 2020-01-14 13:32 | Outpatient (CLI) | payer MEDICARE, OTHER, SELFPAY ==
[2018-12-02 03:32] VITALS: BMI 27.1
== END ==
PROVIDERS: Family Provider Internal Medicine; PCP Internal Medicine; Referring Provider Nurse Practitioner Family; Visit Provider Family Medicine
DX: S81.002A Unspecified open wound, left knee, initial encounter (principal); S91.105A Unspecified open wound of left lesser toe(s) without damage to nail, initial encounter; S90.822A Blister (nonthermal), left foot, initial encounter
CPT/HCPCS: 36415; 85651; 86038; 86140; 86430; 97597; 99214

== ENCOUNTER → 2020-01-14 15:57 | Outpatient (CLI) | payer MEDICARE, OTHER, SELFPAY ==
[2018-12-02 03:32] VITALS: BMI 27.1
[2020-01-14 17:30] LABS: Rheumatoid Factor < 8.6 IU/mL (<12.0)
[2020-01-14 17:37] LABS: Erythrocyte Sedimentation Rate 68 MM/HR (0-20)
[2020-01-20 11:21] LABS: ANA Screen, IFA NEGATIVE
== END ==
PROVIDERS: Family Provider Internal Medicine; PCP Internal Medicine; Referring Provider Family Medicine; Visit Provider Family Medicine
DX: I73.00 Raynaud's syndrome without gangrene (principal); R23.1 Pallor; K12.0 Recurrent oral aphthae; M25.542 Pain in joints of left hand; M25.541 Pain in joints of right hand; R53.81 Other malaise
CPT/HCPCS: 36415; 85651; 86038; 86140; 86430

== ENCOUNTER → 2020-01-20 10:45 | Outpatient (CLI) | payer MEDICARE, OTHER, SELFPAY ==
[2018-12-02 03:32] VITALS: BMI 27.1
== END ==
PROVIDERS: Family Provider Internal Medicine; PCP Internal Medicine; Referring Provider Internal Medicine; Visit Provider Family Medicine
DX: S81.802A Unspecified open wound, left lower leg, initial encounter (principal); S91.105A Unspecified open wound of left lesser toe(s) without damage to nail, initial encounter; S81.801A Unspecified open wound, right lower leg, initial encounter; S91.302A Unspecified open wound, left foot, initial encounter; S80.11XA Contusion of right lower leg, initial encounter; S80.12XA Contusion of left lower leg, initial encounter; R23.4 Changes in skin texture; K12.0 Recurrent oral aphthae; D69.2 Other nonthrombocytopenic purpura; M65.841 Other synovitis and tenosynovitis, right hand; D68.61 Antiphospholipid syndrome; Z79.01 Long term (current) use of anticoagulants; I73.9 Peripheral vascular disease, unspecified; I50.32 Chronic diastolic (congestive) heart failure; I25.10 Atherosclerotic heart disease of native coronary artery without angina pectoris; R26.89 Other abnormalities of gait and mobility; D72.828 Other elevated white blood cell count; E87.1 Hypo-osmolality and hyponatremia; R53.83 Other fatigue; R60.0 Localized edema; R06.02 Shortness of breath; R06.00 Dyspnea, unspecified; L60.1 Onycholysis; R70.0 Elevated erythrocyte sedimentation rate; R79.82 Elevated C-reactive protein (CRP)
CPT/HCPCS: 11042; 99214

== ENCOUNTER → 2020-01-27 08:18 | Outpatient (CLI) | payer MEDICARE, OTHER, SELFPAY ==
[2018-12-02 03:32] VITALS: BMI 27.1
--- NOTE | 2020-01-27 | DI.RAD.S_ITS ---
PROCEDURE: XR LUMBAR SPINE 2-3V INDICATIONS: BACK PAIN TECHNIQUE: 3 views of the lumbar spine were acquired. COMPARISON: [facility], CT, CT LUMBAR SPINE WO CON, 12/02/2018, 15:31. [facility], CR, XR LUMBAR SPINE 2-3V, 04/16/2019, 13:22. FINDINGS: Bones: 5 [id number] vertebrae are present. There is normal bony alignment. There is moderate vertebral body compression fractures at L1 and L3 with approximately 50% loss of vertebral body height. Degenerative disc disease is present, severe at L5-S1, moderate at other levels. There is moderate to severe facet arthropathy at L4-L5 and L5-S1. No suspicious bony lesions. Soft tissues: Surgical clips are present in right abdomen. Overlying bowel gas pattern is normal. Aortic, splenic artery and bilateral iliac artery calcifications consistent with atherosclerosis. A large amount of stool in colon. IMPRESSION: 1. Stable moderate compression fractures of L1 and L3. 2. Degenerative disc and facet disease. 3. Extensive atherosclerosis. Dictated by: Prisca Oliveira M.D. on 01/27/2020 at 10:12 Approved by: Prisca Oliveira M.D. on 01/27/2020 at 10:16
--- NOTE | 2020-01-27 | DI.MRI.S_ITS ---
PROCEDURE: MR RUN OFF 3 STAGES ABD START INDICATIONS: Wedge compression fracture of first lumbar vertebra, subsequ TECHNIQUE: Precontrast axial and coronal TruFISP acquired through the abdomen and pelvis. Multi-station dynamic coronal MRA using Care Bolus timing from the kidneys to the ankles during the administration of contrast, with 3-dimensional maximum intensity projection (MIP) reformats constructed. COMPARISON: [facility], US, US ARTERIAL DUPLEX LE , 01/12/2020, 14:17. FINDINGS: Image quality: Excellent. ABDOMEN: Aorta: Aorta is normal in caliber and is patent. Minimal luminal irregularity consistent with plaque. Renal arteries: Renal arteries all appear patent. Extravascular soft tissues: Visualized solid organs are normal in size on limited pre-contrast images. Bowel loops are normal in caliber. No free fluid. No retroperitoneal or mesenteric adenopathy by size criteria. Bones: Marrow demonstrates normal overall signal. PELVIS AND BILATERAL LOWER EXTREMITIES: Right sided vessels: Common iliac, external iliac, common femoral, profundus, and SFA are patent. Popliteal is patent. Posterior tibial is a patent vessel, and is the dominant supply to the foot. Anterior tibial has distal stenoses and possible occlusion. Peroneal is probably a diseased vessel. Left sided vessels: Common iliac, external iliac, common femoral, profundus, and SMA and popliteal are widely patent. Anterior tibial and posterior tibial are patent. Peroneal is likely diseased. IMPRESSION: 1. There is wide vascular patency from the abdominal aorta through the popliteal arteries bilaterally. 2. Distal right lower extremity runoff is significant for a patent posterior tibial artery, functioning as the dominant artery feeding the foot. 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 The peroneal is probably a diseased vessel. 3. Left lower extremity runoff is significant for patency of the anterior tibial and posterior tibial and probable peroneal stenotic disease. Dictated by: Mansoor Starkey M.D. on 01/27/2020 at 14:17 Approved by: Mansoor Starkey M.D. on 01/27/2020 at 14:23
[2020-01-27 10:22] LABS: BUN Creatinine Ratio 37.8 (6-22); Blood Urea Nitrogen 37 mg/dL (7-17); Calcium 9.2 mg/dL (8.4-10.2); Carbon Dioxide 32 mmol/L (22-32); Chloride 91 mmol/L (98-107); Estimated Glomerular Filt Rate 54.6 mL/min (>60); Glucose 93 mg/dL (80-110); HEMOLYSIS < 15 (0-50); Magnesium 2.2 mg/dL (1.6-2.3); Potassium 4.4 mmol/L (3.4-5.1); Sodium 129 mmol/L (137-145); Uric Acid 7.4 mg/dL (2.5-6.2)
[2020-01-27 17:20] LABS: Creatinine Urine Random 18.7 mg/dL
[2020-01-27 17:25] LABS: Microalbumi Creatinin Ratio Ur 85.5 ug/mg CR (<30); Microalbumin Urine Random 1.6 mg/dL (0-1.6)
[2020-01-28 13:46] LABS: Osmolality Urine 275 mOsmol/kg (.)
== END ==
PROVIDERS: Family Provider Internal Medicine; PCP Internal Medicine; Referring Provider Internal Medicine Nephrology; Visit Provider Family Medicine
DX: S32.010G Wedge compression fracture of first lumbar vertebra, subsequent encounter for fracture with delayed healing (principal); E87.1 Hypo-osmolality and hyponatremia; I70.0 Atherosclerosis of aorta; I70.203 Unspecified atherosclerosis of native arteries of extremities, bilateral legs; I70.8 Atherosclerosis of other arteries; M54.9 Dorsalgia, unspecified; M51.36 Other intervertebral disc degeneration, lumbar region; M51.37 Other intervertebral disc degeneration, lumbosacral region; M47.816 Spondylosis without myelopathy or radiculopathy, lumbar region; M47.817 Spondylosis without myelopathy or radiculopathy, lumbosacral region; N17.9 Acute kidney failure, unspecified; N25.89 Other disorders resulting from impaired renal tubular function
CPT/HCPCS: 36415; 72100; 80048; 82043; 82570; 83735; 83935; 84550; C8902; C8912; C8918; A9579

== ENCOUNTER → 2020-01-27 15:02 | Outpatient (CLI) | payer MEDICARE, OTHER, SELFPAY ==
[2018-12-02 03:32] VITALS: BMI 27.1
== END ==
PROVIDERS: Family Provider Internal Medicine; PCP Internal Medicine; Referring Provider Internal Medicine; Visit Provider Family Medicine
DX: S81.802A Unspecified open wound, left lower leg, initial encounter (principal); S91.105A Unspecified open wound of left lesser toe(s) without damage to nail, initial encounter; S81.801A Unspecified open wound, right lower leg, initial encounter; S91.302A Unspecified open wound, left foot, initial encounter; S80.11XA Contusion of right lower leg, initial encounter; S80.12XA Contusion of left lower leg, initial encounter; R23.4 Changes in skin texture; K12.0 Recurrent oral aphthae; D69.2 Other nonthrombocytopenic purpura; M65.841 Other synovitis and tenosynovitis, right hand; D68.61 Antiphospholipid syndrome; Z79.01 Long term (current) use of anticoagulants; I50.32 Chronic diastolic (congestive) heart failure; I25.10 Atherosclerotic heart disease of native coronary artery without angina pectoris; R26.89 Other abnormalities of gait and mobility; D72.828 Other elevated white blood cell count; E87.1 Hypo-osmolality and hyponatremia; R53.83 Other fatigue; R60.0 Localized edema; R06.02 Shortness of breath; R06.00 Dyspnea, unspecified; L60.1 Onycholysis; R70.0 Elevated erythrocyte sedimentation rate; R79.82 Elevated C-reactive protein (CRP); S32.010G Wedge compression fracture of first lumbar vertebra, subsequent encounter for fracture with delayed healing; I70.0 Atherosclerosis of aorta; I70.203 Unspecified atherosclerosis of native arteries of extremities, bilateral legs; I70.8 Atherosclerosis of other arteries; M54.9 Dorsalgia, unspecified; M51.36 Other intervertebral disc degeneration, lumbar region; M51.37 Other intervertebral disc degeneration, lumbosacral region; M47.816 Spondylosis without myelopathy or radiculopathy, lumbar region; M47.817 Spondylosis without myelopathy or radiculopathy, lumbosacral region; N25.89 Other disorders resulting from impaired renal tubular function; N17.9 Acute kidney failure, unspecified
CPT/HCPCS: 11042; 11045; 36415; 72100; 80048; 82043; 82570; 83735; 83935; 84550; 97597; C8902; C8912; C8918; A9579